=== PATIENT | male | born 1950 | race Caucasian/White ===

== ENCOUNTER 2018-06-04 08:53 | Outpatient (CLI) | payer MEDICARE, BC, SELFPAY | END 2018-06-04 08:54 | PROVIDERS: PCP Family Medicine; Visit Provider Surgery | DX: R10.13 Epigastric pain (principal); I10 Essential (primary) hypertension | CPT/HCPCS: 99213 ==

== ENCOUNTER 2018-08-14 07:35 | Outpatient (CLI) | payer MEDICARE, BC, SELFPAY ==
[2018-08-14 08:02] LABS: Abs Immature Grans 0.02 k/cumm (0.0-0.09); Absolute Basophil Count 0.02 k/cumm (0.0-0.2); Absolute Eosinophil Count 0.11 k/cumm (0.0-0.7); Absolute Lymphocyte Count 2.03 k/cumm (1.2-3.4); Absolute Monocyte Count 0.34 k/cumm (0.11-0.7); Absolute Neutrophil Count 2.65 k/cumm (1.2-6.7); Basophils % 0.4; Eosinophils % 2.1; HCT 42.2 % (40.0-50.0); Immature Grans % 0.4; Lymphocytes % 39.3; Mean Corp. HGB Concentration 33.2 g/dL (32.0-36.0); Mean Corpuscular Volume 96.3 fL (80-95); Mean Platelet Volume 8.9 fL (8.0-11.0); Monocytes % 6.6; Neutrophils % 51.2; Platelet Count 115 x1000/uL (130-400); RBC 4.38 m/cumm (4.50-6.00); RBC Distribution Width 12.7 % (11.8-14.1); White Blood Cell Count 5.17 k/cumm (4.4-10.8)
[2018-08-14 08:14] LABS: ALT 55 U/L (12-78); AST 27 U/L (15-37); Albumin 3.4 g/dL (3.4-5.0); Alkaline Phosphatase 189 U/L (46-116); Anion Gap 6.3 mmol/L (3-11); BUN 36 mg/dL (7-18); Bilirubin, Total 0.5 mg/dL (0.2-1.0); CO2 29.7 mmol/L (21.0-32.0); Calcium 9.1 mg/dL (8.5-10.1); Chloride 104 mmol/L (98-107); Estimated GFR 40.53 (mL/min/1.73m2); Glucose 117 mg/dL (70-100); LDH 71 U/L (85-227); Potassium 4.6 mmol/L (3.5-5.1); Sodium 140 mmol/L (136-145); Total Protein 5.8 g/dL (6.4-8.2)
== END 2018-08-14 07:55 ==
PROVIDERS: PCP Family Medicine; Visit Provider Internal Medicine Hematology & Oncology
DX: C91.90 Lymphoid leukemia, unspecified not having achieved remission (principal); C83.30 Diffuse large B-cell lymphoma, unspecified site
CPT/HCPCS: 36415; 80053; 83615; 85025

== ENCOUNTER 2019-03-26 01:44 | Outpatient (CLI) | payer MEDICARE, BC, SELFPAY ==
[2019-03-26 08:55] LABS: Abs Immature Grans 0.01 k/cumm (0.0-0.09); Absolute Basophil Count 0.03 k/cumm (0.0-0.2); Absolute Eosinophil Count 0.09 k/cumm (0.0-0.7); Absolute Lymphocyte Count 2.21 k/cumm (1.2-3.4); Absolute Monocyte Count 0.36 k/cumm (0.11-0.7); Absolute Neutrophil Count 2.26 k/cumm (1.2-6.7); Basophils % 0.6; Eosinophils % 1.8; HCT 45.7 % (40.0-50.0); HGB 15.5 g/dL (13.5-17.5); Immature Grans % 0.2; Lymphocytes % 44.6; Mean Corp. HGB Concentration 33.9 g/dL (32.0-36.0); Mean Corpuscular Hemoglobin 31.2 pg (27.0-33.0); Mean Platelet Volume 9.9 fL (8.0-11.0); Monocytes % 7.3; Neutrophils % 45.5; Platelet Count 110 x1000/uL (130-400); RBC 4.97 m/cumm (4.50-6.00); RBC Distribution Width 12.4 % (11.8-14.1); White Blood Cell Count 4.96 k/cumm (4.4-10.8)
[2019-03-26 09:16] LABS: ALT 31 U/L (12-78); AST 23 U/L (15-37); Albumin 3.7 g/dL (3.4-5.0); Alkaline Phosphatase 118 U/L (46-116); Anion Gap 7.4 mmol/L (3-11); BUN 32 mg/dL (7-18); Bilirubin, Total 0.6 mg/dL (0.2-1.0); CO2 29.6 mmol/L (21.0-32.0); CREATININE 1.88 mg/dL (0.70-1.30); Calcium 8.7 mg/dL (8.5-10.1); Chloride 103 mmol/L (98-107); Estimated GFR 36.08 (mL/min/1.73m2); Glucose 92 mg/dL (70-100); LDH 92 U/L (85-227); Potassium 4.2 mmol/L (3.5-5.1); Sodium 140 mmol/L (136-145)
== END 2019-03-26 02:04 ==
PROVIDERS: PCP Family Medicine; Visit Provider Internal Medicine Hematology & Oncology
DX: C91.90 Lymphoid leukemia, unspecified not having achieved remission (principal)
CPT/HCPCS: 36415; 80053; 83615; 85025

== ENCOUNTER 2019-07-18 01:21 | Outpatient (CLI) | payer MEDICARE, BC, SELFPAY ==
[2019-07-18 08:57] LABS: Abs Immature Grans 0.02 k/cumm (0.0-0.09); Absolute Basophil Count 0.03 k/cumm (0.0-0.2); Absolute Eosinophil Count 0.11 k/cumm (0.0-0.7); Absolute Lymphocyte Count 2.95 k/cumm (1.2-3.4); Absolute Neutrophil Count 4.99 k/cumm (1.2-6.7); Basophils % 0.3; Eosinophils % 1.3; HCT 47.2 % (40.0-50.0); HGB 16.1 g/dL (13.5-17.5); Immature Grans % 0.2; Lymphocytes % 33.9; Mean Corp. HGB Concentration 34.1 g/dL (32.0-36.0); Mean Corpuscular Hemoglobin 30.8 pg (27.0-33.0); Mean Corpuscular Volume 90.4 fL (80-95); Mean Platelet Volume 9.2 fL (8.0-11.0); Monocytes % 6.9; Neutrophils % 57.4; Platelet Count 127 x1000/uL (130-400); RBC 5.22 m/cumm (4.50-6.00); RBC Distribution Width 12.9 % (11.8-14.1)
[2019-07-18 09:10] LABS: ALT 40 U/L (16-63); AST 34 U/L (15-37); Alkaline Phosphatase 108 U/L (46-116); Anion Gap 8.5 mmol/L (3-11); BUN 38 mg/dL (7-18); Bilirubin, Total 0.9 mg/dL (0.2-1.0); CO2 27.5 mmol/L (21.0-32.0); CREATININE 1.71 mg/dL (0.70-1.30); Chloride 103 mmol/L (98-107); Estimated GFR 40.25 (mL/min/1.73m2); Glucose 92 mg/dL (70-100); LDH 100 U/L (85-227); Potassium 4.3 mmol/L (3.5-5.1); Sodium 139 mmol/L (136-145); Total Protein 6.4 g/dL (6.4-8.2)
== END 2019-07-18 01:41 ==
PROVIDERS: PCP Family Medicine; Visit Provider Internal Medicine Hematology & Oncology
DX: C91.90 Lymphoid leukemia, unspecified not having achieved remission (principal)
CPT/HCPCS: 36415; 80053; 83615; 85025

== ENCOUNTER 2019-12-24 01:45 | Outpatient (CLI) | payer MEDICARE, BC, SELFPAY ==
[2019-12-24 09:28] LABS: Abs Immature Grans 0.02 k/cumm (0.0-0.09); Absolute Basophil Count 0.02 k/cumm (0.0-0.2); Absolute Eosinophil Count 0.06 k/cumm (0.0-0.7); Absolute Lymphocyte Count 2.03 k/cumm (1.2-3.4); Absolute Monocyte Count 0.78 k/cumm (0.11-0.7); Basophils % 0.2; Eosinophils % 0.6; HGB 15.5 g/dL (13.5-17.5); Immature Grans % 0.2 %; Lymphocytes % 21.3; Mean Corp. HGB Concentration 33.7 g/dL (32.0-36.0); Mean Corpuscular Hemoglobin 30.6 pg (27.0-33.0); Mean Corpuscular Volume 90.9 fL (80-95); Mean Platelet Volume 9.5 fL (8.0-11.0); Monocytes % 8.2; Neutrophils % 69.5; Platelet Count 110 x1000/uL (130-400); RBC 5.06 m/cumm (4.50-6.00); RBC Distribution Width 12.8 % (11.8-14.1); White Blood Cell Count 9.51 k/cumm (4.4-10.8)
[2019-12-24 09:47] LABS: ALT 76 U/L (16-63); AST 42 U/L (15-37); Albumin 3.5 g/dL (3.4-5.0); Alkaline Phosphatase 138 U/L (46-116); Anion Gap 6.5 mmol/L (3-11); BUN 28 mg/dL (7-18); Bilirubin, Total 0.7 mg/dL (0.2-1.0); CO2 30.5 mmol/L (21.0-32.0); CREATININE 1.68 mg/dL (0.70-1.30); Calcium 8.9 mg/dL (8.5-10.1); Chloride 102 mmol/L (98-107); Estimated GFR 40.96 (mL/min/1.73m2); Glucose 110 mg/dL (74-106); LDH 106 U/L (85-227); Potassium 4.2 mmol/L (3.5-5.1); Sodium 139 mmol/L (136-145); Total Protein 6.2 g/dL (6.4-8.2)
== END 2019-12-24 02:05 ==
PROVIDERS: PCP Family Medicine; Visit Provider Internal Medicine Hematology & Oncology
DX: C83.30 Diffuse large B-cell lymphoma, unspecified site (principal)
CPT/HCPCS: 36415; 80053; 83615; 85025

== ENCOUNTER 2020-02-25 19:43 | Observation (INO) | payer MEDICARE, BC, SELFPAY ==
--- NOTE | 2020-02-25 19:45 | DI.CT_ITS ---
EXAM: CT HEAD WO CLINICAL HISTORY: AMS TECHNIQUE: COMPARISON: No exams were available for comparison FINDINGS: Noncontrast cranial CT was performed. There is moderate generalized cerebral atrophy and there are p atchy areas of decreased attenuation in periventricular white matter consistent with microvascular is chemic changes. There is no evidence of acute intracranial hemorrhage, mass effect, or midline shift . The orbital and temporal bone structures appear intact. Paranasal sinuses and mastoid air cells appe ar clear as visualized. IMPRESSION: Atrophy and microvascular ischemic changes very prominent for this age group. No acute abnormality s een.
--- NOTE | 2020-02-25 19:45 | DI.RAD_ITS ---
EXAM: XR CHEST 2V PA LATERAL CLINICAL HISTORY: AMS TECHNIQUE: 2D digital imaging was performed. COMPARISON: CR CHEST 2 VIEWS PA,LAT from 07/08/2016 FINDINGS: The heart is not enlarged. The lungs are clear and well expanded. No pleural effusion seen. Mediastin al contours appear intact. IMPRESSION: Normal chest
[2020-02-25 19:49] VITALS: BP 170/106; PULSE 98; RESP 16; TEMP 36.6; O2SAT 97
[2020-02-25 19:52] VITALS: RESP 16
--- NOTE | 2020-02-25 19:57 | ED.GENADUL_ITS ---
Discharge Plan Disposition Patient Disposition: [facility] INPATIENT Condition: Good Discharge Details Chief Complaint: GenMedical Clinical Impression: Amnesia Admit Date/Time: 02/25/20 21:51 Admit Provider: Devin Jeffrey Attending Provider: Chelsea Vega Primary Care Provider: Terence Morton ED Provider: Brian Courtney Hospital Course Hospital Course: Mr Vega is a 69 year old male with PMHx of CLL s/p stem cell transplant, as well as hypertension, CKD III (baseline Cr 1.6-1.8), and underlying mild congnitive impairement who was observed on [facility] hospitalist service from 02/25/2020 - 02/26/2020 after having an episode of confusion/forgetfulness and repetitive speech on top of his baseline word-finding issues, asking the same question over and over. His symptoms had mostly resolved by the time he was examined by the admitting provider. The patient's workup consisted of negative non-contrast CT of the head, showing atrophy and pronounced microvascular changes. 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 He did not have carotid disease on ultrasound or MRA. His echocardiogram result is still pending and should be followed up by PCP. His BP was quite labile today but will need to be followed up in an outpatient setting by PCP prior to initiating any antihypertensives. The patient was evaluated by Dr Dawkins of neurology in consultation, whose impression was that the patient had transient global amnesia. He is being discharged home today at his neurologic baseline with instructions to take asa 81 mg PO daily and to follow up with neurology in 4-6 weeks. Discharge Instructions Instructions: Transient Global Amnesia (GEN) Additional Instructions: Return to the hospital with any fever, bleeding, chest pain, shortness of breath, or return/ new neurological deficits. Follow up with you PCP in 1-2 weeks and with neurology in 4-6 weeks. Forms: Nursing Discharge Form Referrals: Terence Morton MD [Primary Care Provider] - (please call to follow up ) Di Dawkins MD [ [facility] STAFF PHYSICIAN] - (Transient global amnesia - 4-6 weeks) Discharge Data Discharge Date/Time-TO BE ENTERED AT DEPARTURE: 02/25/20 23:15 Medical Decision Making <Daya Piburn, PA - Last Filed: 02/27/20 16:29> Patient is a pleasant 69-year-old male, accompanied by his , with chief complaint of confusion. Patient initially came in by himself and was unclear as to why he was in the department. Subsequently, we had his come in reports that he has been confused for the past hour. She reports mild confusion earlier in the day, estimates this began approximately 6 hours ago but noted an acute decline 1 hour ago. States that typically he might have some mild forgetfulness which one would deem normal. However, had never noticed episode like this historically. Reports that he cannot recall events earlier in the day, was unclear who he had been on the phone with just prior to being asked. Denied any other symptoms throughout the time of symptoms. and patient do report increased stress and anxiety around COVID. No recent life changes otherwise. Patient is not on any medication. Denies any drug or alcohol use. On exam, patient is resting comfortably. He appears to be in no acute distress. He is alert and oriented x3 although he is clearly confused about the events earlier today and seems to be reaching for these memories. His speech is clear and appropriate. I am not finding any neurologic deficit aside from him having difficulty with memory finding from the course of the day. Do not see any evidence of trauma. No nuchal rigidity or evidence of infection. Lungs are clear, normal cardiac exam. Patient is noted to be hypertensive with a blood pressure of 170/106. Pulse rate is 98. EKG was reviewed by Dr. Courtney. Patient is in normal sinus rhythm with a rate of 86. No acute ischemic changes noted. Differential diagnosis includes CVA, TIA, metabolic derangement, seizure, transient global amnesia versus other. Will obtain head CT with and without contrast as well as laboratory evaluation. Discussed this plan with the patient and his . BGL 149 Plan of my shift, care was transitioned to Dr. Courtney with labs and imaging pending. <Brian Courtney DO - Last Filed: 02/25/20 21:56> Case was seen by Daya Rinaldi, and seen in conjunction with myself. Please refer to her HPI, physical exam, assessment and plan. 69-year-old male with a past medical history of CLL, hypertension, presents today for evaluation of memory changes. Starting this morning his noticed that he was having a slightly more challenging time than normal forming sentences and getting his words straight. No slurring of his speech or mispronunciations though. Later in the day they had a few events in particular that one would think would be memorable however later upon quizzing the patient did not recall any of these events. He was notably frustrated later in the day for a lack of recollection for various things he had ordered online, events that occurred during the day, other components. There is been a transient slight improvement upon his arrival here, and he seems to have understanding of what he had forgotten, and is now starting to remember some components. Physical exam is notably benign with no focal neurologic deficits or signs of significant abnormality. Vital signs are stable aside from mild hypertension. Differential is broad, but includes transient global amnesia, less likely atypical seizure, stroke, symptoms are clinically inconsistent with meningitis, trauma, or dysrhythmia. EKG benign. Metabolic abnormality potential but unlikely. Laboratory work-up and imaging will be performed for further evaluation. 9:43 PM Laboratory work-up has returned, no significant abnormalities, BUN and creatinine is slightly elevated, however this is near his baseline. Troponin normal. TSH normal. Ammonia unremarkable. EKG shows sinus rhythm, no other significant abnormalities. Chest x-ray negative for acute process, CT scan of the head negative for acute process except for a small punctate skin and scalp calcification unrelated to trauma. On reassessment the patient is feeling well, memory is returning but he still demonstrating memory deficit which is again notably atypical for the patient. He does not recall all of the conversations that we had earlier in her visit. I do feel that the patient would benefit from admission MRI carotid ultrasound. Differential still is highest for transient global amnesia, TIA/stroke. symptoms inconsistent with meningitis, or metabolic abnormality. Discussed the case with the hospitalist Dr. Hernandez within, he agrees with the assessment and plan. We will give a full dose aspirin here. I have extensively reviewed the treatment plan with the patient. I have addressed all patient concerns at this time. I have also discussed the plan with the admitting physician and they agree with the current assessment and plan and have agreed to assume responsibility for the patient. All parties demonstrate verbal understanding and agreement with our assessment and plan at this time. FINDINGS: Brain: There is mild periventricular hypodensity consistent with chronic microischemic changes of white matter. There is no evidence of acute intracranial hemorrhage or mass effect on the ventricular system. There are no extra-axial fluid collections or midline shift. The posterior fossa appears unremarkable. Ventricles: There is mild ventriculomegaly and prominent sulci. Bones/joints: Unremarkable. No acute fracture. Sinuses: Visualized sinuses are unremarkable. No fluid levels. Mastoid air cells: Visualized mastoid air cells are well aerated. Soft tissues: Multiple punctate skin calcifications are seen in the patient's forehead and scalp.. IMPRESSION: 1. Age-appropriate involutional changes of the brain. 2. Mild cerebral small-vessel disease. 3. No acute intracranial abnormality. 4. Punctate skin and scalp calcifications as may be seen in osteoma cutis or calcified sebaceous cysts. These may sometimes reflect it calcium metabolism abnormality. No one else, Thank you for allowing us to participate in the care of your patient. Dictated and Authenticated by: Mango Quintana MD 02/25/2020 9:28 PM Eastern Time ([place]) FINDINGS: Lungs: There is no consolidation. There is mild pulmonary hyperexpansion, flattening of the hemidiaphragms and increased retrosternal space consistent with COPD. Pleural space: No pleural effusion or pneumothorax. Heart/Mediastinum: Normal in size. Bones/joints: The spine demonstrates mild degenerative changes at multiple levels. IMPRESSION: 1. Findings consistent with COPD. 2. No evidence of pneumonia. Thank you for allowing us to participate in the care of your patient. Dictated and Authenticated by: Mango Quintana MD 02/25/2020 9:31 PM Eastern Time ([place]) HPI <EMMETT Hanna - Last Filed: 02/27/20 16:29> General Mode of arrival: ambulatory . Date/Time Provider Initiated Documentation: 02/25/20 19:43 . Limitations to Documentation: altered mental status . Information obtained by: patient, family () and RN notes reviewed . HPI Narrative: Patient is a pleasant 69-year-old male, brought in by his , with chief concern for altered mental status. Past medical history significant for CLL, depression, hypertension. Patient is currently in remission had stem cell transplant 3 years ago. Last visit at [facility] for evaluation and follow-up a few months ago at which time imaging and laboratory evaluation was normal. reports that the patient became acutely confused approximately 1 hour ago. She reports that looking back throughout the day he was more confused, estimates first noticing this around 1 PM, 7 hours prior to arrival. Patient denies any complaints. has not noted a change in his behavior otherwise. Reports normal appetite. Denies patient endorsing any headache. Denies patient endorsing any pain during this episode. Related Data Home Medications Medication Instructions Recorded Confirmed aspirin 81 mg PO DAILY #30 tab 02/26/20 Previous Rx's Medication Instructions Recorded aspirin 81 mg PO DAILY #30 tab 02/26/20 Allergies Allergy/AdvReac Type Severity Reaction Status Date / Time No Known Allergies Allergy Verified 02/08/19 09:02 General Stated Complaint: GenMedical PERRY: 2 Review of Systems <EMMETT Hanna - Last Filed: 02/27/20 16:29> Constitutional Constitutional: Reports as per HPI, Denies chills, Denies fatigue, Denies fever(s), Denies frequent falls, Denies headache(s), Denies snoring and Denies weakness Eyes Eyes: Reports as per HPI, Denies blurry vision, Denies change in vision and Reports photophobia ENT Ears, Nose, Mouth, and Throat: Denies vertigo, Denies headache(s) and Denies neck pain Cardiovascular Cardiovascular: Reports as per HPI, Denies chest pain, Denies lightheadedness, Denies radiating jaw, neck or arm pain, Denies dyspnea and Denies dyspnea on exertion Respiratory Respiratory: Reports as per HPI, Denies chest congestion, Denies cough, Denies dyspnea, Denies dyspnea on exertion, Denies snoring, Denies stridor and Denies wheezing Gastrointestinal Gastrointestinal: Reports as per HPI, Denies abdominal pain, Denies change in bowel habits, Denies nausea and Denies vomiting Genitourinary Genitourinary: Reports system reviewed and no additional complaints, except as documented (denies change in urinary habits) Musculoskeletal Musculoskeletal: Reports as per HPI, Denies back pain, Denies myalgias, Denies muscle cramps, Denies neck pain and Denies numbness Integumentary/Breasts Skin/Breast: Reports as per HPI and Denies rash Neurologic Neurologic: Reports as per HPI, Denies abnormal movements, Denies abnormal speech, Denies behavioral changes, Reports confusion, Denies vertigo, Denies frequent falls, Denies headache(s), Denies localized weakness, Denies numbness, Denies sensory deficit and Denies weakness Psychiatric Psychiatric: Reports anxiety, Denies behavioral changes and Reports confusion Endocrine Endocrine: Denies fatigue Allergic/Immunologic Allergic/Immunologic: Denies wheezing PFSH <EMMETT Hanna - Last Filed: 02/27/20 16:29> Medical History (Updated 02/26/20 @ 20:39 by Di Dawkins MD) CKD (chronic kidney disease) (Acute) CLL (chronic lymphocytic leukemia) Depressive disorder (Resolved) Essential hypertension Essential hypertension (Resolved 01/09/18) Mild cognitive impairment (Chronic) Non-Hodgkin lymphoma Surgical History (Updated 02/26/20 @ 01:15 by Devin Jeffrey) EGD - MAC (06/05/18) History of stem cell transplant (Acute) Laparotomy After perforation from ERCP Ulnar Nerve Transposition Family History Mother No problems noted. Father , 74 AML (acute myeloblastic leukemia) Sister No problems noted. Brother Hyperlipidemia Maternal Grandfather Stroke Paternal Grandfather , 55 Lymphoma Maternal Grandmother , 90 Essential hypertension Paternal Grandmother , 90 No problems noted. Brother No problems noted. Brother No problems noted. Son No problems noted. Son No problems noted. 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 Pets and animals: Yes Pets and animals: cat(s) Current gender identity: decline to answer What is your relationship status?: How often do you talk on the phone with friends or family?: once per week How often do you get together with friends or relatives?: three or more times per week How often do you attend druze or restorationism services?: 4 or more times per year Do you belong to any clubs or organized social groups?: yes Panel score (0-1 are the most socially isolated patients): 4 What type of physical activity do you participate in: walking and other Duration: 60-90 minutes/day Frequency: 5-6 times per week Erica/Zoroastrian: Congregational Agree to transfusion: No Seatbelt use: always Helmet use: Yes Helmet use: always Drive intox or ride w/intox stacker driver: No Do you feel safe at home: Yes Do you feel safe in your relationship?: Yes Exam <EMMETT Hanna - Last Filed: 02/27/20 16:29> Const General: cooperative, healthy appearing, comfortable, no acute distress, well de veloped and well groomed Nutritional Appearance: average body habitus and well nourished Orientation: alert, awake, oriented x3 and confused (Patient unclear as to why he is here) HENIL Head: normal to inspection, no palpable skull fracture, normocephalic and atraumatic Ears: hearing grossly normal bilaterally, external ears normal and TM's normal bilaterally General nose exam: external nose normal Mouth: oral mucosae normal and moist mucous membranes Throat: posterior oropharynx normal Eyes General: appearance normal, both eyes and all related structures Alignment and Position: alignment normal Periorbital: periorbital findings normal Eyelids: eyelids normal Sclera: sclerae normal Cornea: corneas normal Pupils: PERRL EOM: EOM intact bilaterally Neck Neck: normal visual inspection, full ROM, no lymphadenopathy and no meningeal signs Resp Effort & Inspection: normal respiratory effort, able to speak in complete sentences and no respiratory distress Auscultation: clear to auscultation bilaterally, no rales, no rhonchi and no wheezes Cardio Rate: regular rate Rhythm: regular rhythm Heart Sounds: S1 normal and S2 normal GI Inspection: normal to inspection and non-distended Palpation: soft, no hepatosplenomegaly, not firm, no guarding, not rigid and nontender Percussion: normal to percussion Auscultation: normal bowel sounds Back/Spine/Pelvis Cervical Spine: normal cervical lordosis and cervical ROM normal Skin General skin exam: no rashes or lesions noted Neuro General: patient alert, patient awake and patient oriented x3 Cranial Nerves: CN's II-XI intact bilaterally Cognition: normal cognition Speech: speech normal Gait: normal gait Motor: muscle tone normal throughout, strength 5/5 throughout, no pronator drift, no movement abnormalities noted and no fasciculations Sensory Exam: no sensory deficits noted Coordination: herclo-ro-btxy test normal, wlvt-qm-odga test normal, Romberg test normal, tandem gait normal, Does not sway with eyes open and rapid alternating movement UE normal Extrem General: normal to inspection, capillary refill normal, no pedal edema and no calf tenderness Psych Appearance: grossly normal and well kempt Mental Status: mental status grossly normal Speech and Movement: speech and movement normal Course <EMMETT Hanna - Last Filed: 02/27/20 16:29> Vital Signs Vital signs: Vital Signs Temperature 36.6 C 02/25/20 19:49 Pulse 98 H 02/25/20 19:49 Respiratory Rate 16 02/25/20 19:49 Blood Pressure 170/106 H 02/25/20 19:49 Pulse Oximetry 97 02/25/20 19:49 Temperature 36.6 C 02/25/20 19:49 Temperature Source Skin 02/25/20 19:49 Pulse 98 H 02/25/20 19:49 Respiratory Rate 16 02/25/20 19:52 Respiratory Effort 02/25/20 19:52 Respiratory Depth Normal 02/25/20 19:52 Respiratory Pattern Normal 02/25/20 19:52 Blood Pressure 170/106 H 02/25/20 19:49 Blood Pressure Position Sitting 02/25/20 19:49 Pulse Oximetry 97 02/25/20 19:49 Oxygen Delivery Method Room Air 02/25/20 19:49 Oxygen Flow Rate 0 02/25/20 19:49 Pain Level 0 02/25/20 19:49 Sign Out <EMMETT Hanna - Last Filed: 02/27/20 16:29> Sign Out Data: Sign Out Comment: Labs and imaging pending, care transitioned to Dr. Courtney. Last updated by Daya Sears PA at 02/25/20 20:43
[2020-02-25] MEDS: Normal Saline 1,000 ML 125 ML IV (20:15)
--- NOTE | 2020-02-25 20:17 | NUR.NOTE ---
To room 4, Pt states he does not know why he is in the ED. He has no c/o pain, discomfort. to room, states that pt has had difficulty with his memory today since approx 1300. Pt was unable to recall the activities he did today, had word finding difficulty. later on he was able to recall events and identify objects that he had previously been unable to identify. 5/5 strength in all extremities. speaking in full clear sentences.
[2020-02-25 20:21] LABS: Abs Immature Grans 0.01 k/cumm (0.0-0.09); Absolute Basophil Count 0.03 k/cumm (0.0-0.2); Absolute Eosinophil Count 0.11 k/cumm (0.0-0.7); Absolute Neutrophil Count 4.28 k/cumm (1.2-6.7); Basophils % 0.4; Eosinophils % 1.4; HGB 15.6 g/dL (13.5-17.5); Immature Grans % 0.1 %; Lymphocytes % 36.7; Mean Corp. HGB Concentration 33.9 g/dL (32.0-36.0); Mean Corpuscular Hemoglobin 30.8 pg (27.0-33.0); Mean Corpuscular Volume 90.7 fL (80-95); Mean Platelet Volume 9.7 fL (8.0-11.0); Monocytes % 5.2; Neutrophils % 56.2; Platelet Count 110 x1000/uL (130-400); RBC 5.07 m/cumm (4.50-6.00); RBC Distribution Width 12.8 % (11.8-14.1); White Blood Cell Count 7.63 k/cumm (4.4-10.8)
[2020-02-25 20:34] LABS: Ammonia < 10 umol/L (11-32)
[2020-02-25 20:42] LABS: ALT 49 U/L (16-63); AST 37 U/L (15-37); Albumin 3.9 g/dL (3.4-5.0); Alkaline Phosphatase 91 U/L (46-116); Anion Gap 6.6 mmol/L (3-11); BUN 41 mg/dL (7-18); Bilirubin, Total 0.4 mg/dL (0.2-1.0); CO2 29.4 mmol/L (21.0-32.0); CREATININE 1.88 mg/dL (0.70-1.30); Calcium 8.8 mg/dL (8.5-10.1); Chloride 103 mmol/L (98-107); Estimated GFR 35.97 (mL/min/1.73m2); Glucose 160 mg/dL (74-106); Magnesium 1.8 mg/dL (1.8-2.4); Potassium 3.7 mmol/L (3.5-5.1); Sodium 139 mmol/L (136-145); TSH 1.86 uIU/mL (0.36-3.74); Total Protein 6.4 g/dL (6.4-8.2)
[2020-02-25 20:43] VITALS: RESP 16
[2020-02-25 20:45] LABS: Troponin I < 0.05 ng/Ml (<0.06)
[2020-02-25 20:54] LABS: BE (Venous) 2.6 mmol/L (-3-3); HCO3 (Venous) 27 mmol/L (22-28); O2 Sat (Venous) 81 % (70-80); TCO2 (Venous) 24 mmol/L (22-29); pCO2 (Venous) 43 mm/Hg (34-47); pH (Venous) 7.41 (7.35-7.45); pO2 (Venous) 46 mm/Hg (28-44)
--- NOTE | 2020-02-25 21:28 | DI.VRAD_ITS ---
PROCEDURE INFORMATION: Exam: CT Head Without Contrast Exam date and time: 02/25/2020 7:59 PM Age: 69 years old Clinical indication: Other: AMS TECHNIQUE: Imaging protocol: Computed tomography of the head without contrast. COMPARISON: No relevant prior studies available. FINDINGS: Brain: There is mild periventricular hypodensity consistent with chronic microischemic changes of white matter. There is no evidence of acute intracranial hemorrhage or mass effect on the ventricular system. There are no extra-axial fluid collections or midline shift. The posterior fossa appears unremarkable. Ventricles: There is mild ventriculomegaly and prominent sulci. Bones/joints: Unremarkable. No acute fracture. Sinuses: Visualized sinuses are unremarkable. No fluid levels. Mastoid air cells: Visualized mastoid air cells are well aerated. Soft tissues: Multiple punctate skin calcifications are seen in the patient's forehead and scalp.. IMPRESSION: 1. Age-appropriate involutional changes of the brain. 2. Mild cerebral small-vessel disease. 3. No acute intracranial abnormality. 4. Punctate skin and scalp calcifications as may be seen in osteoma cutis or calcified sebaceous cysts. These may sometimes reflect it calcium metabolism abnormality. Dictated and Authenticated by: Mango Quintana MD. Ordering:BELIA Stapleton MD
--- NOTE | 2020-02-25 21:31 | DI.VRAD_ITS ---
PROCEDURE INFORMATION: Exam: XR Chest, 2 Views Exam date and time: 02/25/2020 9:10 PM Age: 69 years old Clinical indication: Other: AMS TECHNIQUE: Imaging protocol: XR of the chest Views: 2 views. COMPARISON: No relevant prior studies available. FINDINGS: Lungs: There is no consolidation. There is mild pulmonary hyperexpansion, flattening of the hemidiaphragms and increased retrosternal space consistent with COPD. Pleural space: No pleural effusion or pneumothorax. Heart/Mediastinum: Normal in size. Bones/joints: The spine demonstrates mild degenerative changes at multiple levels. IMPRESSION: 1. Findings consistent with COPD. 2. No evidence of pneumonia. Dictated and Authenticated by: Mango Quintana MD. Ordering:BELIA Stapleton MD
[2020-02-25] MEDS: Aspirin 325 MG TAB PO (21:59)
[2020-02-25 22:03] VITALS: BP 159/99; PULSE 76; RESP 20; TEMP 36.8; O2SAT 96
[2020-02-25 23:20] VITALS: BP 159/102; PULSE 74; RESP 18; TEMP 36.3; O2SAT 99
[2020-02-25] MEDS: Normal Saline Flush 10 ML SYR IVP (23:46)
--- NOTE | 2020-02-25 23:59 | W.PM.HP.N ---
Date of service: 02/25/20 Time of Service: 23:59 Assessment and Plan Assessment and plan (1) TIA (transient ischemic attack): Status: Suspected Assessment and plan: No focal motor or sensory deficits reported nor found. No evidence of Babinski reflex. No aphasia. Some reported short term memory deficitis reported at baseline but today's episode sounded more like confusion and lack of recollection of the days events. However, he seems to recall his day, however, I have no external frame of reference to compare with. It will be more helpful in the a.m. to discuss w/ his the exact events that occurred and see if her assessment of his behavior and recollections are now back to his baseline. In the interim we will monitor his heart rhythm for any afib, get MRI/MRA of brain to rule out small strokes and check carotid US and echocardiogram. He will be hydrated overnight w/ repeat labs in the a.m. including BMP and will check glycohemoglobin A1c to assess for occult DM and check his lipid profile. 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 (2) Elevated blood pressure reading: Status: Acute Assessment and plan: As above (3) Acute kidney injury (nontraumatic): Status: Acute Assessment and plan: It appears that he has some component of CKD and superimposes AMRIT. Possibly dehydration. His usual BUN is 25 to 30 but is now 41 and his usual creatinine is 1.5 to 1.7 but is now up to 1.88. I will hydrate him overnight and repeat his BMP in the a.m. Will also check urine microalbumin and urinary protein to creatinine ratio. (4) Elevated glucose: Status: Acute Assessment and plan: monitor glucose ac/hs and check glycohemoglobin A1c in the a.m. to assess shelter control. History of Present Illness History of Present Illness Chief Complaint: Acute confusion and transient memory loss Narrative: 69-year-old male with a past medical history of essential hypertension and CLL status post stem cell transplant few years ago presents emergency department with acute onset of confusion associated with transient memory loss. All information is obtained from my interview with the patient as well as review of the ER chart and my discussion with Dr. Dustin Courtney. Patient is not able to give me an accurate description of what his confusion was. However Dr. Courtney indicated that the patient developed acute confusion that the initially stated about an hour prior to arrival around 7 PM and the patient confirms this. Patient states that he is has been cutting up a [place] earlier in the afternoon and they came and had some dinner and the patient was cleaning up dishes and preparing to have a Zoom/online AA meeting when his noticed that he was not making any sense in what he was saying. However, upon further questioning by the ER staff his recalled that he was having difficulty recalling events earlier in the day and his symptoms may have started 6 or 7 hours prior to his presentation to the ER. Per Dr. Courtney, the patient was having trouble recalling conversations that he had with the patient earlier in his ER visit, although he seemed to be appropriate in his answers and exhibited no dysarthric speech nor any word finding difficulty. The patient himself admits to having some difficulty w/ short term recall for some time now but states that he usually can recall if given enough time. He denies any diplopia, loss of vision, headaches, fever, rigors, palpitations, dyspnea nor any focal weakness nor focal numbness nor any imbalance nor LOC. He feels that he is fine now. Workup in the ER revealed mild hypertension w/ BP 170/106 (now 159/102) , pulse 98, afebrile, no hypoxemia. EKG NSR, w/out ischemia. Labs remarkable for elevated BUN 48, creatinine 1.88 and glucose 160, otherwise normal electrolytes, LFT and troponin and CBC (except platelet 110,000). CT head w/o contrast: no bleed, age related atrophy and small vessel ischemic disease. He was given ASA 324 mg in the ER and is admitted to hospital on observation for neuro checks, iv fluids, repeat labs and further neurologic workup of possible TIA to include MRI brain, MRA brain and cervical vessels, echocardiogram. Review of Systems All systems reviewed & are unremarkable except as noted in HPI and below [facility] Medical History (Updated 02/26/20 @ 01:25 by Devin Jeffrey) CLL (chronic lymphocytic leukemia) Depressive disorder (Resolved) Essential hypertension Essential hypertension (Resolved 01/09/18) Non-Hodgkin lymphoma Surgical History (Updated 02/26/20 @ 01:15 by Devin Jeffrey) EGD - MAC (06/05/18) History of stem cell transplant (Acute) Laparotomy After perforation from ERCP Ulnar Nerve Transposition Family History Mother No problems noted. Father , 74 AML (acute myeloblastic leukemia) Sister No problems noted. Brother Hyperlipidemia Maternal Grandfather Stroke Paternal Grandfather , 55 Lymphoma Maternal Grandmother , 90 Essential hypertension Paternal Grandmother , 90 No problems noted. Brother No problems noted. Brother No problems noted. Son No problems noted. Son No problems noted. Social History Smoking/Tobacco Use Status: Former Tobacco Use Quit Date: 10/16/70 Second Hand Exposure: Yes Alcohol Intake: former Drug use: Never Substance use type: former substance user Caregiver/Support person: No Household members: spouse and other Housing: house Communication Needs: None Do you need help understanding health information?: Rarely Pets and animals: Yes Pets and animals: cat(s) Current gender identity: decline to answer What is your relationship status?: How often do you talk on the phone with friends or family?: once per week How often do you get together with friends or relatives?: three or more times per week How often do you attend zoroastrianism or jain services?: 4 or more times per year Do you belong to any clubs or organized social groups?: yes Panel score (0-1 are the most socially isolated patients): 4 What type of physical activity do you participate in: walking and other Duration: 60-90 minutes/day Frequency: 5-6 times per week Erica/Adventist: Caodaism Agree to transfusion: No Seatbelt use: always Helmet use: Yes Helmet use: always 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 Do you feel safe at home: Yes Do you feel safe in your relationship?: Yes Meds Home Medications and Allergies Home Medications Medication Instructions Recorded Confirmed Type Unknown [No Known Home Meds] 02/08/19 02/08/19 History Allergies Allergy/AdvReac Type Severity Reaction Status Date / Time No Known Allergies Allergy Verified 02/08/19 09:02 Exam Narrative Exam Narrative: Alert and oriented x4 HEENT: Atraumatic normocephalic, pupils equally round reactive to light and accommodation, extraocular motion intact, TMs intact, nares moist and patent without exudate or bleeding, oropharynx noninjected without exudate, teeth in good repair Neck: Supple, nontender, without thyromegaly or lymphadenopathy or JVD. Normal carotid pulses Lungs: Clear to auscultation and percussion Heart: Irregular rate/rhythm w/ frequent ectopy, without murmur rub or gallop. Normal apical impulse Abdomen: Nondistended, normal bowel sounds, nontender to palpation or percussion, no organomegaly, no bruits, no palpable masses, well healed midline scare Genitalia and rectal exam: Deferred Prostate: deferred Testes and penis: deferred Extremities: Normal range of motion with normal strength. No peripheral cyanosis or edema. Normal pulses Neurologic: Cranial nerves II through XII grossly within normal limits. Normal strength and sensation over the face trunk and extremities. DTRs within normal limits. No tremors or asterixis. No dysdiadochokinesia. Results Labs Result diagrams: 02/25/20 20:10 02/25/20 20:10 Labs: Laboratory Results - last 24 hr 02/25/20 02/25/20 02/25/20 20:10 20:10 20:10 WBC 7.63 RBC 5.07 Hgb 15.6 Hct 46.0 MCV 90.7 MCH 30.8 MCHC 33.9 RDW 12.8 Plt Count 110 L MPV 9.7 Immature Gran % 0.1 Neutrophils % 56.2 Lymphocytes % 36.7 Monocytes % 5.2 Eosinophils % 1.4 Basophils % 0.4 Absolute Neutrophils 4.28 Absolute Lymphocytes 2.80 Absolute Monocytes 0.40 Absolute Eosinophils 0.11 Absolute Basophils 0.03 VBG pH VBG pCO2 VBG pO2 VBG HCO3 VBG Total CO2 VBG O2 Saturation VBG Base Excess Sodium 139 Potassium 3.7 Chloride 103 Carbon Dioxide 29.4 Anion Gap 6.6 BUN 41 H Creatinine 1.88 H Estimated GFR/1.73 m2 35.97 Glucose 160 H Calcium 8.8 Magnesium 1.8 Total Bilirubin 0.4 AST 37 ALT 49 Alkaline Phosphatase 91 Ammonia < 10 L Troponin I < 0.05 Total Protein 6.4 Albumin 3.9 TSH 1.86 02/25/20 20:45 WBC RBC Hgb Hct MCV MCH MCHC RDW Plt Count MPV Immature Gran % Neutrophils % Lymphocytes % Monocytes % Eosinophils % Basophils % Absolute Neutrophils Absolute Lymphocytes Absolute Monocytes Absolute Eosinophils Absolute Basophils VBG pH 7.41 VBG pCO2 43 VBG pO2 46 H VBG HCO3 27 VBG Total CO2 24 VBG O2 Saturation 81 H VBG Base Excess 2.6 Sodium Potassium Chloride Carbon Dioxide Anion Gap BUN Creatinine Estimated GFR/1.73 m2 Glucose Calcium Magnesium Total Bilirubin AST ALT Alkaline Phosphatase Ammonia Troponin I Total Protein Albumin TSH Last Vital Signs Temp 36.3 C L 02/25/20 23:20 Pulse 74 02/25/20 23:20 Resp 18 02/25/20 23:20 BP 159/102 H 02/25/20 23:20 Pulse Ox 99 02/25/20 23:20 COVID-19 Screening Traveled to [place] from one of the affected countries or regions?: NO Recent travel in the [place] within the last 14 days?: No Recent out of the country travel within the last 14 days?: No Exposure or possible exposure to illness during travel?: No Had IN PERSON contact w/suspected or confirmed C-19 person: No Have you had the following symptoms in the past few days?: No
[2020-02-26 00:09] LABS: Troponin I < 0.05 ng/Ml (<0.06)
[2020-02-26] MEDS: Atorvastatin 40 MG TAB 80 MG PO (01:05)
[2020-02-26] MEDS: Normal Saline 1,000 ML 125 ML IV (03:15)
[2020-02-26 03:45] VITALS: BP 127/76; PULSE 65; RESP 19; TEMP 36.8; O2SAT 99
[2020-02-26 07:01] LABS: Anion Gap 5.5 mmol/L (3-11); BUN 35 mg/dL (7-18); CO2 28.5 mmol/L (21.0-32.0); CREATININE 1.67 mg/dL (0.70-1.30); Calcium 8.7 mg/dL (8.5-10.1); Chloride 107 mmol/L (98-107); Estimated GFR 41.24 (mL/min/1.73m2); Glucose 98 mg/dL (74-106); Potassium 3.9 mmol/L (3.5-5.1); Sodium 141 mmol/L (136-145)
[2020-02-26 07:10] LABS: Hemoglobin A1C 5.3 % (3.8-5.6)
[2020-02-26 07:23] LABS: Calculated LDL 127 mg/dL (<100); Cholesterol 201 mg/dL (<200); HDL Cholesterol 61 mg/dL (40-60); Triglyceride 65 mg/dL (<150)
[2020-02-26 07:27] LABS: Bilirubin Negative (Negative); Blood Negative (Negative); Clarity Clear (Clear); Glucose Negative (Negative); Ketones Negative (Negative); Leukocyte Esterase Negative (Negative); Nitrite Negative (Negative); Urobilinogen 0.2 EU/dL (Up TO 0.2); pH 5.5 (5-8)
[2020-02-26 07:31] LABS: Creatinine,Urine 43.04 mg/dL; PROTEIN 7.1 mg/dL (0.0-11.9)
[2020-02-26 07:34] LABS: COMMENT (LAB VIEW ONLY) 43.92 mg/dL; Microalb ug/mg Crea 12.3 ug/mg Cr
[2020-02-26] MEDS: Aspirin 81 MG CHEW PO (07:42)
[2020-02-26] MEDS: diazePAM 2 MG TAB PO (07:42)
[2020-02-26] MEDS: Enoxaparin 40 MG/0.4 ML SYR SC (07:42)
[2020-02-26 07:51] VITALS: BP 177/85; PULSE 69; RESP 16; TEMP 36.6; O2SAT 97
--- NOTE | 2020-02-26 08:00 | DI.MRI_ITS ---
EXAM: MR BRAIN WO CLINICAL HISTORY: tia. TECHNIQUE: Multiplanar multisequence MRI was performed. COMPARISON: No exams were available for comparison FINDINGS: MR examination of brain was performed according to the usual protocol. There is moderate generalized cerebral atrophy. There are diffuse white matter signal changes consistent with microvascular ische eder changes, additionally there is abnormal signal in right frontal subcortical white matter which ma y represent an old infarct, diffusion-weighted imaging shows no evidence of acute infarction at this site or elsewhere in the brain. No other significant signal abnormality identified in the brain. Susceptibility weighted imaging shows no evidence intracranial hemorrhage. The orbital and temporal bone structures appear intact. Unremarkable appearance of the pituitary. 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 DATA REPOSITORY:
--- NOTE | 2020-02-26 08:00 | DI.MRI_ITS ---
EXAM: MR ANGIO BRAIN WO CLINICAL HISTORY: TIA. TECHNIQUE: Multiplanar multisequence MRI was performed. COMPARISON: MR MR ANGIO NECK WO from 02/26/2020 MR MR BRAIN WO from 02/26/2020 FINDINGS: MR angiography of the brain was performed according to the usual protocol. There is a right dominant vertebral arterial circulation. No evidence of stenosis, dissection, or aneurysm of the vertebral a rteries or basilar artery. Unremarkable appearance of intracranial internal carotid artery, no aneur ysm, dissection, or stenosis. Anterior, middle, and posterior cerebral arteries appear unremarkable bilaterally as do their major branches. No aneurysm of the region of [id number]. IMPRESSION: Negative MR angiography of the brain. DATA REPOSITORY:
--- NOTE | 2020-02-26 08:00 | DI.US_ITS ---
EXAM: US CAROTID CLINICAL HISTORY: tia TECHNIQUE: Ultrasound performed using standard protocol. COMPARISON: US US ECHOCARDIOGRAM from 02/26/2020 FINDINGS: Duplex evaluation of the carotid circulation was performed. There is minimal visible atheromatous pl aque in the carotid bulbs bilaterally. Flow velocities in the common, internal, and external carotid arteries are within normal limits bilaterally. There is bilateral antegrade vertebral flow. IMPRESSION: No evidence of a hemodynamically significant carotid stenosis. DATA REPOSITORY:
--- NOTE | 2020-02-26 08:00 | DI.MRI_ITS ---
EXAM: MR ANGIO NECK WO CLINICAL HISTORY: tia. TECHNIQUE: Multiplanar multisequence MRI was performed. COMPARISON: MR MR BRAIN WO from 02/26/2020 FINDINGS: MR angiography of the carotid circulation was performed according to the usual protocol. The examina tion is of limited technical quality due to patient motion. There is a right dominant vertebral german rial circulation, left vertebral nonvisualized may be present but nonvisualized due to technical reas ons. No gross common or internal carotid artery stenosis as visualized, however mild degrees of sten osis might not be appreciated for technical reasons. IMPRESSION: Technically limited study, no gross vascular lesion identified. Right dominant vertebral circulation . DATA REPOSITORY:
--- NOTE | 2020-02-26 09:15 | INITIAL_ITS ---
- If Service Date Differs Date of service: 02/26/20 Time of Service: 09:15 Care Management Initial Assess REASON FOR HOSPITALIZATION:: TIA PAST MEDICAL HISTORY/PAST SURGICAL HISTORY:: Medical History (Updated 02/26/20 @ 01:25 by Devin Jeffrey). CLL (chronic lymphocytic leukemia). Depressive disorder (Resolved). Essential hypertension. Essential hypertension (Resolved 01/09/18). Non-Hodgkin lymphoma. Surgical History (Updated 02/26/20 @ 01:15 by Devin Jeffrey). EGD - MAC (06/05/18). History of stem cell transplant (Acute). Laparotomy. After perforation from ERCP. Ulnar Nerve Transposition PREVIOUS FUNCTIONAL STATUS/SOCIAL/FAMILY SUPPORTS:: Win lives in a single family home in [place], [place] with his Naomi. 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 His was a teacher also. Between them, Win and Naomi have 5 children and several grandchildren, most of whom are in the area. Win describes his family as very supportive. He is independent and active at baseline. CURRENT FUNCTIONAL STATUS:: Win was sitting up in a chair when CM met with him. He was pleasant, talkative and engaged readily in conversation. 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 He is hoping to be discharged later today after a neurology consult, as his presenting symptoms have resolved. ADVANCE DIRECTIVES:: None on file Has patient been provided with information about the portal?: Yes Did the patient sign up for the portal?: No CODE STATUS:: Full Code INSURANCE COVERAGE / FINANCIAL ISSUES:: Medicare. BS CURRENT HOME/COMMUNITY SERVICES/EQUIPMENT:: None currently PRIMARY CARE PHYSICIAN:: Terence Morton POTENTIAL DISCHARGE NEEDS:: Follow up with PCP and discharge plan of care PATIENT/FAMILY EDUCATION NEEDS:: Discharge plan, limitations, follow up plan, Ask Me Three TRANSPORTATION:: via private vehicle with PLAN:: Win will likely be discharged home with no new services. He will follow up with his PCP and discharge plan of care and transport via private vehicle with his .. CM will continue to support patient, family and discharge planning needs.
[2020-02-26 12:04] VITALS: BP 155/84; PULSE 70; RESP 14; TEMP 36.3; O2SAT 91
--- NOTE | 2020-02-26 13:26 | DSE_ITS ---
Date of service: 02/26/20 Time of Service: 13:27 DS: Diagnosis Discharge Diagnosis (1) TIA (transient ischemic attack): Status: Suspected (2) Elevated blood pressure reading: Status: Acute (3) Acute kidney injury (nontraumatic): Status: Acute (4) Elevated glucose: Status: Acute Discharge Plan Disposition Patient Disposition: HOME Condition: Good Discharge Details Chief Complaint: GenMedical Clinical Impression: Amnesia Reason For Visit: AMNESIA Admit Date/Time: 02/25/20 21:51 Admit Provider: Devin Jeffrey Attending Provider: Devin Jeffrey Primary Care Provider: Terence Morton ED Provider: Brian Courtney Hospital Course Hospital Course: Mr Vega is a 69 year old male with PMHx of CLL s/p stem cell transplant, as well as hypertension, CKD III (baseline Cr 1.6-1.8), and underlying mild congnitive impairement who was observed on [facility] hospitalist service from 02/25/2020 - 02/26/2020 after having an episode of confusion/forgetfulness and repetitive speech on top of his baseline word-finding issues, asking the same question over and over. His symptoms had mostly resolved by the time he was examined by the admitting provider. The patient's workup consisted of negative non-contrast CT of the head, showing atrophy and pronounced microvascular changes. 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 He did not have carotid disease on ultrasound or MRA. His echocardiogram result is still pending and should be followed up by PCP. His BP was quite labile today but will need to be followed up in an outpatient setting by PCP prior to initiating any antihypertensives. The patient was evaluated by Dr Dawkins of neurology in consultation, whose impression was that the patient had transient global amnesia. He is being discharged home today at his neurologic baseline with instructions to take asa 81 mg PO daily and to follow up with neurology in 4-6 weeks. Home Meds and New Rx's Prescriptions: New aspirin 81 mg Tablet,Chewable 81 mg PO DAILY Qty: 30 RF: 0 Discharge Instructions Instructions: Transient Global Amnesia (GEN) Additional Instructions: Return to the hospital with any fever, bleeding, chest pain, shortness of breath, or return/ new neurological deficits. Follow up with you PCP in 1-2 weeks and with neurology in 4-6 weeks. Stand Alone Forms: Nursing Discharge Form Referrals: Terence Morton MD [Primary Care Provider] - (please call to follow up ) Di Dawkins MD [ [facility] STAFF PHYSICIAN] - (Transient global amnesia - 4-6 weeks) Activity:: Activity as Tolerated Equipment/Supplies:: No Equipment Needed Diet:: As Tolerated Discharge Orders Discharge Orders: Discharge Order (Routine); Ordered 02/26/20 Ordered By: Chelsea Vega Discharge Data Discharge Date/Time-TO BE ENTERED AT DEPARTURE: 02/26/20 18:35 DS: Summary Status at Discharge Functional status at discharge: independent ambulation Overall status at discharge: patient is back to baseline Mental Status: mental status grossly normal Speech and Movement: speech and movement normal Mood: congruent mood Affect: normal affect Exam Const General: cooperative, healthy appearing, comfortable, no acute distress and well developed Nutritional Appearance: average body habitus Orientation: alert, awake and oriented x3 HENSD Head: normal to inspection, normocephalic and atraumatic Mouth: oral mucosae normal Resp Effort & Inspection: normal respiratory effort Auscultation: clear to auscultation bilaterally Cardio Rate: regular rate Rhythm: regular rhythm GI Inspection: normal to inspection Palpation: soft Auscultation: normal bowel sounds Skin General skin exam: no rashes or lesions noted Neuro General: patient alert, patient awake and patient oriented x3 Cranial Nerves: CN's II-XI intact bilaterally Cognition: normal cognition Speech: speech normal Gait: normal gait Motor: muscle tone normal throughout and strength 5/5 throughout Sensory Exam: no sensory deficits noted Extrem General: normal to inspection and full ROM (equal strength bilaterally) Psych Appearance: grossly normal Mental Status: mental status grossly normal Speech and Movement: speech and movement normal Mood: congruent mood Affect: normal affect Attitude: cooperative Thought Process: normal Thought Content: normal Insight: insight good Judgment: judgment good DS: Data Vitals/I&O Vitals and I&O: Vital Signs Temperature 36.6 C 02/26/20 07:51 Temperature Source Tympanic 02/26/20 07:51 Pulse 69 02/26/20 07:51 Pulse Rhythm Regular 02/26/20 03:49 Respiratory Rate 16 02/26/20 07:51 Respiratory Effort Non-Labored 02/26/20 03:49 Respiratory Depth Normal 02/26/20 03:49 Respiratory Pattern Normal 02/26/20 03:49 Blood Pressure 177/85 H 02/26/20 07:51 Blood Pressure Position Sitting 02/25/20 19:49 Pulse Oximetry 97 02/26/20 07:51 Oxygen Delivery Method Room Air 02/26/20 07:51 Oxygen Flow Rate 0 02/26/20 07:51 Pain Level 0 02/26/20 07:51 Intake & Output 02/25/20 02/26/20 02/26/20 23:59 11:59 23:59 Intake Total 875 / 1835 960 / 1835 Balance 875 / 1835 960 / 1835 Weight 79.379 kg 82.9 kg Intake: IV 875 / 875 Oral 960 / 960 Other: Urine Appearance Clear Clear Comment Patient voiding independently in [place]li[place] during day. Data Completed and Pending Labs on day of discharge: Labs from last 24 hours 02/26/20 02/26/20 02/26/20 06:50 06:50 06:50 WBC RBC Hgb Hct MCV MCH MCHC RDW Plt Count MPV Immature Gran % Neutrophils % Lymphocytes % Monocytes % Eosinophils % Basophils % Absolute Neutrophils Absolute Lymphocytes Absolute Monocytes Absolute Eosinophils Absolute Basophils VBG pH VBG pCO2 VBG pO2 VBG HCO3 VBG Total CO2 VBG O2 Saturation VBG Base Excess Sodium Potassium Chloride Carbon Dioxide Anion Gap BUN Creatinine Estimated GFR/1.73 m2 Glucose Hemoglobin A1c Calcium Magnesium Total Bilirubin AST ALT Alkaline Phosphatase Ammonia Troponin I Total Protein Albumin Triglycerides Total Cholesterol LDL Cholesterol, Calc HDL Cholesterol TSH Urine Color Yellow Urine Clarity Clear Urine pH 5.5 Ur Specific Locke 1.020 Urine Protein Negative Urine Ketones Negative Urine Blood Negative Urine Nitrite Negative Urine Bilirubin Negative Urine Urobilinogen 0.2 Ur Leukocyte Esterase Negative Ur Random Creatinine 43.04 U Random Total Protein 7.1 Ur Creatinine mg/dL 43.92 Ur Microalbumin mg/L 5.4 Microalb/Creat Ratio 12.3 Urine Glucose Negative COVID-19 PCR Nasopharyn COVID-19 PCR Ref Test Perform Site 02/26/20 02/26/20 02/26/20 06:38 06:38 06:38 WBC RBC Hgb Hct MCV MCH MCHC RDW Plt Count MPV Immature Gran % Neutrophils % Lymphocytes % Monocytes % Eosinophils % Basophils % Absolute Neutrophils Absolute Lymphocytes Absolute Monocytes Absolute Eosinophils Absolute Basophils VBG pH VBG pCO2 VBG pO2 VBG HCO3 VBG Total CO2 VBG O2 Saturation VBG Base Excess Sodium 141 Potassium 3.9 Chloride 107 Carbon Dioxide 28.5 Anion Gap 5.5 BUN 35 H Creatinine 1.67 H Estimated GFR/1.73 m2 41.24 Glucose 98 D Hemoglobin A1c 5.3 Calcium 8.7 Magnesium Total Bilirubin AST ALT Alkaline Phosphatase Ammonia Troponin I Total Protein Albumin Triglycerides 65 Total Cholesterol 201 H LDL Cholesterol, Calc 127 H HDL Cholesterol 61 TSH Urine Color Urine Clarity Urine pH Ur Specific Locke Urine Protein Urine Ketones Urine Blood Urine Nitrite Urine Bilirubin Urine Urobilinogen Ur Leukocyte Esterase Ur Random Creatinine U Random Total Protein Ur Creatinine mg/dL Ur Microalbumin mg/L Microalb/Creat Ratio Urine Glucose COVID-19 PCR Nasopharyn COVID-19 PCR Ref Test Perform Site 02/25/20 02/25/20 02/25/20 23:40 22:10 22:10 WBC RBC Hgb Hct MCV MCH MCHC RDW Plt Count MPV Immature Gran % Neutrophils % Lymphocytes % Monocytes % Eosinophils % Basophils % Absolute Neutrophils Absolute Lymphocytes Absolute Monocytes Absolute Eosinophils Absolute Basophils VBG pH VBG pCO2 VBG pO2 VBG HCO3 VBG Total CO2 VBG O2 Saturation VBG Base Excess Sodium Potassium Chloride Carbon Dioxide Anion Gap BUN Creatinine Estimated GFR/1.73 m2 Glucose Hemoglobin A1c Calcium Magnesium Total Bilirubin AST ALT Alkaline Phosphatase Ammonia Troponin I < 0.05 Total Protein Albumin Triglycerides Total Cholesterol LDL Cholesterol, Calc HDL Cholesterol TSH Urine Color Cancelled Urine Clarity Cancelled Urine pH Cancelled Ur Specific Locke Cancelled Urine Protein Cancelled Urine Ketones Cancelled Urine Blood Cancelled Urine Nitrite Cancelled Urine Bilirubin Cancelled Urine Urobilinogen Cancelled Ur Leukocyte Esterase Cancelled Ur Random Creatinine U Random Total Protein Ur Creatinine mg/dL Ur Microalbumin mg/L Microalb/Creat Ratio Urine Glucose Cancelled COVID-19 PCR Pending Nasopharyn COVID-19 PCR Pending Ref Test Perform Site Pending 02/25/20 02/25/20 02/25/20 20:45 20:10 20:10 WBC 7.63 RBC 5.07 Hgb 15.6 Hct 46.0 MCV 90.7 MCH 30.8 MCHC 33.9 RDW 12.8 Plt Count 110 L MPV 9.7 Immature Gran % 0.1 Neutrophils % 56.2 Lymphocytes % 36.7 Monocytes % 5.2 Eosinophils % 1.4 Basophils % 0.4 Absolute Neutrophils 4.28 Absolute Lymphocytes 2.80 Absolute Monocytes 0.40 Absolute Eosinophils 0.11 Absolute Basophils 0.03 VBG pH 7.41 VBG pCO2 43 VBG pO2 46 H VBG HCO3 27 VBG Total CO2 24 VBG O2 Saturation 81 H VBG Base Excess 2.6 Sodium Potassium Chloride Carbon Dioxide Anion Gap BUN Creatinine Estimated GFR/1.73 m2 Glucose Hemoglobin A1c Calcium Magnesium Total Bilirubin AST ALT Alkaline Phosphatase Ammonia < 10 L Troponin I Total Protein Albumin Triglycerides Total Cholesterol LDL Cholesterol, Calc HDL Cholesterol TSH Urine Color Urine Clarity Urine pH Ur Specific Locke Urine Protein Urine Ketones Urine Blood Urine Nitrite Urine Bilirubin Urine Urobilinogen Ur Leukocyte Esterase Ur Random Creatinine U Random Total Protein Ur Creatinine mg/dL Ur Microalbumin mg/L Microalb/Creat Ratio Urine Glucose COVID-19 PCR Nasopharyn COVID-19 PCR Ref Test Perform Site 02/25/20 20:10 WBC RBC Hgb Hct MCV MCH MCHC RDW Plt Count MPV Immature Gran % Neutrophils % Lymphocytes % Monocytes % Eosinophils % Basophils % Absolute Neutrophils Absolute Lymphocytes Absolute Monocytes Absolute Eosinophils Absolute Basophils VBG pH VBG pCO2 VBG pO2 VBG HCO3 VBG Total CO2 VBG O2 Saturation VBG Base Excess Sodium 139 Potassium 3.7 Chloride 103 Carbon Dioxide 29.4 Anion Gap 6.6 BUN 41 H Creatinine 1.88 H Estimated GFR/1.73 m2 35.97 Glucose 160 H Hemoglobin A1c Calcium 8.8 Magnesium 1.8 Total Bilirubin 0.4 AST 37 ALT 49 Alkaline Phosphatase 91 Ammonia Troponin I < 0.05 Total Protein 6.4 Albumin 3.9 Triglycerides Total Cholesterol LDL Cholesterol, Calc HDL Cholesterol TSH 1.86 Urine Color Urine Clarity Urine pH Ur Specific Locke Urine Protein Urine Ketones Urine Blood Urine Nitrite Urine Bilirubin Urine Urobilinogen Ur Leukocyte Esterase Ur Random Creatinine U Random Total Protein Ur Creatinine mg/dL Ur Microalbumin mg/L Microalb/Creat Ratio Urine Glucose COVID-19 PCR Nasopharyn COVID-19 PCR Ref Test Perform Site [facility] Medical History (Updated 02/26/20 @ 20:39 by Di Dawkins MD) CKD (chronic kidney disease) (Acute) CLL (chronic lymphocytic leukemia) Depressive disorder (Resolved) Essential hypertension Essential hypertension (Resolved 01/09/18) Mild cognitive impairment (Chronic) Non-Hodgkin lymphoma Surgical History (Updated 02/26/20 @ 01:15 by Devin Jeffrey) EGD - MAC (06/05/18) History of stem cell transplant (Acute) Laparotomy After perforation from ERCP Ulnar Nerve Transposition Family History Mother No problems noted. Father , 74 AML (acute myeloblastic leukemia) Sister No problems noted. Brother Hyperlipidemia Maternal Grandfather Stroke Paternal Grandfather , 55 Lymphoma Maternal Grandmother , 90 Essential hypertension Paternal Grandmother , 90 No problems noted. Brother No problems noted. Brother No problems noted. Son No problems noted. Son No problems noted. 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 Pets and animals: Yes Pets and animals: cat(s) Current gender identity: decline to answer What is your relationship status?: How often do you talk on the phone with friends or family?: once per week How often do you get together with friends or relatives?: three or more times per week How often do you attend rastafarian or baptism services?: 4 or more times per year Do you belong to any clubs or organized social groups?: yes Panel score (0-1 are the most socially isolated patients): 4 What type of physical activity do you participate in: walking and other Duration: 60-90 minutes/day Frequency: 5-6 times per week Erica/Anabaptism: Roman Catholic Agree to transfusion: No Seatbelt use: always Helmet use: Yes Helmet use: always Drive intox or ride w/intox 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
[2020-02-26 15:32] VITALS: BP 144/91; PULSE 60; RESP 17; TEMP 36.6; O2SAT 97
--- NOTE | 2020-02-26 16:18 | CHAPLAIN ---
Win was sitting up in his chair when I visited. He was friendly and easily engaged in a conversation. He said he was waiting to find out what they're going to do with me. He lives in [place] with his . He talked about her not being able to visit but said he believes the precautions in place and altered procedures do to COVID-19 will all sugar off eventually.
--- NOTE | 2020-02-26 17:01 | W.PM.DS.N ---
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 (8) Mild cognitive impairment: Status: Chronic Discharge Plan Disposition Patient Disposition: HOME Condition: Good Discharge Details Chief Complaint: GenMedical Clinical Impression: Amnesia Reason For Visit: AMNESIA Admit Date/Time: 02/25/20 21:51 Admit Provider: Devin Jeffrey Attending Provider: Devin Jeffrey Primary Care Provider: Terence Morton ED Provider: Brian Courtney Hospital Course Hospital Course: Mr Vega is a 69 year old male with PMHx of CLL s/p stem cell transplant, as well as hypertension, CKD III (baseline Cr 1.6-1.8), and underlying mild congnitive impairement who was observed on [facility] hospitalist service from 02/25/2020 - 02/26/2020 after having an episode of confusion/forgetfulness and repetitive speech on top of his baseline word-finding issues, asking the same question over and over. His symptoms had mostly resolved by the time he was examined by the admitting provider. The patient's workup consisted of negative non-contrast CT of the head, showing atrophy and pronounced microvascular changes. 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 He did not have carotid disease on ultrasound or MRA. His echocardiogram result is still pending and should be followed up by PCP. His BP was quite labile today but will need to be followed up in an outpatient setting by PCP prior to initiating any antihypertensives. The patient was evaluated by Dr Dawkins of neurology in consultation, whose impression was that the patient had transient global amnesia. He is being discharged home today at his neurologic baseline with instructions to take asa 81 mg PO daily and to follow up with neurology in 4-6 weeks. Home Meds and New Rx's Prescriptions: New aspirin 81 mg Tablet,Chewable 81 mg PO DAILY Qty: 30 RF: 0 Discharge Instructions Instructions: Transient Global Amnesia (GEN) Additional Instructions: Return to the hospital with any fever, bleeding, chest pain, shortness of breath, or return/ new neurological deficits. Follow up with you PCP in 1-2 weeks and with neurology in 4-6 weeks. Referrals: Terence Morton MD [Primary Care Provider] - Di Dawkins MD [ [facility] STAFF PHYSICIAN] - (Transient global amnesia - 4-6 weeks) Activity:: Activity as Tolerated Equipment/Supplies:: No Equipment Needed Diet:: As Tolerated Discharge Orders Discharge Orders: Discharge Order (Routine); Ordered 02/26/20 Ordered By: Chelsea Vega DS: Data Vitals/I&O Vitals and I&O: Vital Signs Temperature 36.6 C 02/26/20 15:32 Temperature Source Tympanic 02/26/20 15:32 Pulse 60 02/26/20 15:32 Pulse Rhythm Regular 02/26/20 15:41 Respiratory Rate 17 02/26/20 15:32 Respiratory Effort Non-Labored 02/26/20 15:41 Respiratory Depth Normal 02/26/20 15:41 Respiratory Pattern Normal 02/26/20 15:41 Blood Pressure 144/91 H 02/26/20 15:32 Blood Pressure Position Sitting 02/25/20 19:49 Pulse Oximetry 97 02/26/20 15:32 Oxygen Delivery Method Room Air 02/26/20 15:32 Oxygen Flow Rate 0 02/26/20 15:32 Pain Level 0 02/26/20 12:04 Intake & Output 02/25/20 02/26/20 02/26/20 23:59 11:59 23:59 Intake Total 1457.917 / 2417.917 960 / 2417.917 Balance 1457.917 / 2417.917 960 / 2417.917 Weight 79.379 kg 82.9 kg Intake: IV 1457.917 / 1457.917 Oral 960 / 960 Other: Urine Appearance Clear Clear Clear Comment Patient voiding independently in [place] during day. Data Completed and Pending Completed studies during hospitalization [Text1]: Brain MRI: Prominent diffuse cerebral atrophy and white matter signal changes consistent with microvascular ischemic change, probable old right frontal infarction. Brain MRA: Negative MR angiography of the brain. Neck MRA: Technically limited study, no gross vascular lesion identified. Right dominant vertebral circulation. US carotid: No evidence of a hemodynamically significant carotid stenosis. CXR: Normal chest Pending studies at discharge: Echo results Labs on day of discharge: Labs from last 24 hours 02/26/20 02/26/20 02/26/20 06:50 06:50 06:50 WBC RBC Hgb Hct MCV MCH MCHC RDW Plt Count MPV Immature Gran % Neutrophils % Lymphocytes % Monocytes % Eosinophils % Basophils % Absolute Neutrophils Absolute Lymphocytes Absolute Monocytes Absolute Eosinophils Absolute Basophils VBG pH VBG pCO2 VBG pO2 VBG HCO3 VBG Total CO2 VBG O2 Saturation VBG Base Excess Sodium Potassium Chloride Carbon Dioxide Anion Gap BUN Creatinine Estimated GFR/1.73 m2 Glucose Hemoglobin A1c Calcium Magnesium Total Bilirubin AST ALT Alkaline Phosphatase Ammonia Troponin I Total Protein Albumin Triglycerides Total Cholesterol LDL Cholesterol, Calc HDL Cholesterol TSH Urine Color Yellow Urine Clarity Clear Urine pH 5.5 Ur Specific [place] 1.020 Urine Protein Negative Urine Ketones Negative Urine Blood Negative Urine Nitrite Negative Urine Bilirubin Negative Urine Urobilinogen 0.2 Ur Leukocyte Esterase Negative Ur Random Creatinine 43.04 U Random Total Protein 7.1 Ur Creatinine mg/dL 43.92 Ur Microalbumin mg/L 5.4 Microalb/Creat Ratio 12.3 Urine Glucose Negative COVID-19 PCR Nasopharyn COVID-19 PCR Ref Test Perform Site 02/26/20 02/26/20 02/26/20 06:38 06:38 06:38 WBC RBC Hgb Hct MCV MCH MCHC RDW Plt Count MPV Immature Gran % Neutrophils % Lymphocytes % Monocytes % Eosinophils % Basophils % Absolute Neutrophils Absolute Lymphocytes Absolute Monocytes Absolute Eosinophils Absolute Basophils VBG pH VBG pCO2 VBG pO2 VBG HCO3 VBG Total CO2 VBG O2 Saturation VBG Base Excess Sodium 141 Potassium 3.9 Chloride 107 Carbon Dioxide 28.5 Anion Gap 5.5 BUN 35 H Creatinine 1.67 H Estimated GFR/1.73 m2 41.24 Glucose 98 D Hemoglobin A1c 5.3 Calcium 8.7 Magnesium Total Bilirubin AST ALT Alkaline Phosphatase Ammonia Troponin I Total Protein Albumin Triglycerides 65 Total Cholesterol 201 H LDL Cholesterol, Calc 127 H HDL Cholesterol 61 TSH Urine Color Urine Clarity Urine pH Ur Specific [place] Urine Protein Urine Ketones Urine Blood Urine Nitrite Urine Bilirubin Urine Urobilinogen Ur Leukocyte Esterase Ur Random Creatinine U Random Total Protein Ur Creatinine mg/dL Ur Microalbumin mg/L Microalb/Creat Ratio Urine Glucose COVID-19 PCR Nasopharyn COVID-19 PCR Ref Test Perform Site 02/25/20 02/25/20 02/25/20 23:40 22:10 22:10 WBC RBC Hgb Hct MCV MCH MCHC RDW Plt Count MPV Immature Gran % Neutrophils % Lymphocytes % Monocytes % Eosinophils % Basophils % Absolute Neutrophils Absolute Lymphocytes Absolute Monocytes Absolute Eosinophils Absolute Basophils VBG pH VBG pCO2 VBG pO2 VBG HCO3 VBG Total CO2 VBG O2 Saturation VBG Base Excess Sodium Potassium Chloride Carbon Dioxide Anion Gap BUN Creatinine Estimated GFR/1.73 m2 Glucose Hemoglobin A1c Calcium Magnesium Total Bilirubin AST ALT Alkaline Phosphatase Ammonia Troponin I < 0.05 Total Protein Albumin Triglycerides Total Cholesterol LDL Cholesterol, Calc HDL Cholesterol TSH Urine Color Cancelled Urine Clarity Cancelled Urine pH Cancelled Ur Specific [place] Cancelled Urine Protein Cancelled Urine Ketones Cancelled Urine Blood Cancelled Urine Nitrite Cancelled Urine Bilirubin Cancelled Urine Urobilinogen Cancelled Ur Leukocyte Esterase Cancelled Ur Random Creatinine U Random Total Protein Ur Creatinine mg/dL Ur Microalbumin mg/L Microalb/Creat Ratio Urine Glucose Cancelled COVID-19 PCR Pending Nasopharyn COVID-19 PCR Pending Ref Test Perform Site Pending 02/25/20 02/25/20 02/25/20 20:45 20:10 20:10 WBC 7.63 RBC 5.07 Hgb 15.6 Hct 46.0 MCV 90.7 MCH 30.8 MCHC 33.9 RDW 12.8 Plt Count 110 L MPV 9.7 Immature Gran % 0.1 Neutrophils % 56.2 Lymphocytes % 36.7 Monocytes % 5.2 Eosinophils % 1.4 Basophils % 0.4 Absolute Neutrophils 4.28 Absolute Lymphocytes 2.80 Absolute Monocytes 0.40 Absolute Eosinophils 0.11 Absolute Basophils 0.03 VBG pH 7.41 VBG pCO2 43 VBG pO2 46 H VBG HCO3 27 VBG Total CO2 24 VBG O2 Saturation 81 H VBG Base Excess 2.6 Sodium Potassium Chloride Carbon Dioxide Anion Gap BUN Creatinine Estimated GFR/1.73 m2 Glucose Hemoglobin A1c Calcium Magnesium Total Bilirubin AST ALT Alkaline Phosphatase Ammonia < 10 L Troponin I Total Protein Albumin Triglycerides Total Cholesterol LDL Cholesterol, Calc HDL Cholesterol TSH Urine Color Urine Clarity Urine pH Ur Specific [place] Urine Protein Urine Ketones Urine Blood Urine Nitrite Urine Bilirubin Urine Urobilinogen Ur Leukocyte Esterase Ur Random Creatinine U Random Total Protein Ur Creatinine mg/dL Ur Microalbumin mg/L Microalb/Creat Ratio Urine Glucose COVID-19 PCR Nasopharyn COVID-19 PCR Ref Test Perform Site 02/25/20 20:10 WBC RBC Hgb Hct MCV MCH MCHC RDW Plt Count MPV Immature Gran % Neutrophils % Lymphocytes % Monocytes % Eosinophils % Basophils % Absolute Neutrophils Absolute Lymphocytes Absolute Monocytes Absolute Eosinophils Absolute Basophils VBG pH VBG pCO2 VBG pO2 VBG HCO3 VBG Total CO2 VBG O2 Saturation VBG Base Excess Sodium 139 Potassium 3.7 Chloride 103 Carbon Dioxide 29.4 Anion Gap 6.6 BUN 41 H Creatinine 1.88 H Estimated GFR/1.73 m2 35.97 Glucose 160 H Hemoglobin A1c Calcium 8.8 Magnesium 1.8 Total Bilirubin 0.4 AST 37 ALT 49 Alkaline Phosphatase 91 Ammonia Troponin I < 0.05 Total Protein 6.4 Albumin 3.9 Triglycerides Total Cholesterol LDL Cholesterol, Calc HDL Cholesterol TSH 1.86 Urine Color Urine Clarity Urine pH Ur Specific [place] Urine Protein Urine Ketones Urine Blood Urine Nitrite Urine Bilirubin Urine Urobilinogen Ur Leukocyte Esterase Ur Random Creatinine U Random Total Protein Ur Creatinine mg/dL Ur Microalbumin mg/L Microalb/Creat Ratio Urine Glucose COVID-19 PCR Nasopharyn COVID-19 PCR Ref Test Perform Site [facility] Medical History (Updated 02/26/20 @ 17:23 by Chelsea Vega MD) CKD (chronic kidney disease) (Acute) CLL (chronic lymphocytic leukemia) Depressive disorder (Resolved) Essential hypertension Essential hypertension (Resolved 01/09/18) Mild cognitive impairment (Chronic) Non-Hodgkin lymphoma Surgical History (Updated 02/26/20 @ 01:15 by Devin Jeffrey) EGD - MAC (06/05/18) History of stem cell transplant (Acute) Laparotomy After perforation from ERCP Ulnar Nerve Transposition Family History Mother No problems noted. Father , 74 AML (acute myeloblastic leukemia) Sister No problems noted. Brother Hyperlipidemia Maternal Grandfather Stroke Paternal Grandfather , 55 Lymphoma Maternal Grandmother , 90 Essential hypertension Paternal Grandmother , 90 No problems noted. Brother No problems noted. Brother No problems noted. Son No problems noted. Son No problems noted. Social History Smoking/Tobacco Use Status: Former Tobacco Use Quit Date: 10/16/70 Second Hand Exposure: Yes Alcohol Intake: former Drug use: Never Substance use type: former substance user Caregiver/Support person: No Household members: spouse and other Housing: house Communication Needs: None Do you need help understanding health information?: Rarely Pets and animals: Yes Pets and animals: cat(s) Current gender identity: decline to answer What is your relationship status?: How often do you talk on the phone with friends or family?: once per week How often do you get together with friends or relatives?: three or more times per week How often do you attend anabaptist or christian services?: 4 or more times per year Do you belong to any clubs or organized social groups?: yes Panel score (0-1 are the most socially isolated patients): 4 What type of physical activity do you participate in: walking and other Duration: 60-90 minutes/day Frequency: 5-6 times per week Erica/Spiritism: Worship Agree to transfusion: No Seatbelt use: always Helmet use: Yes Helmet use: always Drive intox or ride w/intox lead driver: No Do you feel safe at home: Yes Do you feel safe in your relationship?: Yes
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
[2020-02-26 21:11] LABS: COVID-19 RT-PCR UVMMC Result Negative (Negative)
== END 2020-02-26 18:35 | disposition home or self-care (01) ==
LOC: ER 22:44 → MS 23:18
PROVIDERS: Physician Assistant; Admitting Provider Internal Medicine; Emergency Provider Student in an Organized Health Care Education/Training Program; PCP Family Medicine; Visit Provider Internal Medicine
DX: G45.4 Transient global amnesia (principal); N17.9 Acute kidney failure, unspecified; Z86.73 Personal history of transient ischemic attack (TIA), and cerebral infarction without residual deficits; I12.9 Hypertensive chronic kidney disease with stage 1 through stage 4 chronic kidney disease, or unspecified chronic kidney disease; N18.3 Chronic kidney disease, stage 3 (moderate); E86.0 Dehydration; R73.9 Hyperglycemia, unspecified; C91.11 Chronic lymphocytic leukemia of B-cell type in remission; Z94.84 Stem cells transplant status; G31.84 Mild cognitive impairment of uncertain or unknown etiology
CPT/HCPCS: 36415; 36416; 70544; 70547; 80048; 80053; 80061; 82805; 82962; 93005; 96360; 96361; 99215; 99217; 99220; 99223; 99285; J1650; U0003; 70450; 70551; 71046; 81003; 82043; 82140; 82565; 82570; 83036; 83735; 84156; 84443; 84484; 85025; 93010; 93306; 93880; G0378

== ENCOUNTER → 2020-02-26 10:58 | Outpatient (BNVA) | payer MEDICARE, BC, SELFPAY | PROVIDERS: PCP Family Medicine; Referring Provider Family Medicine; Visit Provider Psychiatry & Neurology Neurology | DX: R69 Illness, unspecified (principal) ==

== ENCOUNTER → 2020-04-08 09:49 | Outpatient (BNVA) | payer MEDICARE, BC, SELFPAY | PROVIDERS: PCP Family Medicine; Referring Provider Family Medicine; Visit Provider Psychiatry & Neurology Neurology | DX: G45.4 Transient global amnesia (principal); G93.49 Other encephalopathy; G31.84 Mild cognitive impairment of uncertain or unknown etiology; I67.9 Cerebrovascular disease, unspecified; I12.9 Hypertensive chronic kidney disease with stage 1 through stage 4 chronic kidney disease, or unspecified chronic kidney disease; N18.9 Chronic kidney disease, unspecified | CPT/HCPCS: 99214 ==

== ENCOUNTER 2020-08-20 01:03 | Outpatient (CLI) | payer MEDICARE, BC, SELFPAY ==
[2020-08-20 10:02] LABS: Abs Immature Grans 0.02 10^3/uL (0.0-0.06); Absolute Basophil Count 0.04 10^3/uL (0.0-0.2); Absolute Eosinophil Count 0.12 10^3/uL (0.0-0.7); Absolute Lymphocyte Count 1.96 10^3/uL (1.2-3.4); Absolute Monocyte Count 0.44 10^3/uL (0.1-0.8); Absolute Neutrophil Count 4.18 10^3/uL (1.2-6.7); Basophils % 0.6; Eosinophils % 1.8; HCT 48.7 % (40.0-50.0); HGB 16.1 g/dL (13.5-17.5); Immature Grans % 0.3; MCH 30.7 pg (27.0-33.0); MCHC 33.1 % (32.0-36.0); MCV 92.8 fL (80-95); MPV 10.1 fL (8.0-11.0); Monocytes % 6.5; Neutrophils % 61.8; Nucleated RBC 0 %; RBC 5.25 10^6/uL (4.36-5.78); RDW-SD 41.1 fL; WBC 6.76 10^3/uL (4.4-10.8)
[2020-08-20 10:08] LABS: ALT 29 U/L (16-63); AST 23 U/L (15-37); Albumin 3.6 g/dL (3.4-5.0); Alkaline Phosphatase 93 U/L (46-116); Anion Gap 6.4 mmol/L (3-11); BUN 35 mg/dL (7-18); Bilirubin, Total 0.5 mg/dL (0.2-1.0); CO2 30.6 mmol/L (21.0-32.0); CREATININE 1.81 mg/dL (0.70-1.30); Calcium 8.8 mg/dL (8.5-10.1); Chloride 104 mmol/L (98-107); Estimated GFR 37.47 (mL/min/1.73m2); Glucose 95 mg/dL (74-106); LDH 102 U/L (85-227); Potassium 4.5 mmol/L (3.5-5.1); Sodium 141 mmol/L (136-145); Total Protein 6.4 g/dL (6.4-8.2)
[2020-08-20 10:15] LABS: Platelet Count 127 10^3/uL (130-400)
== END 2020-08-20 01:23 ==
PROVIDERS: PCP Family Medicine; Visit Provider Internal Medicine Hematology & Oncology
DX: C83.30 Diffuse large B-cell lymphoma, unspecified site (principal)
CPT/HCPCS: 36415; 80053; 83615; 85025

== ENCOUNTER 2020-11-03 12:05 | Outpatient (CLI) | payer MEDICARE, BC, SELFPAY ==
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
--- NOTE | 2020-11-03 08:30 | DI.US_ITS ---
EXAM: US LOWER EXTREMITY VENOUS LT CLINICAL HISTORY: R/O blood clot, left leg swelling, M79.89 TECHNIQUE: Left lower extremity venous ultrasound performed using grayscale, color-flow, and spectra l Doppler analysis. COMPARISON: No exams were available for comparison FINDINGS: The left common femoral vein demonstrate normal compressibility, augmentation, and color Doppler. Th ere is hypoechoic occlusive thrombus in the posterior tibialis veins extending proximally to involve the popliteal and the femoral veins. It measures 53 cm in length. The saphenofemoral junction is un remarkable. There is no evidence of a Marino cyst. The soft tissues are unremarkable. IMPRESSION: Examination is positive for left lower extremity DVT. DATA REPOSITORY:
== END 2020-11-03 12:25 ==
PROVIDERS: PCP Family Medicine; Visit Provider Nurse Practitioner Family
DX: M79.89 Other specified soft tissue disorders (principal); I82.442 Acute embolism and thrombosis of left tibial vein; R93.6 Abnormal findings on diagnostic imaging of limbs
CPT/HCPCS: 73590; 73610; 93971

== ENCOUNTER 2020-11-03 13:04 | Emergency (ER) | payer MEDICARE, BC, SELFPAY ==
[2020-11-03] VITALS (23 sets, daily range): BP systolic 111–174; BP diastolic 79–114; PULSE 57–79; RESP 16; TEMP 36.3–36.5; O2SAT 97–99
--- NOTE | 2020-11-03 13:13 | W.ED.GENAD ---
Discharge Plan Disposition Patient Disposition: [facility] INPATIENT Condition: Stable Discharge Details Clinical Impression: Brain mass, Neoplasm causing mass effect on adjacent structures, Deep vein thrombosis (DVT) of left lower extremity, History of chronic lymphocytic leukemia, History of non-Hodgkin's lymphoma Primary Care Provider: [facility] ED Provider: Nadine Falcon Home Meds and New Rx's Prescriptions: No Action lisinopril 5 mg tablet 5 mg PO DAILY Qty: 90 RF: 3 cephalexin [Keflex] 500 mg capsule 500 mg PO BID Qty: 10 RF: 0 aspirin 81 mg Tablet,Chewable 81 mg PO DAILY Qty: 30 RF: 0 Medical Decision Making 70-year-old male with a history of CLL and stem cell transplant, non-Hodgkin's lymphoma, CVA, CKD, hypertension, and exploratory laparotomy who presents for ER evaluation after noted to have a positive blood clot on outpatient lower extremity ultrasound. Review of records note that patient was seen at the PCP office yesterday for increasing confusion, memory loss and difficulty with coordination that has been ongoing for the past several months, worse over the past few weeks and even worse over the past few days. He was started on antibiotics for possible UTI. He was also referred for an outpatient left lower extremity ultrasound and left ankle and tib-fib x-rays for left leg pain and swelling noted after a fall while skiing last week. Outpatient left lower extremity ultrasound today positive for DVT. His left ankle and tib-fib x-rays also noted a questionable chip fracture left medial malleolus. He has notable left calf swelling but no ankle pain or tenderness and has no pain with weightbearing, so doubt fracture. X-rays reviewed with orthopedics and do not feel this is consistent with a fracture. Discussed at length with patient and in room, that there appears to be more to patient's issues at this time, and we will pursue further work-up. He has an outpatient MRI brain scheduled for , will cancel this and order an MRI/MRA brain for today. We will also check screening labs, urinalysis and give IVF Labs reviewed. Platelet 127, has been well in the past. Troponin negative. Urinalysis negative. Brain MRI with and without recommended per radiology due to bilateral enhancing infiltrative lesion consistent with possibly glioblastoma or lymphoma. There is 5 to 6 mm of shift left to the midline. CT head recommended which was negative for hemorrhage Call placed to [facility] neurosurgery to review images and plan for transfer. Results discussed with patient and in room. Patient is oriented x2 but not time which states has been his baseline for the past month. Case discussed with [facility] neurosurgery who accepts patient for transfer. Accepting physician Dr. Chan. Recommends 1 g of Keppra. Does not recommend steroids at this time. Recommends holding any anticoagulation for his left leg DVT at this time. Results and plan discussed with patient and and they are agreeable with plan. Medical Records Medical records reviewed: Yes I reviewed the patient's medical records. Imaging Data Radiologic Study: Radiologist's impression: MR BRAIN WO/W and CT head without CLINICAL HISTORY: confusion, memory loss, balance problem, r/o cva TECHNIQUE: Multiplanar multisequence MRI of the brain was performed. CONTRAST MATERIAL: IV Contrast: 8 ML of Dotarem contrast administered. COMPARISON: MR MR BRAIN WO from 02/26/2020 FINDINGS: The noncontrast CT scan shows diffuse decreased attenuation involving the white matter of both cerebral hemispheres right greater than left. There is a face mint of the sulci of all lobes of the right cerebral hemisphere and predominantly the left parietal and occipital sulci. There is compression of the right lateral ventricle. There is 5-6 mm leftward shift of the midline. No intracranial hemorrhage is present. The basilar cisterns are patent. The calvarium is intact. The visualized paranasal sinuses and mastoid air cells are clear. On the noncontrast MRI examination, hyperintense signal is seen on the T2 weighted images in the white matter corresponding to the hypodense areas on the CT scan. Similar findings of sulcal effacement and midline shift are noted. There are areas of restricted diffusion noted in the right frontal and parietal lobe, the splenium of the corpus callosum and the left occipital lobe. These areas correspond to subsequent areas of enhancement following gadolinium administration. The visualized paranasal sinuses are clear. There is a normal flow void in the [id number]. The pituitary gland is grossly unremarkable. IMPRESSION: Intracranial enhancing lesions involving the right frontal, right parietal, corpus callosum and left occipital lobe as described above. Extensive white matter edema with mass effect on the adjacent ventricles and sulci and is 6 mm shift of the midline to the left. Diagnostic considerations include CASE SUPERVISOR lymphoma, glial tumor including glioblastoma, infection, metastatic disease or PML. MRI:MR angio brain wo CLINICAL HISTORY: confusion, memory loss, balance problem. TECHNIQUE: Multiplanar multisequence MRA of the brain was performed. COMPARISON: Priors available for comparison. FINDINGS: Carotid Arteries: No aneurysm, occlusion or significant stenosis. Anterior Cerebral Arteries: Right: No aneurysm, occlusion or significant stenosis. Left: No aneurysm, occlusion or significant stenosis. Middle Cerebral Arteries: Right: No aneurysm, occlusion or significant stenosis. Left: No aneurysm, occlusion or significant stenosis. Posterior Cerebral Arteries: Right: No aneurysm, occlusion or significant stenosis. Left: No aneurysm, occlusion or significant stenosis. Vertebral Arteries: Right: No aneurysm, occlusion or significant stenosis. Left: No aneurysm, occlusion or significant stenosis. Basilar Artery: No aneurysm, occlusion or significant stenosis. IMPRESSION: Normal MRA examination of the [place] of [place]. XR CHEST 2V PA LATERAL CLINICAL HISTORY: confusion, fall, r/o acute disease TECHNIQUE: 2D digital imaging was performed. COMPARISON: CR,XR XR CHEST 2V PA LATERAL from 02/25/2020 FINDINGS: MEDIASTINUM: Normal. HEART: Normal. PULMONARY VASCULATURE: Normal. LUNGS: Clear. PLEURAL SPACE: No pleural effusion or pneumothorax. BONE:Within normal limits for the patient's age. OTHER FINDINGS:Normal. IMPRESSION: No acute pulmonary findings. Lab Data Lab results reviewed: Yes I reviewed the patient's lab results. Labs: Laboratory Tests Range/Units 11/03/20 11/03/20 11/03/20 13:30 13:30 13:30 WBC (4.4-10.8) 10^3/uL 6.94 RBC (4.36-5.78) 10^6/uL 5.22 Hgb (13.5-17.5) g/dL 15.7 Hct (40.0-50.0) % 47.5 MCV (80-95) fL 91.0 MCH (27.0-33.0) pg 30.1 MCHC (32.0-36.0) % 33.1 RDW (11.8-14.1) % 11.9 Plt Count (130-400) 10^3/uL 127 L MPV (8.0-11.0) fL 9.4 Immature Gran % 0.3 Neutrophils % 69.8 Lymphocytes % 21.2 Monocytes % 7.3 Eosinophils % 1.0 Basophils % 0.4 Nucleated RBC % % 0 Absolute Neutrophils (1.2-6.7) 10^3/uL 4.84 Absolute Lymphocytes (1.2-3.4) 10^3/uL 1.47 Absolute Monocytes (0.1-0.8) 10^3/uL 0.51 Absolute Eosinophils (0.0-0.7) 10^3/uL 0.07 Absolute Basophils (0.0-0.2) 10^3/uL 0.03 PT (9.3-11.0) sec 10.9 INR (0.9-1.1) 1.1 APTT (21.0-27.5) sec 23.4 Sodium (136-145) mmol/L 138 Potassium (3.5-5.1) mmol/L 3.7 Chloride (98-107) mmol/L 103 Carbon Dioxide (21.0-32.0) mmol/L 28.9 Anion Gap (3-11) mmol/L 6.1 BUN (7-18) mg/dL 27 H Creatinine (0.70-1.30) mg/dL 1.86 H Estimated GFR/1.73 m2 (mL/min/1.73m2) 36.31 Glucose (74-106) mg/dL 93 Calcium (8.5-10.1) mg/dL 9.2 Magnesium (1.8-2.4) mg/dL 1.7 L Total Bilirubin (0.2-1.0) mg/dL 0.7 AST (15-37) U/L 25 ALT (16-63) U/L 32 Alkaline Phosphatase (46-116) U/L 101 Troponin I (<0.06) ng/mL < 0.05 Total Protein (6.4-8.2) g/dL 6.6 Albumin (3.4-5.0) g/dL 3.8 Urine Color (Yellow) Urine Clarity (Clear) Urine pH (5-8) Ur Specific [place] (1.005-1.025) Urine Protein (Negative) mg/dL Urine Ketones (Negative) mg/dL Urine Blood (Negative) Urine Nitrite (Negative) Urine Bilirubin (Negative) Urine Urobilinogen (Up TO 0.2) EU/dL Ur Leukocyte Esterase (Negative) Urine Glucose (Negative) mg/dL Range/Units 11/03/20 15:00 WBC (4.4-10.8) 10^3/uL RBC (4.36-5.78) 10^6/uL Hgb (13.5-17.5) g/dL Hct (40.0-50.0) % MCV (80-95) fL MCH (27.0-33.0) pg MCHC (32.0-36.0) % RDW (11.8-14.1) % Plt Count (130-400) 10^3/uL MPV (8.0-11.0) fL Immature Gran % Neutrophils % Lymphocytes % Monocytes % Eosinophils % Basophils % Nucleated RBC % % Absolute Neutrophils (1.2-6.7) 10^3/uL Absolute Lymphocytes (1.2-3.4) 10^3/uL Absolute Monocytes (0.1-0.8) 10^3/uL Absolute Eosinophils (0.0-0.7) 10^3/uL Absolute Basophils (0.0-0.2) 10^3/uL PT (9.3-11.0) sec INR (0.9-1.1) APTT (21.0-27.5) sec Sodium (136-145) mmol/L Potassium (3.5-5.1) mmol/L Chloride (98-107) mmol/L Carbon Dioxide (21.0-32.0) mmol/L Anion Gap (3-11) mmol/L BUN (7-18) mg/dL Creatinine (0.70-1.30) mg/dL Estimated GFR/1.73 m2 (mL/min/1.73m2) Glucose (74-106) mg/dL Calcium (8.5-10.1) mg/dL Magnesium (1.8-2.4) mg/dL Total Bilirubin (0.2-1.0) mg/dL AST (15-37) U/L ALT (16-63) U/L Alkaline Phosphatase (46-116) U/L Troponin I (<0.06) ng/mL Total Protein (6.4-8.2) g/dL Albumin (3.4-5.0) g/dL Urine Color (Yellow) Yellow Urine Clarity (Clear) Clear Urine pH (5-8) 5.5 Ur Specific [place] (1.005-1.025) 1.010 Urine Protein (Negative) mg/dL Negative Urine Ketones (Negative) mg/dL Negative Urine Blood (Negative) Negative Urine Nitrite (Negative) Negative Urine Bilirubin (Negative) Negative Urine Urobilinogen (Up TO 0.2) EU/dL 0.2 Ur Leukocyte Esterase (Negative) Negative Urine Glucose (Negative) mg/dL Negative ECG Data Attestation: I personally reviewed and interpreted this ECG (s) as follows: Interpretation: Rate of 64, sinus, no acute ST elevation or depression. OK 139. QRS 93. QTc 435. HPI General Mode of arrival: ambulatory. Date/Time Provider Initiated Documentation: 11/03/20 13:05. Limitations to Documentation: no limitations. Information obtained by: patient. HPI Narrative: Patient is a 70-year-old male with a history of CLL, CVA, CKD, non-Hodgkin's lymphoma, stem cell transplant, exploratory laparotomy for small intestine perforation presents from radiology after noted to have a left lower extremity DVT on outpatient ultrasound. Review of records note that patient was seen at the primary care doctor's office yesterday for increasing confusion, difficulty with ambulation and coordination and memory loss over the last few weeks, worse over the past few days and also complained of left leg pain and swelling after a fall while skiing 1 week ago. Patient was referred by the PCP office for outpatient left leg ultrasound, left ankle and tib-fib x-rays which were done today and an MRI brain which is scheduled for . Radiology in the PCP office called to state that a left lower extremity DVT was found on ultrasound today. Review of the ankle and tib-fib x-rays noted that patient also has a questionable medial malleolus chip fracture. Patient states he has been able to ambulate on his leg with mainly pain in his calf but denies any ankle or foot pain. Patient states he was skiing by himself several days ago when he fell. He removed his skis and was able to walk. He states he is unsure if he hit his head but denies any headache, dizziness, nausea, vomiting, neck or back pain, arm pain or injuries, or right leg pain or injury. He also denies any chest pain, shortness of breath, abdominal pain or urinary symptoms. states that patient's confusion and difficulty with coordination has been noted and the fact that patient has been making coffee without putting water in it, or washing his hands and leaving the faucet on. Patient states he does not recall these activities. also states that patient has been having difficulty tying his shoes or buckling his seatbelt. Of note, patient was admitted here in the spring 2019 for confusion and diagnosed with transient global amnesia. She does have an appointment next week with Dr. Dawkins for this ongoing confusion. states that after his transient global amnesia last year he had completely gone back to baseline until the past several weeks. He also denies any fever or chills. states that he has not been eating much for the past several days. Related Data Home Medications Medication Instructions Recorded Confirmed aspirin 81 mg PO DAILY #30 tab 02/26/20 11/03/20 cephalexin 500 mg capsule 500 mg PO BID #10 cap 11/02/20 11/03/20 lisinopril 5 mg tablet 5 mg PO DAILY #90 tab 11/02/20 11/03/20 Previous Rx's Medication Instructions Recorded aspirin 81 mg PO DAILY #30 tab 02/26/20 cephalexin 500 mg capsule 500 mg PO BID #10 cap 11/02/20 lisinopril 5 mg tablet 5 mg PO DAILY #90 tab 11/02/20 Allergies Allergy/AdvReac Type Severity Reaction Status Date / Time No Known Allergies Allergy Verified 11/03/20 13:14 General PERRY: 2 Review of Systems All systems reviewed & are unremarkable except as noted in HPI and below Constitutional Constitutional: Reports as per HPI, Denies chills and Denies fever(s) Eyes Eyes: Denies blurry vision ENT Ears, Nose, Mouth, and Throat: Denies dizziness, Reports disequilibrium, Denies sore throat and Denies throat swelling Cardiovascular Cardiovascular: Denies chest pain and Denies dyspnea Respiratory Respiratory: Denies cough and Denies dyspnea Gastrointestinal Gastrointestinal: Denies abdominal pain, Denies diarrhea and Denies vomiting Genitourinary Genitourinary: Denies hematuria and Denies dysuria Musculoskeletal Musculoskeletal: Reports abnormal gait, Denies back pain and Denies numbness Integumentary/Breasts Skin/Breast: Denies lesions and Denies rash Neurologic Neurologic: Reports abnormal gait, Reports confusion, Denies dizziness, Reports lack of coordination, Denies localized weakness, Reports memory loss, Denies numbness and Reports disequilibrium Psychiatric Psychiatric: Reports confusion and Reports memory loss Allergic/Immunologic Allergic/Immunologic: Denies throat swelling [facility] Medical History (Updated 11/03/20 @ 16:45 by Nadine Falcon DO) Acute kidney injury superimposed on chronic kidney disease CKD (chronic kidney disease) CLL (chronic lymphocytic leukemia) CVA (cerebral vascular accident) Depressive disorder Essential hypertension Essential hypertension (01/09/18) Non-Hodgkin lymphoma Surgical History EGD - MAC (06/05/18) History of stem cell transplant Laparotomy After perforation from ERCP Ulnar Nerve Transposition Family History Mother No problems noted. Father , 74 AML (acute myeloblastic leukemia) Sister No problems noted. Brother Hyperlipidemia Maternal Grandfather Stroke Paternal Grandfather , 55 Lymphoma Maternal Grandmother , 90 Essential hypertension Paternal Grandmother , 90 No problems noted. Brother No problems noted. Brother No problems noted. Son No problems noted. Son No problems noted. 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 Pets and animals: Yes Pets and animals: cat(s) Current gender identity: decline to answer What is your relationship status?: How often do you talk on the phone with friends or family?: once per week How often do you get together with friends or relatives?: three or more times per week How often do you attend anglican or pentecostalism services?: 4 or more times per year Do you belong to any clubs or organized social groups?: yes Panel score (0-1 are the most socially isolated patients): 4 What type of physical activity do you participate in: walking and other Duration: 60-90 minutes/day Frequency: 5-6 times per week Erica/Worship: Muslim Agree to transfusion: No Seatbelt use: always Helmet use: Yes Helmet use: always Drive intox or ride w/intox tanker driver: No Do you feel safe at home: Yes Do you feel safe in your relationship?: Yes Exam Const General: cooperative and no acute distress Orientation: alert and awake [facility] Head: normal to inspection Ears: hearing grossly normal bilaterally and external ears normal General nose exam: external nose normal Face and sinus: normal facial exam Mouth: oral mucosae normal Throat: posterior oropharynx normal Eyes General: appearance normal, both eyes and all related structures Eyelids: eyelids normal Pupils: PERRL EOM: EOM intact bilaterally Neck Neck: normal visual inspection Lymphatic: no lymphadenopathy noted Chest Chest: normal inspection of the chest Resp Effort & Inspection: normal respiratory effort and able to speak in complete sentences Auscultation: clear to auscultation bilaterally Cardio Rate: regular rate Rhythm: regular rhythm GI Inspection: normal to inspection Palpation: soft, not firm, no guarding, no hepatosplenomegaly, no masses and nontender Auscultation: normal bowel sounds Back/Spine/Pelvis Thoracic/Lumbar Spine: thoracic and lumbar spine normal to inspection Skin General skin exam: no rashes or lesions noted Neuro General: patient alert and patient awake Cranial Nerves: CN's II-XI intact bilaterally Cognition: normal cognition Speech: speech normal Motor: muscle tone normal throughout and strength 5/5 throughout Sensory Exam: no sensory deficits noted Other: Nonpitting edema LLE extending into foot. L DP/PT pulses intact. No tenderness to palpation to left medial or lateral malleolus. No pain in left hip, thigh or knee with range of motion. No pain in bilateral upper extremities or right lower extremity with range of motion or palpation. Extrem General: normal to inspection, full ROM and capillary refill normal Psych Appearance: grossly normal Mental Status: mental status grossly normal Speech and Movement: speech and movement normal Affect: normal affect Thought Process: normal Course Vital Signs Vital signs: Respiratory Effort Non-Labored 11/03/20 13:12 Respiratory Depth Normal 11/03/20 13:12 Respiratory Pattern Normal 11/03/20 13:12 Pain Level 0 11/03/20 13:12
--- NOTE | 2020-11-03 13:45 | RT.EKG_ITS ---
APPROVED REPORT Exam: Resting ECG Patient Location: E HR:64 bpm ECG Measurements Heart Rate 64 AXIS PA 139 P 41 QRSd 93 QRS 14 QT 421 T 24 QTc 435 Conclusion Sinus rhythm...normal P axis, V-rate 60- 99 Atrial premature complex...SV complex w/ short R-R interval I have reviewed and interpreted ECG and agree with software generated interpretation.
--- NOTE | 2020-11-03 13:45 | DI.RAD_ITS ---
EXAM: XR CHEST 2V PA LATERAL CLINICAL HISTORY: confusion, fall, r/o acute disease TECHNIQUE: 2D digital imaging was performed. COMPARISON: CR,XR XR CHEST 2V PA LATERAL from 02/25/2020 FINDINGS: MEDIASTINUM: Normal. HEART: Normal. PULMONARY VASCULATURE: Normal. LUNGS: Clear. PLEURAL SPACE: No pleural effusion or pneumothorax. BONE:Within normal limits for the patient's age. OTHER FINDINGS:Normal. IMPRESSION: No acute pulmonary findings. DATA REPOSITORY: RADIATION DOSE DELIVERED:
[2020-11-03 13:56] LABS: Abs Immature Grans 0.02 10^3/uL (0.0-0.06); Absolute Basophil Count 0.03 10^3/uL (0.0-0.2); Absolute Eosinophil Count 0.07 10^3/uL (0.0-0.7); Absolute Lymphocyte Count 1.47 10^3/uL (1.2-3.4); Absolute Monocyte Count 0.51 10^3/uL (0.1-0.8); Absolute Neutrophil Count 4.84 10^3/uL (1.2-6.7); Basophils % 0.4; HCT 47.5 % (40.0-50.0); HGB 15.7 g/dL (13.5-17.5); Immature Grans % 0.3; Lymphocytes % 21.2; MCH 30.1 pg (27.0-33.0); MCHC 33.1 % (32.0-36.0); MPV 9.4 fL (8.0-11.0); Monocytes % 7.3; Neutrophils % 69.8; Nucleated RBC 0 %; Platelet Count 127 10^3/uL (130-400); RBC 5.22 10^6/uL (4.36-5.78); RDW 11.9 % (11.8-14.1); RDW-SD 39.5 fL; WBC 6.94 10^3/uL (4.4-10.8)
[2020-11-03] MEDS: Normal Saline 250 ML 500 ML IV (13:59)
[2020-11-03 14:08] LABS: ALT 32 U/L (16-63); AST 25 U/L (15-37); Albumin 3.8 g/dL (3.4-5.0); Alkaline Phosphatase 101 U/L (46-116); Anion Gap 6.1 mmol/L (3-11); BUN 27 mg/dL (7-18); Bilirubin, Total 0.7 mg/dL (0.2-1.0); CO2 28.9 mmol/L (21.0-32.0); CREATININE 1.86 mg/dL (0.70-1.30); Calcium 9.2 mg/dL (8.5-10.1); Chloride 103 mmol/L (98-107); Estimated GFR 36.31 (mL/min/1.73m2); Glucose 93 mg/dL (74-106); Magnesium 1.7 mg/dL (1.8-2.4); Potassium 3.7 mmol/L (3.5-5.1); Sodium 138 mmol/L (136-145); Total Protein 6.6 g/dL (6.4-8.2)
[2020-11-03 14:09] LABS: Troponin I < 0.05 ng/mL (<0.06)
[2020-11-03 14:10] LABS: INR 1.1 (0.9-1.1); PTT Activated 23.4 sec (21.0-27.5); Prothrombin Time 10.9 sec (9.3-11.0)
--- NOTE | 2020-11-03 14:18 | DI.MRI_ITS ---
CLINICAL HISTORY: confusion, memory loss, balance problem. TECHNIQUE: Multiplanar multisequence MRA of the brain was performed. COMPARISON: Priors available for comparison. FINDINGS: Carotid Arteries: No aneurysm, occlusion or significant stenosis. Anterior Cerebral Arteries: Right: No aneurysm, occlusion or significant stenosis. Left: No aneurysm, occlusion or significant stenosis. Middle Cerebral Arteries: Right: No aneurysm, occlusion or significant stenosis. Left: No aneurysm, occlusion or significant stenosis. Posterior Cerebral Arteries: Right: No aneurysm, occlusion or significant stenosis. Left: No aneurysm, occlusion or significant stenosis. Vertebral Arteries: Right: No aneurysm, occlusion or significant stenosis. Left: No aneurysm, occlusion or significant stenosis. Basilar Artery: No aneurysm, occlusion or significant stenosis. IMPRESSION: Normal MRA examination of the [place] of [place]. DATA REPOSITORY:
[2020-11-03] MEDS: Gadoterate meglumine 20 ML VIAL 8 ML IVP (14:50)
--- NOTE | 2020-11-03 15:00 | DI.MRI_ITS ---
EXAM: MR BRAIN WO/W and CT head without CLINICAL HISTORY: confusion, memory loss, balance problem, r/o cva TECHNIQUE: Multiplanar multisequence MRI of the brain was performed. CONTRAST MATERIAL: IV Contrast: 8 ML of Dotarem contrast administered. COMPARISON: MR MR BRAIN WO from 02/26/2020 FINDINGS: The noncontrast CT scan shows diffuse decreased attenuation involving the white matter of both cerebr al hemispheres right greater than left. There is a face mint of the sulci of all lobes of the right cerebral hemisphere and predominantly the left parietal and occipital sulci. There is compression of the right lateral ventricle. There is 5-6 mm leftward shift of the midline. No intracranial hemorr yudith is present. The basilar cisterns are patent. The calvarium is intact. The visualized paranasa l sinuses and mastoid air cells are clear. On the noncontrast MRI examination, hyperintense signal is seen on the T2 weighted images in the whit e matter corresponding to the hypodense areas on the CT scan. Similar findings of sulcal effacement and midline shift are noted. There are areas of restricted diffusion noted in the right frontal and parietal lobe, the splenium of the corpus callosum and the left occipital lobe. These areas correspo nd to subsequent areas of enhancement following gadolinium administration. The visualized paranasal sinuses are clear. There is a normal flow void in the [id number]. Th e pituitary gland is grossly unremarkable. IMPRESSION: Intracranial enhancing lesions involving the right frontal, right parietal, corpus callosum and left occipital lobe as described above. Extensive white matter edema with mass effect on the adjacent ying tricles and sulci and is 6 mm shift of the midline to the left. Diagnostic considerations include CN S lymphoma, glial tumor including glioblastoma, infection, metastatic disease or PML. DATA REPOSITORY:
[2020-11-03 15:20] LABS: Bilirubin Negative (Negative); Blood Negative (Negative); Clarity Clear (Clear); Glucose Negative (Negative); Ketones Negative (Negative); Leukocyte Esterase Negative (Negative); Nitrite Negative (Negative); Urobilinogen 0.2 EU/dL (Up TO 0.2); pH 5.5 (5-8)
[2020-11-03] MEDS: levETIRAcetam 1,000 MG in Normal Saline 100 ML 400 MG IVPB (16:42)
== END 2020-11-03 18:07 | disposition short-term general hospital (02) ==
PROVIDERS: Emergency Provider Physician Assistant; PCP Family Medicine
DX: I82.402 Acute embolism and thrombosis of unspecified deep veins of left lower extremity (principal); R90.0 Intracranial space-occupying lesion found on diagnostic imaging of central nervous system; S89.82XA Other specified injuries of left lower leg, initial encounter; V00.321A Fall from snow-skis, initial encounter; Y93.24 Activity, cross country skiing; Z85.6 Personal history of leukemia; Z85.72 Personal history of non-Hodgkin lymphomas; I12.9 Hypertensive chronic kidney disease with stage 1 through stage 4 chronic kidney disease, or unspecified chronic kidney disease; N18.9 Chronic kidney disease, unspecified; Z94.84 Stem cells transplant status
CPT/HCPCS: 70544; 70553; 80053; 93005; 96361; 96365; 96366; 99285; 70450; 71046; 73590; 73610; 81003; 83735; 84484; 85025; 85610; 85730; 93010; 93971; J1953

== ENCOUNTER 2020-11-18 08:00 | Outpatient (CLI) | payer MEDICARE, BC, SELFPAY ==
[2020-11-18 14:08] LABS: Abs Immature Grans 0.19 10^3/uL (0.0-0.06); Absolute Basophil Count 0.02 10^3/uL (0.0-0.2); Absolute Eosinophil Count 0.02 10^3/uL (0.0-0.7); Absolute Lymphocyte Count 0.73 10^3/uL (1.2-3.4); Basophils % 0.1; Eosinophils % 0.1; HCT 43.3 % (40.0-50.0); HGB 14.1 g/dL (13.5-17.5); Immature Grans % 1.2; Lymphocytes % 4.6; MCH 30.1 pg (27.0-33.0); MCHC 32.6 % (32.0-36.0); MCV 92.3 fL (80-95); MPV 10.6 fL (8.0-11.0); Monocytes % 1.1; Neutrophils % 92.9; Nucleated RBC 0 %; RBC 4.69 10^6/uL (4.36-5.78); RDW 11.9 % (11.8-14.1); RDW-SD 40.1 fL; WBC 15.79 10^3/uL (4.4-10.8)
[2020-11-18 14:09] LABS: Absolute Monocyte Count 0.17 10^3/uL (0.1-0.8); Absolute Neutrophil Count 14.67 10^3/uL (1.2-6.7)
[2020-11-18 14:22] LABS: Diff Comment PLT Morph Reviewed; Platelet Count 53 10^3/uL (130-400); RBC Morphology Normal
[2020-11-18 15:17] LABS: ALT 496 U/L (16-63); AST 95 U/L (15-37); Albumin 3.6 g/dL (3.4-5.0); Alkaline Phosphatase 176 U/L (46-116); BUN 43 mg/dL (7-18); Bilirubin, Total 0.7 mg/dL (0.2-1.0); CREATININE 1.7 mg/dL (0.70-1.30); Calcium 9.3 mg/dL (8.5-10.1); Chloride 102 mmol/L (98-107); Estimated GFR 40.28 (mL/min/1.73m2); Glucose 120 mg/dL (74-106); LDH 248 U/L (85-227); Potassium 3.7 mmol/L (3.5-5.1); Sodium 141 mmol/L (136-145); Total Protein 6.4 g/dL (6.4-8.2)
== END 2020-11-18 08:01 | disposition home or self-care (01) ==
LOC: LBO 08:02
PROVIDERS: PCP Family Medicine; Visit Provider Internal Medicine Hematology & Oncology
DX: C83.30 Diffuse large B-cell lymphoma, unspecified site (principal); C85.89 Other specified types of non-Hodgkin lymphoma, extranodal and solid organ sites
CPT/HCPCS: 36415; 80053; 83615; 85025

== ENCOUNTER 2020-11-23 03:25 | Outpatient (CLI) | payer MEDICARE, BC, SELFPAY ==
[2020-11-23 08:52] LABS: Abs Immature Grans 0.06 10^3/uL (0.0-0.06); Absolute Basophil Count 0.01 10^3/uL (0.0-0.2); Absolute Lymphocyte Count 0.94 10^3/uL (1.2-3.4); Absolute Monocyte Count 0.26 10^3/uL (0.1-0.8); Absolute Neutrophil Count 5.55 10^3/uL (1.2-6.7); Basophils % 0.1; HCT 42.6 % (40.0-50.0); HGB 13.9 g/dL (13.5-17.5); Immature Grans % 0.9; Lymphocytes % 13.8; MCHC 32.6 % (32.0-36.0); MPV 10.6 fL (8.0-11.0); Monocytes % 3.8; Neutrophils % 81.4; Nucleated RBC 0 %; RBC 4.63 10^6/uL (4.36-5.78); RDW 12.8 % (11.8-14.1); RDW-SD 40.4 fL; WBC 6.82 10^3/uL (4.4-10.8)
[2020-11-23 09:01] LABS: Diff Comment PLT Morph Reviewed; Platelet Count 74 10^3/uL (130-400); RBC Morphology Normal
[2020-11-23 09:06] LABS: ALT 130 U/L (16-63); AST 30 U/L (15-37); Albumin 3.4 g/dL (3.4-5.0); Alkaline Phosphatase 128 U/L (46-116); Anion Gap 11.3 mmol/L (3-11); BUN 38 mg/dL (7-18); Bilirubin, Total 0.6 mg/dL (0.2-1.0); CO2 23.7 mmol/L (21.0-32.0); CREATININE 1.6 mg/dL (0.70-1.30); Calcium 8.4 mg/dL (8.5-10.1); Chloride 104 mmol/L (98-107); Glucose 140 mg/dL (74-106); LDH 169 U/L (85-227); Sodium 139 mmol/L (136-145); Total Protein 6.1 g/dL (6.4-8.2)
== END 2020-11-23 03:26 | disposition home or self-care (01) ==
LOC: LBO 03:25
PROVIDERS: PCP Family Medicine; Visit Provider Internal Medicine Hematology & Oncology
DX: C83.30 Diffuse large B-cell lymphoma, unspecified site (principal); C85.89 Other specified types of non-Hodgkin lymphoma, extranodal and solid organ sites
CPT/HCPCS: 36415; 80053; 83615; 85025

== ENCOUNTER 2020-11-23 08:17 | Outpatient (RCR) | payer MEDICARE, BC, SELFPAY ==
[2020-11-23] MEDS: Heparin 500 UNITS/5 ML SYRINGE (08:33)
[2020-11-23] MEDS: Normal Saline Flush 10 ML SYR IVP (08:39)
== END 2020-12-13 23:59 | disposition home or self-care (01) ==
LOC: INF 08:17
PROVIDERS: PCP Family Medicine; Visit Provider Internal Medicine Hematology & Oncology
DX: Z45.2 Encounter for adjustment and management of vascular access device (principal)

== ENCOUNTER 2021-01-07 10:40 | Outpatient (RCR) | payer MEDICARE, BC, SELFPAY ==
[2020-12-17] MEDS: Normal Saline Flush 10 ML SYR IVP (08:23)
[2020-12-17] MEDS: Heparin 500 UNITS/5 ML SYRINGE IV (08:23)
[2020-12-17 08:33] LABS: Abs Immature Grans 1.59 10^3/uL (0.0-0.06); HGB 11.9 g/dL (13.5-17.5); MCH 31.1 pg (27.0-33.0); MCHC 32.2 % (32.0-36.0); MCV 96.6 fL (80-95); MPV 11.6 fL (8.0-11.0); Nucleated RBC 1 %; RBC 3.83 10^6/uL (4.36-5.78); RDW 16.4 % (11.8-14.1); RDW-SD 56.7 fL; WBC 15.37 10^3/uL (4.4-10.8)
[2020-12-17 08:50] LABS: Platelet Count 52 10^3/uL (130-400)
[2020-12-17 08:51] LABS: Absolute Lymphocyte Count 1.54 10^3/uL (1.2-3.4); Absolute Monocyte Count 0.77 10^3/uL (0.1-0.8); Absolute Neutrophil Count 12.45 10^3/uL (1.2-6.7); Anisocytosis 1+; Atypical Lymphocytes % 3; Bands % 13; Diff Comment Manual Differential; Metamyelocytes % 4; Polychromasia Present
[2020-12-17 08:54] LABS: ALT 234 U/L (16-63); AST 41 U/L (15-37); Albumin 2.9 g/dL (3.4-5.0); Alkaline Phosphatase 128 U/L (46-116); Anion Gap 8.6 mmol/L (3-11); BUN 55 mg/dL (7-18); Bilirubin, Total 0.6 mg/dL (0.2-1.0); CO2 26.4 mmol/L (21.0-32.0); CREATININE 1.9 mg/dL (0.70-1.30); Calcium 8.6 mg/dL (8.5-10.1); Chloride 107 mmol/L (98-107); Estimated GFR 35.43 (mL/min/1.73m2); Glucose 99 mg/dL (74-106); Potassium 4.3 mmol/L (3.5-5.1); Sodium 142 mmol/L (136-145); Total Protein 5.6 g/dL (6.4-8.2)
[2020-12-18 09:32] LABS: IgA 87 mg/dL (85-499); IgG 165 mg/dL (610-1,616); IgM 33 mg/dL (35-242)
[2021-01-01] MEDS: Normal Saline Flush 10 ML SYR IVP (11:50)
[2021-01-01] MEDS: Heparin 500 UNITS/5 ML SYRINGE IV (11:50)
[2021-01-01 12:08] LABS: Abs Immature Grans 0.01 10^3/uL (0.0-0.06); Absolute Basophil Count 0.01 10^3/uL (0.0-0.2); Absolute Eosinophil Count 0.01 10^3/uL (0.0-0.7); Absolute Lymphocyte Count 0.85 10^3/uL (1.2-3.4); Absolute Monocyte Count 0.46 10^3/uL (0.1-0.8); Absolute Neutrophil Count 1.47 10^3/uL (1.2-6.7); Basophils % 0.4; Eosinophils % 0.4; HCT 28.6 % (40.0-50.0); HGB 9.5 g/dL (13.5-17.5); Immature Grans % 0.4; Lymphocytes % 30.2; MCH 31.6 pg (27.0-33.0); MCHC 33.2 % (32.0-36.0); MPV 12.8 fL (8.0-11.0); Monocytes % 16.4; Neutrophils % 52.2; RBC 3.01 10^6/uL (4.36-5.78); RDW 16.4 % (11.8-14.1); RDW-SD 55.8 fL; WBC 2.81 10^3/uL (4.4-10.8)
[2021-01-01 12:23] LABS: ALT 52 U/L (16-63); AST 30 U/L (15-37); Albumin 2.4 g/dL (3.4-5.0); Alkaline Phosphatase 170 U/L (46-116); Anion Gap 9.8 mmol/L (3-11); BUN 30 mg/dL (7-18); Bilirubin, Total 0.8 mg/dL (0.2-1.0); CO2 25.2 mmol/L (21.0-32.0); CREATININE 2.1 mg/dL (0.70-1.30); Chloride 105 mmol/L (98-107); Estimated GFR 31.56 (mL/min/1.73m2); Glucose 110 mg/dL (74-106); Potassium 3.9 mmol/L (3.5-5.1); Sodium 140 mmol/L (136-145); Total Protein 6.7 g/dL (6.4-8.2)
[2021-01-01 12:33] LABS: Diff Comment Diff Reviewed; Platelet Count 56 10^3/uL (130-400)
[2021-01-01 12:35] LABS: Nucleated RBC 0 %; Polychromasia Present
[2021-01-01 12:36] LABS: Poikilocytes 2+
[2021-01-07 11:06] LABS: Abs Immature Grans 0.27 10^3/uL (0.0-0.06); Absolute Basophil Count 0.06 10^3/uL (0.0-0.2); Absolute Eosinophil Count 0.17 10^3/uL (0.0-0.7); Absolute Monocyte Count 1.05 10^3/uL (0.1-0.8); Absolute Neutrophil Count 4.13 10^3/uL (1.2-6.7); Basophils % 0.8; Eosinophils % 2.3; HCT 29.4 % (40.0-50.0); HGB 9.6 g/dL (13.5-17.5); Immature Grans % 3.6; Lymphocytes % 24.1; MCH 30.8 pg (27.0-33.0); MCHC 32.7 % (32.0-36.0); MCV 94.2 fL (80-95); MPV 11.5 fL (8.0-11.0); Neutrophils % 55.2; Nucleated RBC 1 %; RBC 3.12 10^6/uL (4.36-5.78); RDW 17.7 % (11.8-14.1); RDW-SD 58.6 fL; WBC 7.48 10^3/uL (4.4-10.8)
[2021-01-07 11:17] LABS: Platelet Count 235 10^3/uL (130-400)
[2021-01-07 11:18] LABS: ALT 30 U/L (16-63); AST 23 U/L (15-37); Albumin 2.3 g/dL (3.4-5.0); Alkaline Phosphatase 155 U/L (46-116); Anion Gap 10.2 mmol/L (3-11); Anisocytosis 2+; BUN 30 mg/dL (7-18); Bilirubin, Total 0.7 mg/dL (0.2-1.0); CO2 25.8 mmol/L (21.0-32.0); CREATININE 1.9 mg/dL (0.70-1.30); Chloride 107 mmol/L (98-107); Diff Comment Diff Reviewed; Estimated GFR 35.43 (mL/min/1.73m2); Glucose 131 mg/dL (74-106); Poikilocytes 1+; Polychromasia Present; Potassium 3.5 mmol/L (3.5-5.1); Sodium 143 mmol/L (136-145); Total Protein 6.3 g/dL (6.4-8.2)
[2021-01-07] MEDS: Normal Saline Flush 10 ML SYR IVP (12:19)
[2021-01-07] MEDS: Heparin 500 UNITS/5 ML SYRINGE IV (12:19)
== END 2021-01-13 23:59 | disposition home or self-care (01) ==
LOC: INF 10:40
PROVIDERS: Nurse Practitioner Family; PCP Family Medicine; Visit Provider Internal Medicine Hematology & Oncology
DX: C85.89 Other specified types of non-Hodgkin lymphoma, extranodal and solid organ sites (principal); C83.30 Diffuse large B-cell lymphoma, unspecified site; Z45.2 Encounter for adjustment and management of vascular access device
CPT/HCPCS: 36591; 80053; 82784; 85025

== ENCOUNTER 2021-01-28 03:10 | Outpatient (CLI) | payer MEDICARE, BC, SELFPAY ==
[2021-01-28 12:36] LABS: Abs Immature Grans 0.53 10^3/uL (0.0-0.06); HCT 28.7 % (40.0-50.0); HGB 8.9 g/dL (13.5-17.5); MCH 30.9 pg (27.0-33.0); MCV 99.7 fL (80-95); MPV 10.8 fL (8.0-11.0); Nucleated RBC 0 %; Platelet Count 196 10^3/uL (130-400); RBC 2.88 10^6/uL (4.36-5.78); RDW 17.8 % (11.8-14.1); WBC 9.53 10^3/uL (4.4-10.8)
[2021-01-28 12:48] LABS: ALT 19 U/L (16-63); AST 16 U/L (15-37); Albumin 2.3 g/dL (3.4-5.0); Alkaline Phosphatase 115 U/L (46-116); Anion Gap 7.5 mmol/L (3-11); BUN 21 mg/dL (7-18); Bilirubin, Total 0.3 mg/dL (0.2-1.0); CO2 26.5 mmol/L (21.0-32.0); CREATININE 1.5 mg/dL (0.70-1.30); Calcium 8.5 mg/dL (8.5-10.1); Chloride 109 mmol/L (98-107); Estimated GFR 46.54 (mL/min/1.73m2); Glucose 97 mg/dL (74-106); Potassium 4.2 mmol/L (3.5-5.1); Sodium 143 mmol/L (136-145); Total Protein 5.4 g/dL (6.4-8.2)
[2021-01-28 12:52] LABS: Absolute Lymphocyte Count 1.33 10^3/uL (1.2-3.4); Absolute Neutrophil Count 6.58 10^3/uL (1.2-6.7); Bands % 3
[2021-01-28 12:53] LABS: Absolute Monocyte Count 1.05 10^3/uL (0.1-0.8); Anisocytosis 1+; Basophilic Stippling Present; Diff Comment Manual Differential; Metamyelocytes % 3; Myelocytes % 3; Polychromasia Present
== END 2021-01-28 03:11 | disposition home or self-care (01) ==
LOC: LBO 03:10 → LBN 13:24
PROVIDERS: PCP Family Medicine; Visit Provider Internal Medicine Hematology & Oncology
DX: C83.30 Diffuse large B-cell lymphoma, unspecified site (principal); C85.89 Other specified types of non-Hodgkin lymphoma, extranodal and solid organ sites
CPT/HCPCS: 80053; 85025

== ENCOUNTER 2021-02-11 01:48 | Outpatient (RCR) | payer MEDICARE, BC, SELFPAY ==
[2021-02-11] MEDS: Normal Saline Flush 10 ML SYR IVP (07:56)
[2021-02-11] MEDS: Heparin 500 UNITS/5 ML SYRINGE IV (07:57)
[2021-02-11 08:11] LABS: Abs Immature Grans 0.01 10^3/uL (0.0-0.06); Absolute Basophil Count 0.02 10^3/uL (0.0-0.2); Absolute Eosinophil Count 0.06 10^3/uL (0.0-0.7); Absolute Lymphocyte Count 0.74 10^3/uL (1.2-3.4); Absolute Monocyte Count 0.82 10^3/uL (0.1-0.8); Absolute Neutrophil Count 2.98 10^3/uL (1.2-6.7); Basophils % 0.4; Eosinophils % 1.3; HCT 29.6 % (40.0-50.0); HGB 9.1 g/dL (13.5-17.5); Immature Grans % 0.2; MCH 30.5 pg (27.0-33.0); MCHC 30.7 % (32.0-36.0); MCV 99.3 fL (80-95); MPV 11.1 fL (8.0-11.0); Monocytes % 17.7; Neutrophils % 64.4; Nucleated RBC 0 %; Platelet Count 141 10^3/uL (130-400); RBC 2.98 10^6/uL (4.36-5.78); RDW 16.3 % (11.8-14.1); RDW-SD 58.4 fL; WBC 4.63 10^3/uL (4.4-10.8)
[2021-02-11 08:29] LABS: ALT 15 U/L (16-63); AST 22 U/L (15-37); Albumin 2.7 g/dL (3.4-5.0); Alkaline Phosphatase 86 U/L (46-116); BUN 24 mg/dL (7-18); Bilirubin, Total 0.5 mg/dL (0.2-1.0); CREATININE 1.8 mg/dL (0.70-1.30); Calcium 8.1 mg/dL (8.5-10.1); Chloride 105 mmol/L (98-107); Estimated GFR 37.71 (mL/min/1.73m2); Glucose 124 mg/dL (74-106); LDH 144 U/L (85-227); Sodium 144 mmol/L (136-145); Total Protein 5.9 g/dL (6.4-8.2)
== END 2021-02-12 23:59 | disposition home or self-care (01) ==
LOC: INF 01:48
PROVIDERS: PCP Family Medicine; Visit Provider Internal Medicine Hematology & Oncology
DX: C83.30 Diffuse large B-cell lymphoma, unspecified site (principal); C85.89 Other specified types of non-Hodgkin lymphoma, extranodal and solid organ sites; Z45.2 Encounter for adjustment and management of vascular access device
CPT/HCPCS: 36591; 80053; 83615; 85025

== ENCOUNTER 2021-03-10 09:00 | Outpatient (RCR) | payer MEDICARE, BC, SELFPAY ==
[2021-02-17] MEDS: Normal Saline Flush 10 ML SYR IVP (09:19)
[2021-02-17] MEDS: Heparin 500 UNITS/5 ML SYRINGE IV (09:20)
[2021-02-17 09:36] LABS: Abs Immature Grans 0.02 10^3/uL (0.0-0.06); Absolute Basophil Count 0.03 10^3/uL (0.0-0.2); Absolute Eosinophil Count 0.16 10^3/uL (0.0-0.7); Absolute Monocyte Count 0.64 10^3/uL (0.1-0.8); Absolute Neutrophil Count 3.36 10^3/uL (1.2-6.7); Basophils % 0.6; HGB 9.7 g/dL (13.5-17.5); Immature Grans % 0.4; Lymphocytes % 20.7; MCH 29.6 pg (27.0-33.0); MCHC 30.3 % (32.0-36.0); MCV 97.6 fL (80-95); MPV 10.1 fL (8.0-11.0); Monocytes % 12.1; Neutrophils % 63.2; Nucleated RBC 0 %; Platelet Count 211 10^3/uL (130-400); RBC 3.28 10^6/uL (4.36-5.78); RDW 15.1 % (11.8-14.1); RDW-SD 54.4 fL; WBC 5.31 10^3/uL (4.4-10.8)
[2021-02-17 09:41] LABS: ALT 16 U/L (16-63); AST 15 U/L (15-37); Albumin 2.7 g/dL (3.4-5.0); Alkaline Phosphatase 79 U/L (46-116); Anion Gap 9.6 mmol/L (3-11); BUN 21 mg/dL (7-18); Bilirubin, Total 0.4 mg/dL (0.2-1.0); CO2 27.4 mmol/L (21.0-32.0); CREATININE 1.5 mg/dL (0.70-1.30); Calcium 8.7 mg/dL (8.5-10.1); Chloride 105 mmol/L (98-107); Estimated GFR 46.54 (mL/min/1.73m2); Glucose 115 mg/dL (74-106); LDH 111 U/L (85-227); Potassium 4.3 mmol/L (3.5-5.1); Sodium 142 mmol/L (136-145); Total Protein 5.9 g/dL (6.4-8.2)
[2021-03-10] MEDS: Normal Saline Flush 10 ML SYR IVP (09:08)
[2021-03-10] MEDS: Heparin 500 UNITS/5 ML SYRINGE IV (09:08)
[2021-03-10 09:16] LABS: Abs Immature Grans 0.32 10^3/uL (0.0-0.06); Absolute Basophil Count 0.03 10^3/uL (0.0-0.2); Absolute Eosinophil Count 0.11 10^3/uL (0.0-0.7); Absolute Lymphocyte Count 1.36 10^3/uL (1.2-3.4); Absolute Monocyte Count 0.92 10^3/uL (0.1-0.8); Absolute Neutrophil Count 4.74 10^3/uL (1.2-6.7); Basophils % 0.4; Eosinophils % 1.5; HCT 35.9 % (40.0-50.0); HGB 10.8 g/dL (13.5-17.5); Immature Grans % 4.3; Lymphocytes % 18.2; MCH 28.7 pg (27.0-33.0); MCHC 30.1 % (32.0-36.0); MCV 95.5 fL (80-95); MPV 11.3 fL (8.0-11.0); Monocytes % 12.3; Neutrophils % 63.3; Nucleated RBC 0 %; Platelet Count 111 10^3/uL (130-400); RBC 3.76 10^6/uL (4.36-5.78); RDW 15.3 % (11.8-14.1); RDW-SD 53.1 fL; WBC 7.48 10^3/uL (4.4-10.8)
[2021-03-10 09:37] LABS: ALT 17 U/L (16-63); AST 19 U/L (15-37); Albumin 2.9 g/dL (3.4-5.0); Alkaline Phosphatase 117 U/L (46-116); Anion Gap 8.7 mmol/L (3-11); BUN 26 mg/dL (7-18); Bilirubin, Total 0.4 mg/dL (0.2-1.0); CO2 28.3 mmol/L (21.0-32.0); CREATININE 1.7 mg/dL (0.70-1.30); Calcium 8.7 mg/dL (8.5-10.1); Chloride 104 mmol/L (98-107); Estimated GFR 40.28 (mL/min/1.73m2); Glucose 100 mg/dL (74-106); LDH 98 U/L (85-227); Potassium 4.6 mmol/L (3.5-5.1); Sodium 141 mmol/L (136-145); Total Protein 6.2 g/dL (6.4-8.2)
== END 2021-03-15 23:59 | disposition home or self-care (01) ==
LOC: INF 09:00
PROVIDERS: PCP Family Medicine; Visit Provider Internal Medicine Hematology & Oncology
DX: C83.30 Diffuse large B-cell lymphoma, unspecified site (principal); C85.89 Other specified types of non-Hodgkin lymphoma, extranodal and solid organ sites; Z45.2 Encounter for adjustment and management of vascular access device
CPT/HCPCS: 36591; 80053; 83615; 85025

== ENCOUNTER 2021-05-11 03:11 | Outpatient (RCR) | payer MEDICARE, BC, SELFPAY ==
[2021-05-11] MEDS: Normal Saline Flush 10 ML SYR IVP (09:10)
[2021-05-11] MEDS: Heparin 500 UNITS/5 ML SYRINGE IV (09:10)
[2021-05-11 09:16] LABS: Abs Immature Grans 0.05 10^3/uL (0.0-0.06); Absolute Basophil Count 0.04 10^3/uL (0.0-0.2); Absolute Eosinophil Count 0.07 10^3/uL (0.0-0.7); Absolute Lymphocyte Count 1.37 10^3/uL (1.2-3.4); Absolute Monocyte Count 0.56 10^3/uL (0.1-0.8); Absolute Neutrophil Count 4.84 10^3/uL (1.2-6.7); Basophils % 0.6; HCT 39.9 % (40.0-50.0); HGB 12.1 g/dL (13.5-17.5); Immature Grans % 0.7; Lymphocytes % 19.8; MCH 27.3 pg (27.0-33.0); MCHC 30.3 % (32.0-36.0); MCV 90.1 fL (80-95); MPV 11.2 fL (8.0-11.0); Monocytes % 8.1; Neutrophils % 69.8; Nucleated RBC 0 %; Platelet Count 133 10^3/uL (130-400); RBC 4.43 10^6/uL (4.36-5.78); RDW 14.7 % (11.8-14.1); RDW-SD 49.1 fL; WBC 6.93 10^3/uL (4.4-10.8)
[2021-05-11 09:27] LABS: ALT 13 U/L (16-63); AST 11 U/L (15-37); Alkaline Phosphatase 85 U/L (46-116); Anion Gap 7.9 mmol/L (3-11); BUN 24 mg/dL (7-18); Bilirubin, Total 0.4 mg/dL (0.2-1.0); CO2 29.1 mmol/L (21.0-32.0); CREATININE 1.4 mg/dL (0.70-1.30); Calcium 8.7 mg/dL (8.5-10.1); Chloride 107 mmol/L (98-107); Glucose 82 mg/dL (74-106); Potassium 3.9 mmol/L (3.5-5.1); Sodium 144 mmol/L (136-145); Total Protein 5.8 g/dL (6.4-8.2)
== END 2021-05-15 23:59 | disposition home or self-care (01) ==
LOC: INF 03:11
PROVIDERS: PCP Nurse Practitioner Family; Visit Provider Internal Medicine Hematology & Oncology
DX: C83.30 Diffuse large B-cell lymphoma, unspecified site (principal); C85.89 Other specified types of non-Hodgkin lymphoma, extranodal and solid organ sites; Z45.2 Encounter for adjustment and management of vascular access device
CPT/HCPCS: 36591; 80053; 85025

== ENCOUNTER 2021-06-07 01:51 | Outpatient (RCR) | payer MEDICARE, BC, SELFPAY ==
[2021-05-24] MEDS: Normal Saline Flush 10 ML SYR IVP (10:56)
[2021-05-24] MEDS: Heparin 500 UNITS/5 ML SYRINGE IV (10:56)
[2021-05-24 11:20] LABS: Abs Immature Grans 0.06 10^3/uL (0.0-0.06); Absolute Basophil Count 0.05 10^3/uL (0.0-0.2); Absolute Eosinophil Count 0.03 10^3/uL (0.0-0.7); Absolute Lymphocyte Count 1.65 10^3/uL (1.2-3.4); Absolute Monocyte Count 0.75 10^3/uL (0.1-0.8); Absolute Neutrophil Count 5.17 10^3/uL (1.2-6.7); Basophils % 0.6; Eosinophils % 0.4; HCT 39.2 % (40.0-50.0); HGB 12.1 g/dL (13.5-17.5); Immature Grans % 0.8; Lymphocytes % 21.4; MCH 27.9 pg (27.0-33.0); MCHC 30.9 % (32.0-36.0); MCV 90.3 fL (80-95); MPV 11.2 fL (8.0-11.0); Monocytes % 9.7; Neutrophils % 67.1; Nucleated RBC 0 %; Platelet Count 122 10^3/uL (130-400); RBC 4.34 10^6/uL (4.36-5.78); RDW 15.7 % (11.8-14.1); RDW-SD 51.9 fL; WBC 7.71 10^3/uL (4.4-10.8)
[2021-05-24 11:47] LABS: ALT 18 U/L (16-63); AST 16 U/L (15-37); Albumin 3.1 g/dL (3.4-5.0); Alkaline Phosphatase 79 U/L (46-116); Anion Gap 7.8 mmol/L (3-11); BUN 19 mg/dL (7-18); Bilirubin, Total 0.5 mg/dL (0.2-1.0); CO2 28.2 mmol/L (21.0-32.0); CREATININE 1.5 mg/dL (0.70-1.30); Calcium 8.5 mg/dL (8.5-10.1); Chloride 108 mmol/L (98-107); Estimated GFR 46.54 (mL/min/1.73m2); Glucose 85 mg/dL (74-106); Potassium 3.9 mmol/L (3.5-5.1); Sodium 144 mmol/L (136-145); Total Protein 5.7 g/dL (6.4-8.2)
[2021-06-07] MEDS: Heparin 500 UNITS/5 ML SYRINGE IV (09:14)
[2021-06-07] MEDS: Normal Saline Flush 10 ML SYR IVP (09:14)
[2021-06-07 09:34] LABS: Abs Immature Grans 0.05 10^3/uL (0.0-0.06); Absolute Basophil Count 0.04 10^3/uL (0.0-0.2); Absolute Eosinophil Count 0.03 10^3/uL (0.0-0.7); Absolute Lymphocyte Count 1.07 10^3/uL (1.2-3.4); Absolute Monocyte Count 0.61 10^3/uL (0.1-0.8); Absolute Neutrophil Count 4.97 10^3/uL (1.2-6.7); Basophils % 0.6; Eosinophils % 0.4; HCT 42.1 % (40.0-50.0); HGB 12.9 g/dL (13.5-17.5); Immature Grans % 0.7; Lymphocytes % 15.8; MCH 28.4 pg (27.0-33.0); MCHC 30.6 % (32.0-36.0); MCV 92.7 fL (80-95); MPV 11.9 fL (8.0-11.0); Neutrophils % 73.5; Nucleated RBC 0 %; Platelet Count 120 10^3/uL (130-400); RBC 4.54 10^6/uL (4.36-5.78); RDW-SD 54.7 fL; WBC 6.77 10^3/uL (4.4-10.8)
[2021-06-07 09:51] LABS: ALT 19 U/L (16-63); AST 17 U/L (15-37); Albumin 3.2 g/dL (3.4-5.0); Alkaline Phosphatase 93 U/L (46-116); Anion Gap 6.3 mmol/L (3-11); BUN 26 mg/dL (7-18); Bilirubin, Total 0.5 mg/dL (0.2-1.0); CO2 29.7 mmol/L (21.0-32.0); CREATININE 1.7 mg/dL (0.70-1.30); Calcium 8.5 mg/dL (8.5-10.1); Chloride 108 mmol/L (98-107); Estimated GFR 40.28 (mL/min/1.73m2); Glucose 94 mg/dL (74-106); LDH 99 U/L (85-227); Potassium 3.9 mmol/L (3.5-5.1); Sodium 144 mmol/L (136-145); Total Protein 5.7 g/dL (6.4-8.2)
== END 2021-06-15 23:59 | disposition home or self-care (01) ==
LOC: INF 01:51
PROVIDERS: PCP Nurse Practitioner Family; Visit Provider Internal Medicine Hematology & Oncology
DX: C83.30 Diffuse large B-cell lymphoma, unspecified site (principal); C85.89 Other specified types of non-Hodgkin lymphoma, extranodal and solid organ sites; Z45.2 Encounter for adjustment and management of vascular access device
CPT/HCPCS: 36591; 80053; 83615; 85025

== ENCOUNTER 2021-08-18 01:30 | Outpatient (RCR) | payer MEDICARE, BC, SELFPAY ==
[2021-08-18] MEDS: Normal Saline Flush 10 ML SYR IVP (09:35)
[2021-08-18] MEDS: Heparin 500 UNITS/5 ML SYRINGE IV (09:36)
== END 2021-09-14 23:59 | disposition home or self-care (01) ==
LOC: INF 01:30
PROVIDERS: PCP Nurse Practitioner Family; Visit Provider Internal Medicine Hematology & Oncology
DX: Z45.2 Encounter for adjustment and management of vascular access device (principal)
CPT/HCPCS: 96523

== ENCOUNTER 2021-09-29 00:34 | Outpatient (RCR) | payer MEDICARE, BC, SELFPAY ==
[2021-09-29] MEDS: Normal Saline Flush 10 ML SYR IVP (09:00)
[2021-09-29] MEDS: Heparin 500 UNITS/5 ML SYRINGE IV (09:00)
== END 2021-10-15 23:59 | disposition home or self-care (01) ==
LOC: INF 00:34
PROVIDERS: PCP Nurse Practitioner Family; Visit Provider Internal Medicine Hematology & Oncology
DX: Z45.2 Encounter for adjustment and management of vascular access device (principal)

== ENCOUNTER 2021-11-03 10:27 | Outpatient (RCR) | payer MEDICARE, SELFPAY | END 2021-11-15 23:59 | disposition home or self-care (01) | LOC: INF 10:27 | PROVIDERS: PCP Nurse Practitioner Family; Visit Provider Internal Medicine Hematology & Oncology | DX: Z45.2 Encounter for adjustment and management of vascular access device (principal) | CPT/HCPCS: 96523 ==

== ENCOUNTER 2021-11-17 02:57 | Outpatient (RCR) | payer MEDICARE, SELFPAY ==
[2021-11-17] MEDS: Normal Saline Flush 10 ML SYR IVP (10:28)
[2021-11-17] MEDS: Heparin 500 UNITS/5 ML SYRINGE IV (10:28)
== END 2021-12-13 23:59 | disposition home or self-care (01) ==
LOC: INF 02:57
PROVIDERS: PCP Nurse Practitioner Family; Visit Provider Internal Medicine Hematology & Oncology
DX: Z45.2 Encounter for adjustment and management of vascular access device (principal)
CPT/HCPCS: 96523

== ENCOUNTER 2021-12-23 02:05 | Outpatient (RCR) | payer MEDICARE, SELFPAY ==
[2021-12-23] MEDS: Normal Saline Flush 10 ML SYR IVP (09:03)
[2021-12-23] MEDS: Heparin 500 UNITS/5 ML SYRINGE IV (09:03)
== END 2022-01-13 23:59 | disposition home or self-care (01) ==
LOC: INF 02:05
PROVIDERS: PCP Nurse Practitioner Family; Visit Provider Internal Medicine Hematology & Oncology
DX: Z45.2 Encounter for adjustment and management of vascular access device (principal)
CPT/HCPCS: 96523

== ENCOUNTER 2022-01-18 04:12 | Outpatient (CLI) | payer MEDICARE, SELFPAY ==
[2022-01-19 00:23] LABS: COVID-19 RT-PCR UVMMC Result Negative (Negative)
== END 2022-01-18 04:13 | disposition home or self-care (01) ==
LOC: LBO 04:14
PROVIDERS: PCP Nurse Practitioner Family; Visit Provider Internal Medicine Hematology & Oncology
DX: Z20.822 Contact with and (suspected) exposure to COVID-19 (principal); Z94.81 Bone marrow transplant status; C85.89 Other specified types of non-Hodgkin lymphoma, extranodal and solid organ sites; C91.10 Chronic lymphocytic leukemia of B-cell type not having achieved remission
CPT/HCPCS: U0003; U0005

== ENCOUNTER 2022-01-20 01:40 | Outpatient (RCR) | payer MEDICARE, SELFPAY ==
[2022-01-20] MEDS: Heparin 500 UNITS/5 ML SYRINGE IV (11:07)
[2022-01-20] MEDS: Normal Saline Flush 10 ML SYR IVP (11:07)
== END 2022-02-12 23:59 | disposition home or self-care (01) ==
LOC: INF 01:40
PROVIDERS: PCP Nurse Practitioner Family; Visit Provider Internal Medicine Hematology & Oncology
DX: C85.89 Other specified types of non-Hodgkin lymphoma, extranodal and solid organ sites (principal); Z92.25 Personal history of immunosuppression therapy; Z45.2 Encounter for adjustment and management of vascular access device
CPT/HCPCS: 96372; 96523; Q0221

== ENCOUNTER → 2022-05-11 09:03 | Outpatient (CLI) | payer MEDICARE, SELFPAY ==
--- NOTE | 2022-05-11 | DI.US_ITS ---
Exam(s) US EXTREMITY VENOUS BI EXAM: US EXTREMITY VENOUS BI CLINICAL HISTORY: PULMONARY EMBOLISM BILAT LEGS I26.99, ? DVT. TECHNIQUE: Bilateral lower extremity venous ultrasound performed using grayscale, color-flow, and sp ectral Doppler analysis. COMPARISON: No exams were available for comparison FINDINGS: The right common femoral, femoral and popliteal veins demonstrate normal compressibility, augmentatio n, and color Doppler. The right posterior tibial veins are patent. The saphenofemoral junctions are u nremarkable. There is no evidence of a Marino's cyst. The soft tissues are unremarkable. There is no e vidence of a right lower extremity DVT. The left femoral, posterior tibial veins and popliteal veins demonstrate normal compressibility, augm entation, and color Doppler. There is hypoechoic thrombus seen in the common femoral vein extending proximally into the visualized left external iliac vein. IMPRESSION: 1. Right: Negative for DVT 2. Left: Findings of a deep venous thrombus in the visualized distal left iliac vein extending into t he common femoral vein. The visualized portion of the thrombus measures 8 cm in length. DATA REPOSITORY:
== END ==
PROVIDERS: PCP Nurse Practitioner Family; Visit Provider Internal Medicine Hematology & Oncology
DX: I26.99 Other pulmonary embolism without acute cor pulmonale (principal); I82.422 Acute embolism and thrombosis of left iliac vein
CPT/HCPCS: 93970

== ENCOUNTER 2022-05-18 11:55 | Outpatient (CLI) | payer MEDICARE, SELFPAY ==
[2022-05-18 12:15] LABS: Abs Immature Grans 0.04 10^3/uL (0.0-0.06); Absolute Basophil Count 0.08 10^3/uL (0.0-0.2); Absolute Eosinophil Count 0.02 10^3/uL (0.0-0.7); Absolute Monocyte Count 0.74 10^3/uL (0.1-0.8); Absolute Neutrophil Count 3.06 10^3/uL (1.2-6.7); Basophils % 1.4; Eosinophils % 0.3; HCT 51.2 % (40.0-50.0); HGB 16.7 g/dL (13.5-17.5); Immature Grans % 0.7; Lymphocytes % 32.5; MCH 30.1 pg (27.0-33.0); MCHC 32.6 % (32.0-36.0); MCV 92 fL (80-95); MPV 10.1 fL (8.0-11.0); Monocytes % 12.7; Neutrophils % 52.4; Platelet Count 173 10^3/uL (130-400); RBC 5.54 10^6/uL (4.36-5.78); RDW 12.7 % (11.8-14.1); RDW-SD 43.3 fL; WBC 5.84 10^3/uL (4.4-10.8)
[2022-05-18 12:28] LABS: ALT 36 U/L (16-63); AST 17 U/L (15-37); Albumin 3.5 g/dL (3.4-5.0); Alkaline Phosphatase 92 U/L (46-116); BUN 32 mg/dL (7-18); Bilirubin, Total 0.7 mg/dL (0.2-1.0); CREATININE 1.7 mg/dL (0.70-1.30); Chloride 104 mmol/L (98-107); Estimated GFR 40.16 (mL/min/1.73m2); Glucose 95 mg/dL (74-106); Potassium 4.3 mmol/L (3.5-5.1); Sodium 138 mmol/L (136-145); Total Protein 6.1 g/dL (6.4-8.2)
== END 2022-05-18 11:56 | disposition home or self-care (01) ==
LOC: LBO 11:55
PROVIDERS: PCP Nurse Practitioner Family; Visit Provider Internal Medicine Hematology & Oncology
DX: C85.89 Other specified types of non-Hodgkin lymphoma, extranodal and solid organ sites (principal); I26.99 Other pulmonary embolism without acute cor pulmonale; C83.39 Diffuse large B-cell lymphoma, extranodal and solid organ sites
CPT/HCPCS: 36415; 80053; 85025

== ENCOUNTER → 2022-06-23 02:18 | Outpatient (CLI) | payer MEDICARE, SELFPAY ==
--- NOTE | 2022-06-23 | DI.US_ITS ---
Exam(s) US THYROID EXAM: US THYROID CLINICAL HISTORY: THYROID NODULE, E04.1 SEEN ON PET SCAN AT [facility] [place]ED FURTHER CHARACTERIZATIO. TECHNIQUE: Ultrasound thyroid performed using standard protocol. COMPARISON: CT CT NECK SOFT TISSUE W CONTRAST (GENERIC) from 05/10/2022 FINDINGS: ISTHMUS: 4.8 mm RIGHT LOBE: Size: 4.7 x 1.8 x 1.5 cm Echogenicity: Normal. Vascularity: Normal. Nodules: None. LEFT LOBE: Size: 5.5 x 2.4 x 2.1 cm Echogenicity: Normal. Vascularity: Normal. Nodules: There is a 1.7 cc by 1.6 transverse by 1.5 AP mixed cystic and solid nodule which is hypoech oic and does appear to contain a few echogenic foci. It is in the midpole of the left lobe. This is consistent with a TI rads level 4 nodule. Due to its size FNA should be considered. There is also an ill-defined 1.8 x 1.9 x 1.8 cm mixed cystic and solid hypoechoic nodule with punctate echogenic fo ci in the inferior pole. This is consistent with a TIRADS level 5 nodule. Due to its size FNA is re commended. OTHER FINDINGS: None. IMPRESSION: Suspicious nodule seen in the left lobe as described above. DATA REPOSITORY:
== END ==
PROVIDERS: PCP Nurse Practitioner Family; Visit Provider Internal Medicine Hematology & Oncology
DX: E04.1 Nontoxic single thyroid nodule (principal)
CPT/HCPCS: 76536

== ENCOUNTER 2022-06-23 03:16 | Outpatient (CLI) | payer MEDICARE, SELFPAY ==
[2022-06-23 15:31] LABS: Abs Immature Grans 0.04 10^3/uL (0.0-0.06); Absolute Basophil Count 0.07 10^3/uL (0.0-0.2); Absolute Lymphocyte Count 2.58 10^3/uL (1.2-3.4); Absolute Neutrophil Count 6.09 10^3/uL (1.2-6.7); Basophils % 0.7; HCT 48.8 % (40.0-50.0); HGB 15.9 g/dL (13.5-17.5); Immature Grans % 0.4; Lymphocytes % 26.9; MCH 30.3 pg (27.0-33.0); MCHC 32.6 % (32.0-36.0); MCV 93 fL (80-95); MPV 10.4 fL (8.0-11.0); Monocytes % 7.3; Neutrophils % 63.7; Platelet Count 170 10^3/uL (130-400); RBC 5.24 10^6/uL (4.36-5.78); RDW 13.5 % (11.8-14.1); RDW-SD 46.4 fL; WBC 9.58 10^3/uL (4.4-10.8)
[2022-06-23 15:45] LABS: ALT 61 U/L (16-63); AST 28 U/L (15-37); Albumin 3.3 g/dL (3.4-5.0); Alkaline Phosphatase 119 U/L (46-116); Anion Gap 4.5 mmol/L (3-11); BUN 43 mg/dL (7-18); Bilirubin, Total 0.5 mg/dL (0.2-1.0); CO2 31.5 mmol/L (21.0-32.0); Calcium 8.7 mg/dL (8.5-10.1); Chloride 107 mmol/L (98-107); Estimated GFR 35.46 (mL/min/1.73m2); Glucose 107 mg/dL (74-106); INR 1.1 (0.9-1.1); LDH 100 U/L (85-227); PTT Activated 26.6 sec (21.0-27.5); Potassium 4.6 mmol/L (3.5-5.1); Prothrombin Time 10.6 sec (9.3-11.0); Sodium 143 mmol/L (136-145)
== END 2022-06-23 03:17 | disposition home or self-care (01) ==
LOC: LBO 03:17
PROVIDERS: PCP Nurse Practitioner Family; Visit Provider Internal Medicine Hematology & Oncology
DX: C85.89 Other specified types of non-Hodgkin lymphoma, extranodal and solid organ sites (principal); I26.99 Other pulmonary embolism without acute cor pulmonale; C83.30 Diffuse large B-cell lymphoma, unspecified site
CPT/HCPCS: 36415; 80053; 83615; 85025; 85610; 85730

== ENCOUNTER 2022-07-06 11:42 | Inpatient (IN) | payer MEDICARE, SELFPAY ==
[2022-07-06] VITALS (47 sets, daily range): BP systolic 93–144; BP diastolic 44–104; PULSE 59–138; RESP 12–32; TEMP 36.9–37.1; O2SAT 95–99
--- NOTE | 2022-07-06 11:45 | RT.EKG_ITS ---
APPROVED REPORT Exam: Resting ECG Reason for Exam: sob Patient Location: E HR:119 bpm ECG Measurements Heart Rate 119 AXIS AL [id number] P [id number] QRSd 87 QRS -31 QT 319 T 13 QTc 449 Conclusion Atrial fibrillation...V-rate 79-165, irreg A-activity Left axis deviation...QRS axis (-30,-90) Abnormal Electrocardiogram
--- NOTE | 2022-07-06 12:15 | RT.EKG_ITS ---
APPROVED REPORT Exam: Resting ECG Reason for Exam: afib Patient Location: E HR:85 bpm ECG Measurements Heart Rate 85 AXIS AK [id number] P [id number] QRSd 92 QRS -24 QT 360 T -12 QTc 429 Conclusion Atrial fibrillation...V-rate 70- 97, irreg A-activity Low voltage, precordial leads...precordial leads <1.0mV Consider anterior infarct...Q >30mS in V2-V5
--- NOTE | 2022-07-06 12:39 | ED.GENADUL_ITS ---
Discharge Plan Disposition Patient Disposition: [facility] INPATIENT Condition: Serious Discharge Details Chief Complaint: GenMedical Clinical Impression: Atrial fibrillation with rapid ventricular response Primary Care Provider: Geovanni Luna ED Provider: Wilman Hayes Home Meds and New Rx's Prescriptions: No Action loratadine [Allergy Relief (loratadine)] 10 mg tablet 10 mg PO DAILY Qty: 90 3RF Eliquis 5 mg tablet 5 mg PO BID losartan 50 mg tablet 50 mg PO DAILY Qty: 90 0RF amlodipine 10 mg tablet 10 mg PO DAILY Qty: 90 3RF melatonin 3 mg capsule 9 mg PO HS PRN Label Comments: Per [facility] famotidine [Pepcid] 20 mg tablet 20 mg PO DAILY Label Comments: per [facility] divalproex [Depakote] 250 mg tablet,delayed release (DR/EC) 250 mg PO BID Label Comments: per [facility] acyclovir 400 mg tablet 400 mg PO BID Label Comments: per [facility] ondansetron HCl 8 mg tablet 8 mg PO Q8H PRN (Reason: nausea and vomiting) Label Comments: per [facility] sulfacetamide sodium [Bleph-10] 10 % drops 1 drp ophthalmic (eye) Q4H Qty: 15 0RF triamcinolone acetonide 0.1 % ointment See Rx Instructions .ROUTE .COMPLEX PRN Label Comments: APPLY TWICE DAILY TO THE AFFECTED AREAS OF LEGS FOR 14 DAYS, TAKE 1 WEEK OFF AND REPEAT NEEDED Rx Instructions: APPLY TWICE DAILY TO THE AFFECTED AREAS OF LEGS FOR 14 DAYS, TAKE 1 WEEK OFF AND REPEAT NEEDED Medical Decision Making 1245 --71-year-old male with history of chronic kidney disease, CVA, hypertension, CLL, SSAS DEVELOPER lymphoma, DVT/PE, now on Eliquis, here with abnormal heart rhythm noted at outpatient oncology appointment. I reviewed bus monitor in the room and patient is in fact in atrial fibrillation with heart rate ranging from 100-140. EKG was reviewed and interpreted by me: Please see report, atrial fibrillation with RVR 119 bpm. Plan to initiate treatment with diltiazem infusion. Plan for hospitalization. I will check electrolytes and thyroid function. -- Patient was given diltiazem 10 mg IV push followed by diltiazem infusion. Heart rate did improve. He was given oral dose of diltiazem 30 mg and diltiazem infusion was tapered off. Patient maintaining rate control but remains in atrial fibrillation. Plan to admit for further treatment. I spoke with Dr. Najera who evaluated the patient and will admit the patient to the medical surgical floor. Care transitioned at time of admission. Lab Data Lab results reviewed: Yes I reviewed the patient's lab results. Labs: Laboratory Tests Range/Units 07/06/22 07/06/22 07/06/22 12:17 12:17 12:18 WBC (4.4-10.8) 10^3/uL RBC (4.36-5.78) 10^6/uL Hgb (13.5-17.5) g/dL Hct (40.0-50.0) % MCV (80-95) fL MCH (27.0-33.0) pg MCHC (32.0-36.0) % RDW (11.8-14.1) % Plt Count (130-400) 10^3/uL MPV (8.0-11.0) fL Immature Gran % Neutrophils % Lymphocytes % Monocytes % Eosinophils % Basophils % Nucleated RBC % (0.0-0.3) % Absolute Neutrophils (1.2-6.7) 10^3/uL Absolute Lymphocytes (1.2-3.4) 10^3/uL Absolute Monocytes (0.1-0.8) 10^3/uL Absolute Eosinophils (0.0-0.7) 10^3/uL Absolute Basophils (0.0-0.2) 10^3/uL APTT (21.0-27.5) sec 27.2 Sodium (136-145) mmol/L 140 Potassium (3.5-5.1) mmol/L 4.8 Chloride (98-107) mmol/L 104 Carbon Dioxide (21.0-32.0) mmol/L 30.4 Anion Gap (3-11) mmol/L 5.6 BUN (7-18) mg/dL 29 H Creatinine (0.70-1.30) mg/dL 1.7 H Est GFR (CKD-EPI 2020) (mL/min/1.73m2) 43.10 Glucose (74-106) mg/dL 91 Calcium (8.5-10.1) mg/dL 9.1 Magnesium (1.8-2.4) mg/dL 2.0 Total Bilirubin (0.2-1.0) mg/dL 0.9 AST (15-37) U/L 25 ALT (16-63) U/L 52 Alkaline Phosphatase (46-116) U/L 129 H Troponin I (<or=60) ng/L < 50 Total Protein (6.4-8.2) g/dL 6.5 Albumin (3.4-5.0) g/dL 3.7 TSH (0.36-3.74) uIU/mL 1.38 COVID-19 Source Range/Units 07/06/22 07/06/22 12:18 13:20 WBC (4.4-10.8) 10^3/uL 8.31 RBC (4.36-5.78) 10^6/uL 5.57 Hgb (13.5-17.5) g/dL 16.9 Hct (40.0-50.0) % 52.0 H MCV (80-95) fL 93 MCH (27.0-33.0) pg 30.3 MCHC (32.0-36.0) % 32.5 RDW (11.8-14.1) % 14.0 Plt Count (130-400) 10^3/uL 163 MPV (8.0-11.0) fL 10.3 Immature Gran % 0.4 Neutrophils % 64.7 Lymphocytes % 26.5 Monocytes % 7.0 Eosinophils % 0.7 Basophils % 0.7 Nucleated RBC % (0.0-0.3) % 0.0 Absolute Neutrophils (1.2-6.7) 10^3/uL 5.38 Absolute Lymphocytes (1.2-3.4) 10^3/uL 2.20 Absolute Monocytes (0.1-0.8) 10^3/uL 0.58 Absolute Eosinophils (0.0-0.7) 10^3/uL 0.06 Absolute Basophils (0.0-0.2) 10^3/uL 0.06 APTT (21.0-27.5) sec Sodium (136-145) mmol/L Potassium (3.5-5.1) mmol/L Chloride (98-107) mmol/L Carbon Dioxide (21.0-32.0) mmol/L Anion Gap (3-11) mmol/L BUN (7-18) mg/dL Creatinine (0.70-1.30) mg/dL Est GFR (CKD-EPI 2020) (mL/min/1.73m2) Glucose (74-106) mg/dL Calcium (8.5-10.1) mg/dL Magnesium (1.8-2.4) mg/dL Total Bilirubin (0.2-1.0) mg/dL AST (15-37) U/L ALT (16-63) U/L Alkaline Phosphatase (46-116) U/L Troponin I (<or=60) ng/L Total Protein (6.4-8.2) g/dL Albumin (3.4-5.0) g/dL TSH (0.36-3.74) uIU/mL COVID-19 Source Nasal/Nares HPI General Mode of arrival: ambulatory . Date/Time Provider Initiated Documentation: 07/06/22 12:17 . Limitations to Documentation: no limitations . Information obtained by: patient . HPI Narrative: 71-year-old male with multiple medical problems including history of lymphoma, recently treated with Imbruvica, discontinued when he started Eliquis for treatment of DVT and pulmonary embolism approximately 2 months ago, sent from follow-up visit at outpatient cancer center with concern for arrhythmia. Patient denies palpitation. He has no chest pain. He does note intermittent chronic shortness of breath with exertion. No shortness of breath at rest. He has no associated new swelling but does note chronic swelling in his left leg - unchanged. No associated calf pain. Of note, lymphoma is currently in remission. He did have a recent US that revealed lesion in his thyroid. Related Data Home Medications Medication Instructions Recorded Confirmed acyclovir 400 mg tablet 400 mg PO BID 02/17/21 07/06/22 divalproex 250 mg tablet,delayed 250 mg PO BID 02/17/21 07/06/22 release (Depakote) famotidine 20 mg tablet (Pepcid) 20 mg PO DAILY 02/17/21 07/06/22 melatonin 3 mg capsule 9 mg PO HS PRN 02/17/21 07/06/22 ondansetron HCl 8 mg tablet 8 mg PO Q8H PRN nausea and vomiting 02/17/21 07/06/22 loratadine 10 mg tablet (Allergy 10 mg PO DAILY #90 tabs 03/30/22 07/06/22 Relief (loratadine)) sulfacetamide sodium 10 % eye 1 drp ophthalmic (eye) Q4H #15 mL 05/26/22 07/06/22 drops (Bleph-10) amlodipine 10 mg tablet 10 mg PO DAILY #90 tabs 06/01/22 07/06/22 apixaban 5 mg tablet (Eliquis) 5 mg PO BID 07/01/22 07/06/22 losartan 50 mg tablet 50 mg PO DAILY #90 tabs 07/01/22 07/06/22 triamcinolone acetonide 0.1 % See Rx Instructions .Route 07/06/22 07/06/22 topical ointment .COMPLEX PRN Previous Rx's Medication Instructions Recorded loratadine 10 mg tablet (Allergy 10 mg PO DAILY #90 tabs 03/30/22 Relief (loratadine)) sulfacetamide sodium 10 % eye 1 drp ophthalmic (eye) Q4H #15 mL 05/26/22 drops (Bleph-10) amlodipine 10 mg tablet 10 mg PO DAILY #90 tabs 06/01/22 losartan 50 mg tablet 50 mg PO DAILY #90 tabs 07/01/22 Allergies Allergy/AdvReac Type Severity Reaction Status Date / Time No Known Allergies Allergy Verified 07/01/22 09:30 General Stated Complaint: GenMedical PERRY: 3 Review of Systems All systems reviewed & are unremarkable except as noted in HPI and below Constitutional Constitutional: Denies fever(s) Cardiovascular Cardiovascular: Denies chest pain PFSH All Active Problems (Updated 07/06/22 @ 16:17 by Wilman Hayes MD) Atrial fibrillation with rapid ventricular response (Acute) Deep vein thrombosis (DVT) of left lower extremity (Acute) CLL (chronic lymphocytic leukemia) (Acute) Acute kidney injury superimposed on chronic kidney disease (Acute) Primary SSAS DEVELOPER lymphoma (Acute) Dealt with by [facility] Hypertension (Chronic) MCI (mild cognitive impairment) (Acute) Elevated glucose (Acute) Anosmia (Chronic) Since chemotherapy 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) Status post stem cell transplant 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) Medical History (Updated 07/06/22 @ 16:17 by Wilman Hayes MD) Allergic rhinitis (06/02/15) Cerebrovascular disease CKD (chronic kidney disease) CVA (cerebral vascular accident) Depressive disorder Essential hypertension Essential hypertension (01/09/18) Incisional hernia Incisional hernia of anterior abdominal wall without obstruction or gangrene (02/21/17) Leukoencephalopathy Non-Hodgkin lymphoma Sexual function problem Transient global amnesia Varicocele right Surgical History EGD - MAC (06/05/18) History of stem cell transplant Laparotomy After perforation from ERCP S/P autologous bone marrow transplantation Ulnar Nerve Transposition Family History Mother , 93 No problems noted. Father , 74 AML (acute myeloblastic leukemia) Sister No problems noted. Brother Hyperlipidemia Maternal Grandfather Stroke Paternal Grandfather , 55 Lymphoma Maternal Grandmother , 90 Essential hypertension Paternal Grandmother , 90 No problems noted. Brother No problems noted. Brother No problems noted. Son No problems noted. Son No problems noted. 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 Pets and animals: Yes Pets and animals: cat(s) Sexually active: No Do you think of yourself as: straight/heterosexual Current gender identity: male What is your relationship status?: How often do you talk on the phone with friends or family?: three or more times per week How often do you get together with friends or relatives?: once per week Do you belong to any clubs or organized social groups?: yes Panel score (0-1 are the most socially isolated patients): 3 What type of physical activity do you participate in: other Details: PT,Gardening Duration: 30-45 minutes/day Frequency: 3-4 times per week Erica/Restorationist: Tenriism Special erica needs: No Seatbelt use: always Helmet use: Yes Helmet use: always Drive intox or ride w/intox local city driver: No Do you feel safe at home: Yes Do you feel safe in your relationship?: Yes Exam Const General: cooperative and no acute distress HENMT Mouth: moist mucous membranes Eyes Conjunctivae: normal conjunctivae Sclera: normal sclerae Neck Neck: trachea midline Thyroid: thyroid normal Resp Auscultation: clear to auscultation bilaterally, no rales, no rhonchi and no wheezes Cardio Rate: tachycardic Rhythm: abnormal rhythm irregularly irregular GI Palpation: soft, not firm, no guarding, no masses, not rigid and nontender Skin General skin exam: no rashes or lesions noted Neuro General: patient alert, patient awake, patient oriented x3 and tone normal Extrem General: no calf tenderness and edema Laterality: left Psych Appearance: grossly normal Mental Status: mental status grossly normal Speech and Movement: speech and movement normal Course Vital Signs Vital signs: Vital Signs Temperature 37.1 C 07/06/22 11:47 Pulse 138 H 07/06/22 11:47 Respiratory Rate 27 H 07/06/22 11:47 Blood Pressure 116/72 07/06/22 11:47 Pulse Oximetry 99 07/06/22 11:47 Temperature 37.1 C 07/06/22 11:47 Temperature Source Temporal Artery Scan 07/06/22 11:47 Pulse 138 H 07/06/22 11:47 Respiratory Rate 27 H 07/06/22 11:47 Respiratory Effort Non-Labored 07/06/22 12:32 Respiratory Depth Normal 07/06/22 12:32 Respiratory Pattern Normal 07/06/22 12:32 Blood Pressure 116/72 07/06/22 11:47 Blood Pressure Position Supine 07/06/22 11:47 Pulse Oximetry 99 07/06/22 11:47 Oxygen Delivery Method Room Air 07/06/22 11:47 Oxygen Flow Rate 0 07/06/22 11:47 Pain Level 0 07/06/22 11:47 Critical Care Time Critical Care Time Critical Care Time: Yes Total Critical Care Time: 40 Attestation: I spent greater than 40 minutes addressing this patient's immediate life threats. Please see MDM section of note. This time was spent engaged in work directly related to the patient's care, exclusive of separate procedures, and failure to initiate these interventions would have likely resulted in clinically significant or life threatening deterioration in the patient's condition.
[2022-07-06 13:01] LABS: Abs Immature Grans 0.03 10^3/uL (0.0-0.06); Absolute Basophil Count 0.06 10^3/uL (0.0-0.2); Absolute Eosinophil Count 0.06 10^3/uL (0.0-0.7); Absolute Monocyte Count 0.58 10^3/uL (0.1-0.8); Absolute Neutrophil Count 5.38 10^3/uL (1.2-6.7); Basophils % 0.7; Eosinophils % 0.7; HGB 16.9 g/dL (13.5-17.5); Immature Grans % 0.4; Lymphocytes % 26.5; MCH 30.3 pg (27.0-33.0); MCHC 32.5 % (32.0-36.0); MCV 93 fL (80-95); MPV 10.3 fL (8.0-11.0); Neutrophils % 64.7; Platelet Count 163 10^3/uL (130-400); RBC 5.57 10^6/uL (4.36-5.78); RDW-SD 48.7 fL; WBC 8.31 10^3/uL (4.4-10.8)
[2022-07-06] MEDS: dilTIAZem 25 MG/5 ML VIAL 10 MG IVP (13:10)
[2022-07-06] MEDS: dilTIAZem 125 MG in Normal Saline 100 ML IV (13:10)
[2022-07-06 13:24] LABS: Source Nasal/Nares
[2022-07-06 13:25] LABS: PTT Activated 27.2 sec (21.0-27.5)
[2022-07-06 13:38] LABS: ALT 52 U/L (16-63); AST 25 U/L (15-37); Albumin 3.7 g/dL (3.4-5.0); Alkaline Phosphatase 129 U/L (46-116); Anion Gap 5.6 mmol/L (3-11); BUN 29 mg/dL (7-18); Bilirubin, Total 0.9 mg/dL (0.2-1.0); CO2 30.4 mmol/L (21.0-32.0); CREATININE 1.7 mg/dL (0.70-1.30); Calcium 9.1 mg/dL (8.5-10.1); Chloride 104 mmol/L (98-107); Glucose 91 mg/dL (74-106); Potassium 4.8 mmol/L (3.5-5.1); Sodium 140 mmol/L (136-145); Total Protein 6.5 g/dL (6.4-8.2); Troponin I < 50 ng/L (<or=60)
[2022-07-06 14:02] LABS: TSH (W/Ref FT4) 1.38 uIU/mL (0.36-3.74)
[2022-07-06] MEDS: dilTIAZem 30 MG TAB PO ×3 (14:42→22:05)
--- NOTE | 2022-07-06 16:02 | W.PM.HP.N ---
Date of service: 07/06/22 Time of Service: 16:02 Assessment and Plan Assessment and plan (1) Atrial fibrillation with rapid ventricular response: Status: Acute Assessment and plan: New onset atrial fibrillation with rapid ventricular response. He has slowed down nicely with Cardizem IV and now p.o. We will continue to monitor his heart rate on telemetry on [facility]. No signs of congestive heart failure at this time. (2) Deep vein thrombosis (DVT) of left lower extremity: Status: Acute Assessment and plan: Recent DVT in the left leg, April 2022. He has been on Eliquis since that time. He does have residual swelling in that leg. Continue the Eliquis. (3) CLL (chronic lymphocytic leukemia): Status: Acute Assessment and plan: Followed by [facility]. He had been on a kinase inhibitor but that was stopped when he started on the Eliquis. We will continue to hold. (4) Acute kidney injury superimposed on chronic kidney disease: Status: Acute Assessment and plan: Creatinine at 1.7. Lisinopril was recently stopped in favor of losartan. We will continue losartan with parameters. 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 That has been stable. He does have some evidence of cognitive decline. (6) MCI (mild cognitive impairment): Status: Acute Assessment and plan: Mild cognitive impairment perhaps on the basis of the FLIGHT TEST DATA ACQUISITION TECHNICIAN lymphoma. He lives with his who is very supportive. (7) Chronic lymphoid leukemia in remission: Status: Chronic Assessment and plan: CLL is stable. (8) Cardiomyopathy: Status: Acute Assessment and plan: His echocardiogram that was done as part of his work-up for new onset A. fib shows a marked cardiomyopathy with an EF of 13%. His rate was well controlled at the time of the study. Further work-up and trending of his troponins are indicated. History of Present Illness History of Present Illness Chief Complaint: Atrial fibrillation/rapid ventricular response Narrative: This is a 71-year-old man with a history of CLL, FLIGHT TEST DATA ACQUISITION TECHNICIAN lymphoma/non-Hodgkin's lymphoma that was seeing his oncologist today at the [facility]. He was found to have a rapid heart rate that was irregular and was referred to the emergency room. In the emergency room he was found to have atrial fibrillation with a heart rate of 1 20-1 40. He received IV diltiazem and was placed on a diltiazem drip. His heart rate came down into the 98-100 range and he felt fine. He was transitioned to oral diltiazem 30 mg every 6 hours and is transferred to the [facility] floor on telemetry for further monitoring. He is on Eliquis for a recent DVT/PE. He has never had atrial fibrillation in the past. Review of Systems Narrative: Patient was not aware of any palpitations. He thought he may have been feeling a little bit weak. He has no other constitutional symptoms. No upper respiratory symptoms, no chest pain. No cough. No shortness of breath. He does note that since his pulmonary embolism he has to concentrate and take a deep breath occasionally. He has had no abdominal pain or tenderness. He is having normal bowel movements. He has chronic left leg swelling since an accident involving his left lower leg. 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 DATA ACQUISITION TECHNICIAN lymphoma (Acute) Dealt with by [facility] Hypertension (Chronic) MCI (mild cognitive impairment) (Acute) Elevated glucose (Acute) Anosmia (Chronic) Since chemotherapy 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) Status post stem cell transplant 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) Medical History (Updated 07/06/22 @ 16:23 by Benjamin Najera MD) Allergic rhinitis (06/02/15) Cerebrovascular disease CKD (chronic kidney disease) CVA (cerebral vascular accident) Depressive disorder Essential hypertension Essential hypertension (01/09/18) Incisional hernia Incisional hernia of anterior abdominal wall without obstruction or gangrene (02/21/17) Leukoencephalopathy Non-Hodgkin lymphoma Sexual function problem Transient global amnesia Varicocele right Surgical History EGD - MAC (06/05/18) History of stem cell transplant Laparotomy After perforation from ERCP S/P autologous bone marrow transplantation Ulnar Nerve Transposition Family History Mother , 93 No problems noted. Father , 74 AML (acute myeloblastic leukemia) Sister No problems noted. Brother Hyperlipidemia Maternal Grandfather Stroke Paternal Grandfather , 55 Lymphoma Maternal Grandmother , 90 Essential hypertension Paternal Grandmother , 90 No problems noted. Brother No problems noted. Brother No problems noted. Son No problems noted. Son No problems noted. 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 Pets and animals: Yes Pets and animals: cat(s) Sexually active: No Do you think of yourself as: straight/heterosexual Current gender identity: male What is your relationship status?: How often do you talk on the phone with friends or family?: three or more times per week How often do you get together with friends or relatives?: once per week Do you belong to any clubs or organized social groups?: yes Panel score (0-1 are the most socially isolated patients): 3 What type of physical activity do you participate in: other Details: PT,Gardening Duration: 30-45 minutes/day Frequency: 3-4 times per week Erica/Congregational: [employer] Special erica needs: No Seatbelt use: always Helmet use: Yes Helmet use: always Drive intox or ride w/intox special events driver: No Do you feel safe at home: Yes Do you feel safe in your relationship?: Yes Meds Allergies and Home Medications Allergies Allergy/AdvReac Type Severity Reaction Status Date / Time No Known Allergies Allergy Verified 07/01/22 09:30 Home Medications Medication Instructions Recorded Confirmed Type acyclovir 400 mg tablet 400 mg PO BID 02/17/21 07/06/22 History divalproex 250 mg tablet,delayed 250 mg PO BID 02/17/21 07/06/22 History release (Depakote) famotidine 20 mg tablet (Pepcid) 20 mg PO DAILY 02/17/21 07/06/22 History melatonin 3 mg capsule 9 mg PO HS PRN 02/17/21 07/06/22 History ondansetron HCl 8 mg tablet 8 mg PO Q8H PRN nausea and vomiting 02/17/21 07/06/22 History loratadine 10 mg tablet (Allergy 10 mg PO DAILY #90 tabs 03/30/22 07/06/22 Rx Relief (loratadine)) sulfacetamide sodium 10 % eye 1 drp ophthalmic (eye) Q4H #15 mL 05/26/22 07/06/22 Rx drops (Bleph-10) amlodipine 10 mg tablet 10 mg PO DAILY #90 tabs 06/01/22 07/06/22 Rx apixaban 5 mg tablet (Eliquis) 5 mg PO BID 07/01/22 07/06/22 History losartan 50 mg tablet 50 mg PO DAILY #90 tabs 07/01/22 07/06/22 Rx triamcinolone acetonide 0.1 % See Rx Instructions .Route 07/06/22 07/06/22 History topical ointment .COMPLEX PRN Exam Narrative Exam Narrative: He is quite pleasant and in no apparent distress. His mood and affect were perhaps a little more bland than I would expect given the situation. His was present. He was able to give a good history. He did not appear in any respiratory distress. He could breathe normally in the supine position and could pull himself to upright without difficulty. His lung sounds were clear on the right and left. Heart sounds were irregularly irregular. No murmur was appreciated though there was a lot of ambient noise in the ED. His abdominal exam was overall soft and nontender. No HSM was detected. The lower extremity notable for a scar in the left lower lateral ankle region that was well-healed he had 3+ edema on that side but it otherwise appeared to be well perfused. He had 1+ edema on the right ankle. Neurologically he could move all extremities without apparent decrement of function. Results Imaging Additional studies: Echocardiogram preliminary report shows marked decrease in LVEF from prior study. He was 55% now estimated at 13%. The right ventricle appears to be abnormal at the apex. Small pericardial effusion. EKG: report reviewed (Atrial fibrillation rate 72 to 97 with overall low voltage. Q in V2 through V5. Occasional PVC) and image reviewed Labs Result diagrams: 07/06/22 12:18 07/06/22 12:18 Labs: Laboratory Results - last 24 hr 07/06/22 07/06/22 07/06/22 12:17 12:17 12:18 WBC RBC Hgb Hct MCV MCH MCHC RDW Plt Count MPV Immature Gran % Neutrophils % Lymphocytes % Monocytes % Eosinophils % Basophils % Nucleated RBC % Absolute Neutrophils Absolute Lymphocytes Absolute Monocytes Absolute Eosinophils Absolute Basophils APTT 27.2 Sodium 140 Potassium 4.8 Chloride 104 Carbon Dioxide 30.4 Anion Gap 5.6 BUN 29 H Creatinine 1.7 H Est GFR (CKD-EPI 2020) 43.10 Glucose 91 Calcium 9.1 Magnesium 2.0 Total Bilirubin 0.9 AST 25 ALT 52 Alkaline Phosphatase 129 H Troponin I < 50 Total Protein 6.5 Albumin 3.7 TSH 1.38 COVID-19 Source 07/06/22 07/06/22 12:18 13:20 WBC 8.31 RBC 5.57 Hgb 16.9 Hct 52.0 H MCV 93 MCH 30.3 MCHC 32.5 RDW 14.0 Plt Count 163 MPV 10.3 Immature Gran % 0.4 Neutrophils % 64.7 Lymphocytes % 26.5 Monocytes % 7.0 Eosinophils % 0.7 Basophils % 0.7 Nucleated RBC % 0.0 Absolute Neutrophils 5.38 Absolute Lymphocytes 2.20 Absolute Monocytes 0.58 Absolute Eosinophils 0.06 Absolute Basophils 0.06 APTT Sodium Potassium Chloride Carbon Dioxide Anion Gap BUN Creatinine Est GFR (CKD-EPI 2020) Glucose Calcium Magnesium Total Bilirubin AST ALT Alkaline Phosphatase Troponin I Total Protein Albumin TSH COVID-19 Source Nasal/Nares Last Vital Signs Temp 37.1 C 07/06/22 11:47 Pulse 88 07/06/22 14:16 Resp 18 07/06/22 14:20 BP 93/44 L 07/06/22 14:16 Pulse Ox 97 07/06/22 14:20
[2022-07-06 16:51] LABS: COVID-19 PCR Negative (Negative)
--- NOTE | 2022-07-06 17:49 | NUR.NOTE ---
Nursing Note: Naomi, #[phone]
[2022-07-06] MEDS: Apixaban 5 MG TAB PO (20:49)
[2022-07-06] MEDS: Divalproex 250 MG TABEC PO (20:49)
[2022-07-06] MEDS: Acyclovir 400 MG TAB PO (20:49)
[2022-07-06 22:39] LABS: Troponin I < 50 ng/L (<or=60)
[2022-07-07] VITALS (9 sets, daily range): BP systolic 104–126; BP diastolic 54–88; PULSE 66–106; RESP 16–18; TEMP 36.3–36.8; O2SAT 96–98
--- NOTE | 2022-07-07 | DI.RAD_ITS ---
Exam(s) XR PORTABLE CHEST AP EXAM: XR PORTABLE CHEST AP CLINICAL HISTORY: ?CHF TECHNIQUE: 2D digital imaging was performed. COMPARISON: No exams were available for comparison FINDINGS: LUNGS: Clear. No pleural abnormality seen. HEART: Normal. AORTA: Normal. BONES: Unremarkable for age. Soft tissues: Unremarkable. IMPRESSION: No acute findings. DATA REPOSITORY: RADIATION DOSE DELIVERED:
[2022-07-07 06:30] LABS: Abs Immature Grans 0.02 10^3/uL (0.0-0.06); Absolute Basophil Count 0.07 10^3/uL (0.0-0.2); Absolute Eosinophil Count 0.15 10^3/uL (0.0-0.7); Absolute Lymphocyte Count 2.01 10^3/uL (1.2-3.4); Absolute Monocyte Count 0.68 10^3/uL (0.1-0.8); Absolute Neutrophil Count 3.47 10^3/uL (1.2-6.7); Basophils % 1.1; Eosinophils % 2.3; Immature Grans % 0.3; Lymphocytes % 31.4; MCH 30.9 pg (27.0-33.0); MCHC 33.3 % (32.0-36.0); MCV 93 fL (80-95); MPV 10.4 fL (8.0-11.0); Monocytes % 10.6; Neutrophils % 54.3; Platelet Count 148 10^3/uL (130-400); RBC 5.17 10^6/uL (4.36-5.78); RDW 13.9 % (11.8-14.1); RDW-SD 48.1 fL
[2022-07-07 06:38] LABS: Anion Gap 6.9 mmol/L (3-11); BUN 29 mg/dL (7-18); CO2 27.1 mmol/L (21.0-32.0); CREATININE 1.7 mg/dL (0.70-1.30); Calcium 8.8 mg/dL (8.5-10.1); Chloride 105 mmol/L (98-107); Glucose 86 mg/dL (74-106); Potassium 4.7 mmol/L (3.5-5.1); Sodium 139 mmol/L (136-145)
[2022-07-07] MEDS: Acyclovir 400 MG TAB PO ×2 (07:59→20:15)
[2022-07-07] MEDS: dilTIAZem 30 MG TAB PO (08:00)
[2022-07-07] MEDS: Divalproex 250 MG TABEC PO ×2 (08:01→20:15)
[2022-07-07] MEDS: Loratidine 10 MG TAB PO (08:01)
[2022-07-07] MEDS: Famotidine 20 MG TAB PO (08:01)
[2022-07-07] MEDS: Losartan 50 MG TAB PO (08:02)
[2022-07-07] MEDS: Apixaban 5 MG TAB PO ×2 (08:02→20:15)
[2022-07-07] MEDS: Triamcinolone 0.1% CR 15 GM TUBE TP ×2 (08:03→14:20)
[2022-07-07] MEDS: Normal Saline Flush 10 ML SYR IVP (08:05)
[2022-07-07] MEDS: Metoprolol 12.5 MG TAB PO ×3 (08:16→20:15)
--- NOTE | 2022-07-07 08:44 | W.CARDCONSUL ---
Date of service: 07/07/22 Time of Service: 08:44 Assessment and Plan Assessment and plan (1) Cardiomyopathy: Status: Acute Assessment and plan: The patient has a newly discovered cardiomyopathy. It is quite possible that this is on the basis of tachycardia with poorly controlled atrial fibrillation. He should be on guideline directed medical therapy. This would include metoprolol succinate (or bisoprolol or carvedilol) and HUMBERTO inhibitor (or angiotensin receptor cherelle or Entresto, if the latter is affordable), low-dose spironolactone. At present he appears euvolemic and does not seem to require diuresis. I would recommend a chest x-ray for completeness. I see no indication to do an ischemic evaluation at present (2) Atrial fibrillation with rapid ventricular response: Status: Acute Assessment and plan: Heart rate is currently controlled. Patient has no symptoms referable to the dysrhythmia and duration is currently unclear. Uncontrolled rates with atrial fibrillation are known to cause LV dysfunction, see above (3) Hypertension: Status: Chronic Assessment and plan: Adequate blood pressure. He should be on HUMBERTO inhibitor or angiotensin receptor cherelle or Entresto given his LV dysfunction. If necessary amlodipine could be reduced to rule out guideline directed medical therapy He will need cardiology follow-up after discharge from the hospital Qualifiers: Hypertension type: essential hypertension Qualified Code(s): I10 - Essential (primary) hypertension History of Present Illness History of Present Illness Chief Complaint: Irregular heartbeat Narrative: This is a 71-year-old man who has a history of lymphoma for which he is followed by oncology. He went for a routine appointment there and was found to have an irregular heart rate. He was referred to the emergency room where atrial fibrillation with a mildly elevated ventricular response was noted. Heart rates reportedly were 1 20-1 40. He was given intravenous diltiazem and admitted to the hospital. He has already been anticoagulated with Eliquis because of a prior deep venous thrombophlebitis and a pulmonary embolus. He has been transitioned to what appears to be metoprolol tartrate low-dose for heart rate control. An echocardiogram was performed. This disclosed diffuse left ventricular dysfunction with an ejection fraction of approximately 20%. There was also right ventricular dysfunction. Additionally had a small circumferential pericardial effusion. The LV dysfunction was new compared to 2020. EKG shows atrial fibrillation low voltage poor R wave progression no acute changes other than rhythm Patient is a fair historian. He denies any prior cardiac history. He denies being short of breath. No chest x-ray was performed in the emergency room Review of Systems Cardiovascular Comments: Patient denies palpitations chest discomfort or difficulty breathing. He has not been dizzy or lightheaded. 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 lymphoma (Acute) Dealt with by [facility] Hypertension (Chronic) MCI (mild cognitive impairment) (Acute) Elevated glucose (Acute) Anosmia (Chronic) Since chemotherapy 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) Status post stem cell transplant 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) Medical History (Updated 07/06/22 @ 16:23 by Benjamin Najera MD) Allergic rhinitis (06/02/15) Cerebrovascular disease CKD (chronic kidney disease) CVA (cerebral vascular accident) Depressive disorder Essential hypertension Essential hypertension (01/09/18) Incisional hernia Incisional hernia of anterior abdominal wall without obstruction or gangrene (02/21/17) Leukoencephalopathy Non-Hodgkin lymphoma Sexual function problem Transient global amnesia Varicocele right Surgical History EGD - MAC (06/05/18) History of stem cell transplant Laparotomy After perforation from ERCP S/P autologous bone marrow transplantation Ulnar Nerve Transposition Family History Mother , 93 No problems noted. Father , 74 AML (acute myeloblastic leukemia) Sister No problems noted. Brother Hyperlipidemia Maternal Grandfather Stroke Paternal Grandfather , 55 Lymphoma Maternal Grandmother , 90 Essential hypertension Paternal Grandmother , 90 No problems noted. Brother No problems noted. Brother No problems noted. Son No problems noted. Son No problems noted. 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 Pets and animals: Yes Pets and animals: cat(s) Sexually active: No Do you think of yourself as: straight/heterosexual Current gender identity: male What is your relationship status?: How often do you talk on the phone with friends or family?: three or more times per week How often do you get together with friends or relatives?: once per week Do you belong to any clubs or organized social groups?: yes Panel score (0-1 are the most socially isolated patients): 3 What type of physical activity do you participate in: other Details: PT,Gardening Duration: 30-45 minutes/day Frequency: 3-4 times per week Erica/Anglican: Yarsani Special erica needs: No Seatbelt use: always Helmet use: Yes Helmet use: always Drive intox or ride w/intox medical van driver: No Do you feel safe at home: Yes Do you feel safe in your relationship?: Yes Exam Const Other: Well-developed well-nourished no acute distress pleasant and alert Resp Other: Lungs are clear Cardio Other: No neck vein distention normal carotid upstrokes no bruits heart is irregularly irregular distant rate is currently controlled no gallop Extrem Other: 1+ edema Results Last Vital Signs Temp 36.3 C L 07/07/22 07:40 Pulse 88 07/07/22 07:40 Resp 18 07/07/22 07:40 BP 126/79 07/07/22 07:40 Pulse Ox 96 07/07/22 07:40 Labs Result diagrams: 07/07/22 05:50 07/07/22 05:50 Labs: Laboratory Results - last 24 hr 07/06/22 07/06/22 07/06/22 12:17 12:17 12:18 WBC RBC Hgb Hct MCV MCH MCHC RDW Plt Count MPV Immature Gran % Neutrophils % Lymphocytes % Monocytes % Eosinophils % Basophils % Nucleated RBC % Absolute Neutrophils Absolute Lymphocytes Absolute Monocytes Absolute Eosinophils Absolute Basophils APTT 27.2 Sodium 140 Potassium 4.8 Chloride 104 Carbon Dioxide 30.4 Anion Gap 5.6 BUN 29 H Creatinine 1.7 H Est GFR (CKD-EPI 2020) 43.10 Glucose 91 Calcium 9.1 Magnesium 2.0 Total Bilirubin 0.9 AST 25 ALT 52 Alkaline Phosphatase 129 H Troponin I < 50 Total Protein 6.5 Albumin 3.7 TSH 1.38 COVID-19 Source SARS-CoV-2 (PCR) 07/06/22 07/06/22 07/06/22 12:18 13:20 22:10 WBC 8.31 RBC 5.57 Hgb 16.9 Hct 52.0 H MCV 93 MCH 30.3 MCHC 32.5 RDW 14.0 Plt Count 163 MPV 10.3 Immature Gran % 0.4 Neutrophils % 64.7 Lymphocytes % 26.5 Monocytes % 7.0 Eosinophils % 0.7 Basophils % 0.7 Nucleated RBC % 0.0 Absolute Neutrophils 5.38 Absolute Lymphocytes 2.20 Absolute Monocytes 0.58 Absolute Eosinophils 0.06 Absolute Basophils 0.06 APTT Sodium Potassium Chloride Carbon Dioxide Anion Gap BUN Creatinine Est GFR (CKD-EPI 2020) Glucose Calcium Magnesium Total Bilirubin AST ALT Alkaline Phosphatase Troponin I < 50 Total Protein Albumin TSH COVID-19 Source Nasal/Nares SARS-CoV-2 (PCR) Negative 07/07/22 07/07/22 05:50 05:50 WBC 6.40 RBC 5.17 Hgb 16.0 Hct 48.0 MCV 93 MCH 30.9 MCHC 33.3 RDW 13.9 Plt Count 148 MPV 10.4 Immature Gran % 0.3 Neutrophils % 54.3 Lymphocytes % 31.4 Monocytes % 10.6 Eosinophils % 2.3 Basophils % 1.1 Nucleated RBC % 0.0 Absolute Neutrophils 3.47 Absolute Lymphocytes 2.01 Absolute Monocytes 0.68 Absolute Eosinophils 0.15 Absolute Basophils 0.07 APTT Sodium 139 Potassium 4.7 Chloride 105 Carbon Dioxide 27.1 Anion Gap 6.9 BUN 29 H Creatinine 1.7 H Est GFR (CKD-EPI 2020) 43.10 Glucose 86 Calcium 8.8 Magnesium Total Bilirubin AST ALT Alkaline Phosphatase Troponin I Total Protein Albumin TSH COVID-19 Source SARS-CoV-2 (PCR)
--- NOTE | 2022-07-07 13:33 | PDOC.CMIN ---
- If Service Date Differs Date of service: 07/07/22 Time of Service: 13:33 Care Management Initial Assess REASON FOR HOSPITALIZATION:: Atrial fibrillation with RVR PAST MEDICAL HISTORY/PAST SURGICAL HISTORY:: All Active Problems (Updated 07/06/22 @ 16:23 by Benjamin Najera MD). Cardiomyopathy (Acute). Atrial fibrillation with rapid ventricular response (Acute). Deep vein thrombosis (DVT) of left lower extremity (Acute). CLL (chronic lymphocytic leukemia) (Acute). Acute kidney injury superimposed on chronic kidney disease (Acute). 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 Dealt with by [facility]. Hypertension (Chronic). MCI (mild cognitive impairment) (Acute). Elevated glucose (Acute). Anosmia (Chronic). Since chemotherapy. 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). Status post stem cell transplant. 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 Medical History (Updated 07/06/22 @ 16:23 by Benjamin Najera MD). Allergic rhinitis (06/02/15). Cerebrovascular disease. CKD (chronic kidney disease). CVA (cerebral vascular accident). Depressive disorder. Essential hypertension. Essential hypertension (01/09/18). Incisional hernia. Incisional hernia of anterior abdominal wall without obstruction or gangrene (02/21/17). Leukoencephalopathy. Non-Hodgkin lymphoma. Sexual function problem. Transient global amnesia. Varicocele. right. Surgical History . EGD - MAC (06/05/18). History of stem cell transplant. Laparotomy. After perforation from ERCP. S/P autologous bone marrow transplantation. Ulnar Nerve Transposition PREVIOUS FUNCTIONAL STATUS/SOCIAL/FAMILY SUPPORTS:: Win Dejesus) lives in a single family home in [place], [place] with his Naomi. 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 His was a teacher also. Between them, Riley and Naomi have 5 children and several grandchildren, most of whom are in the area. Riley describes his family as very supportive. He is independent and active at baseline. CURRENT FUNCTIONAL STATUS:: Riley was sitting up in a chair visiting with his Naomi when CM met with him. They were both pleasant and engaged easily with CM. Riley indicated that he was hoping that he would be discharged today. He has many questions but had not seen the doctor yet. CM assured him that his provider would be in this afternoon and answer his questions. ADVANCE DIRECTIVES:: On file. [facility] Naomi Mitchell Has patient been provided with info about the portal/API?: Yes Did the patient sign up for the portal?: Yes (previously) CODE STATUS:: Full Code INSURANCE COVERAGE / FINANCIAL ISSUES:: [place] medicare Advantage CURRENT HOME/COMMUNITY SERVICES/EQUIPMENT:: none PRIMARY CARE PHYSICIAN:: Geovanni Luna POTENTIAL DISCHARGE NEEDS:: follow up with PCP, cardiology and plan of care PATIENT/FAMILY EDUCATION NEEDS:: Review of discharge instructions, limitations, follow up plan, activity, Ask Me Three TRANSPORTATION:: via private vehicle with family PLAN:: Riley will likely be discharged home with no new services. He will follow up with his PCP and discharge plan of care and transport via private vehicle with his .. CM will continue to support patient, family and discharge planning needs.
[2022-07-07] MEDS: Levalbuterol HFA 15 GM INH 2 PUFF IH (18:26)
--- NOTE | 2022-07-07 18:50 | PGE_ITS ---
Date of Service Date of service: 07/07/22 Time of Service: 18:50 Assessment and Plan Assessment and plan (1) Atrial fibrillation with rapid ventricular response: Status: Acute Assessment and plan: New onset atrial fibrillation. Rates are better. Transitioned to beta blockers. Will monitor on tele overnight. If Rates controlled, would switch to long acting metoprolol in am. Anticipate discharge home tomorrow with a cardiac event recorder and cardiology follow up. (2) Cardiomyopathy: Status: Acute Assessment and plan: LVEF of 13% on echo, possibly tachycardia-related. Will need cardiology follow up. No immediate need for ischemic workup. (3) Deep vein thrombosis (DVT) of left lower extremity: Status: Acute Assessment and plan: Present on admission and PE. Continue eliquis. (4) CLL (chronic lymphocytic leukemia): Status: Acute Assessment and plan: Follow up as outpatient. (5) Acute kidney injury superimposed on chronic kidney disease: Status: Acute Assessment and plan: Creatinine stable. Continue losartan. (6) Primary RELAY MECHANIC lymphoma: Status: Acute Assessment and plan: On chemotherapy. The patient recognizes a memory deficit. Follow up as outpatient. (7) MCI (mild cognitive impairment): Status: Acute Assessment and plan: May be related to above. Follow up as outpatient. (8) Chronic lymphoid leukemia in remission: Status: Chronic Assessment and plan: CLL is stable. Follow up as outpatient. (9) Discharge planning issues: Status: Acute Assessment and plan: Full code. Anticipate discharge home tomorrow. Subjective Subjective Interval history since last seen: Remains in Afib with HR 77-136, but mostly in the 90s. Evaluated by cardiology. Dr Benítez recommended transitioning the patient to beta blockers from calcium channel blockers, adding randy vs arb vs entresto and spironolactone. The patient reports some shortness of breath. He states this happens to him at home too and he waits and it passes. Denies dizziness, chest pain, nausea. States his left leg has been more swollen than his right for at least two years. He does not remember if he has had a recent doppler of his LEs. It appears that he did in our computer system in 05/06. Exam Narrative Exam Narrative: General: Pleasant male who is A&Ox3, sitting comfortably in a chair, on RA, no dyspnea/tachypnea/cyanosis. HEENT: EOMI, MMM Heart: irregularly irregular rhythm Lungs: CTAB Abdomen: soft, nontender, nondistended Extremities: +1 RLE edema, +2 LLE edema Objective Last Vital Signs Temp 36.3 C L 07/07/22 15:22 Pulse 66 07/07/22 15:22 Resp 16 07/07/22 15:22 BP 122/86 07/07/22 15:22 Pulse Ox 97 07/07/22 15:22 Laboratory Results - last 24 hr 07/06/22 07/07/22 07/07/22 22:10 05:50 05:50 WBC 6.40 RBC 5.17 Hgb 16.0 Hct 48.0 MCV 93 MCH 30.9 MCHC 33.3 RDW 13.9 Plt Count 148 MPV 10.4 Immature Gran % 0.3 Neutrophils % 54.3 Lymphocytes % 31.4 Monocytes % 10.6 Eosinophils % 2.3 Basophils % 1.1 Nucleated RBC % 0.0 Absolute Neutrophils 3.47 Absolute Lymphocytes 2.01 Absolute Monocytes 0.68 Absolute Eosinophils 0.15 Absolute Basophils 0.07 Sodium 139 Potassium 4.7 Chloride 105 Carbon Dioxide 27.1 Anion Gap 6.9 BUN 29 H Creatinine 1.7 H Est GFR (CKD-EPI 2020) 43.10 Glucose 86 Calcium 8.8 Troponin I < 50
[2022-07-08] VITALS (7 sets, daily range): BP systolic 88–128; BP diastolic 70–86; PULSE 58–106; RESP 16; TEMP 36.3–36.6; O2SAT 96–99
[2022-07-08] MEDS: Metoprolol 12.5 MG TAB PO ×2 (03:21→09:28)
[2022-07-08] MEDS: Divalproex 250 MG TABEC PO (08:23)
[2022-07-08] MEDS: Famotidine 20 MG TAB PO (08:23)
[2022-07-08] MEDS: Acyclovir 400 MG TAB PO (08:23)
[2022-07-08] MEDS: Loratidine 10 MG TAB PO (08:23)
[2022-07-08] MEDS: Apixaban 5 MG TAB PO (08:23)
[2022-07-08] MEDS: Normal Saline Flush 10 ML SYR IVP (09:26)
[2022-07-08] MEDS: Triamcinolone 0.1% CR 15 GM TUBE TP (09:26)
[2022-07-08] MEDS: Losartan 50 MG TAB PO (09:28)
[2022-07-08] MEDS: Metoprolol CR 50 MG TABCR PO (12:39)
--- NOTE | 2022-07-08 13:46 | W.PM.DS.N ---
Date of service: 07/08/22 Time of Service: 13:46 DS: Diagnosis Discharge Diagnosis (1) Atrial fibrillation with rapid ventricular response: Status: Acute (2) Cardiomyopathy: Status: Acute (3) Acute systolic CHF (congestive heart failure): Status: Acute Asessment and Plan: LVEF of 20% (4) Bronchospasm: Status: Acute (5) Deep vein thrombosis (DVT) of left lower extremity: Status: Acute (6) CLL (chronic lymphocytic leukemia): Status: Acute (7) Acute kidney injury superimposed on chronic kidney disease: Status: Acute (8) Primary INFECTION PREVENTIONIST lymphoma: Status: Acute (9) MCI (mild cognitive impairment): Status: Acute (10) Chronic lymphoid leukemia in remission: Status: Chronic Discharge Plan Disposition Patient Disposition: HOME Condition: Serious Discharge Details Reason For Visit: AFIB with RVR Admit Date/Time: 07/06/22 13:09 Admit Provider: Benjamin aNjera Attending Provider: Benjamin Najera Primary Care Provider: Geovanni Luna Hospital Course Hospital Course: Mr Vega is a 71 year old male with PMHx of CLL, INFECTION PREVENTIONIST lymphoma/NHL, as well as hypertension and h/o DVT/PE on eliquis, who was a patient on [facility] hospitalist service from 07/06/22 until 07/08/22 having presented to [facility] ED from his oncologist's office with new onset rapid Afib. He was initially treated with cardizem bolus and drip before being converted to oral cardizem. However, when his echocardiogram came back revealing a new diagnosis of cardiomyopathy with LVEF of 20% with severe global hypokinesis. Cardiology was consulted and recommended treatment with guideline directed medical therapy. Etiology for cardiomyopathy was unclear, but was possibly thought to be due to long-standing tachycardia. He was switched from cardizem to metoprolol and is being discharged home on toprol XL 50 mg PO daily. He is already on losartan. His BP would not tolerate addition of aldactone at this time. His HR is controlled on metoprolol XL 50 mg daily - however, the patient is being discharged home with a cardiac event recorder to help monitor his heart rate. The patient will need to follow up with cardiology as outpatient. He is already on eliquis for the h/o DVT/PE. The patient did report a sensation of shortness of breath. He was, however, euvolemic. A trial of levalbuterol relieved his symptoms, and therefore bronchospasm is suspected. He is being discharged home with a prescription for a levalbulterol inhaler. He is medically stable for discharge. Care for patient as well as completion of his discharge summary on day of discharge took 45 minutes. Home Meds and New Rx's Prescriptions: New metoprolol succinate 50 mg Tablet Extended Release 24 Hr 50 mg PO DAILY Qty: 30 0RF levalbuterol tartrate 45 mcg/actuation Hfa Aerosol Inhaler 2 puff inhalation Q6H PRN PRN (Reason: shortness of breath or wheezing) Qty: 15 0RF Continued loratadine [Allergy Relief (loratadine)] 10 mg tablet 10 mg PO DAILY Qty: 90 3RF Eliquis 5 mg tablet 5 mg PO BID losartan 50 mg tablet 50 mg PO DAILY Qty: 90 0RF melatonin 3 mg capsule 9 mg PO HS PRN Label Comments: [place] [facility] [place] famotidine [Pepcid] 20 mg tablet 20 mg PO DAILY Label Comments: per [facility] [place] divalproex [Depakote] 250 mg tablet,delayed release (DR/EC) 250 mg PO BID Label Comments: per [facility] [place] acyclovir 400 mg tablet 400 mg PO BID Label Comments: per [facility] [place] ondansetron HCl 8 mg tablet 8 mg PO Q8H PRN (Reason: nausea and vomiting) Label Comments: per [facility] [place] sulfacetamide sodium [Bleph-10] 10 % drops 1 drp ophthalmic (eye) Q4H Qty: 15 0RF triamcinolone acetonide 0.1 % ointment See Rx Instructions .ROUTE .COMPLEX PRN Label Comments: APPLY TWICE DAILY TO THE AFFECTED AREAS OF LEGS FOR 14 DAYS, TAKE 1 WEEK OFF AND REPEAT NEEDED Rx Instructions: APPLY TWICE DAILY TO THE AFFECTED AREAS OF LEGS FOR 14 DAYS, TAKE 1 WEEK OFF AND REPEAT NEEDED Discontinued amlodipine 10 mg tablet 10 mg PO DAILY Qty: 90 3RF Discharge Instructions Instructions: Metoprolol (By mouth), Heart Failure (DC), A-fib (Atrial Fibrillation) (DC) Additional Instructions: Return to the hospital with any fever, bleeding, chest pain, or shortness of breath. Follow up with your PCP in 1-2 weeks. Follow up with cardiology. Stand Alone Forms: Nursing Discharge Form Referrals: Geovanni Luna NP [Primary Care Provider] - 07/15/22 11:40 am Hannah Benítez MD [ [facility] STAFF PHYSICIAN] - (Office will call you with appointment. ) Activity:: Activity as Tolerated Equipment/Supplies:: cardiac event recorder Diet:: Low Sodium Discharge Orders Discharge Orders: Discharge Order (Routine); Ordered 07/08/22 Ordered By: Chelsea Vega Other Ambulatory Orders: Cardiac Event Recorder (Routine) Timeframe: 1 Day Facility: [facility] - Location: Respiratory Therapy Ordered By: Chelsea Vega Discharge Data Discharge Date/Time-TO BE ENTERED AT DEPARTURE: 07/08/22 14:58 DS: Summary Time Spent with Patient providing and/or coordinating discharge services: Greater than 30 minutes Status at Discharge Functional status at discharge: independent ambulation Overall status at discharge: patient is back to baseline Mental Status: mental status grossly normal Speech and Movement: speech and movement normal Mood: congruent mood Affect: normal affect Exam Narrative Exam Narrative: General: Pleasant male who is A&Ox3, sitting comfortably in a chair, on RA, no dyspnea/tachypnea/cyanosis. HEENT: EOMI, MMM Heart: irregularly irregular rhythm Lungs: CTAB Abdomen: soft, nontender, nondistended Extremities: +1 RLE edema, +2 LLE edema Psych Mental Status: mental status grossly normal Speech and Movement: speech and movement normal Mood: congruent mood Affect: normal affect DS: Data Vitals/I&O Vitals and I&O: Vital Signs Temperature 36.6 C 07/08/22 12:35 Temperature Source Tympanic 07/08/22 12:35 Pulse 58 L 07/08/22 12:35 Pulse Rhythm Irregular 07/08/22 09:10 Pulse 94 H 07/06/22 16:01 Respiratory Rate 16 07/08/22 12:35 Respiratory Effort Non-Labored 07/08/22 09:10 Respiratory Depth Normal 07/08/22 09:10 Respiratory Pattern Normal 07/08/22 09:10 Blood Pressure 114/83 07/08/22 12:35 Blood Pressure Mean 108 07/06/22 16:00 Blood Pressure Position Supine 07/06/22 11:47 Pulse Oximetry 99 07/08/22 12:35 Oxygen Delivery Method Room Air 07/08/22 12:35 Oxygen Flow Rate 0 07/08/22 12:35 Pain Level 0 07/08/22 12:35 Comment 07/06/22 16:38 Intake & Output 07/07/22 07/08/22 07/08/22 23:59 11:59 23:59 Intake Total 200 / 570 210 / 210 Output Total Balance 199 / 569 210 / 210 Weight 87.8 kg Intake: IV Oral 200 / 560 200 / 200 Output: Urine Other: Urine Appearance Clear Clear Urine Odor None Comment per patient he voided in the toilet Voiding Methods Toilet Data Completed and Pending Completed studies during hospitalization [Text1]: CXR; No acute? findings. Echo: LV is normal in size. LVEF 20%, severe global hypokinesis, RV is mildly dilated. RV free wall is hypokinetic. RV apex is akinetic. There is mild biatrial enlargement. There is aortic valve sclerosis without significant stenosis. There is a small circumferential pericardial effusion. Biventricular systolic dysfunction and pericardial effusion are new since 02/26/2020. [facility] All Active Problems (Updated 07/08/22 @ 15:06 by Chelsea Vega MD) Acute systolic CHF (congestive heart failure) (Acute) Bronchospasm (Acute) Discharge planning issues (Acute) Cardiomyopathy (Acute) Atrial fibrillation with rapid ventricular response (Acute) Deep vein thrombosis (DVT) of left lower extremity (Acute) CLL (chronic lymphocytic leukemia) (Acute) Acute kidney injury superimposed on chronic kidney disease (Acute) Primary INFECTION PREVENTIONIST lymphoma (Acute) Dealt with by [facility] Hypertension (Chronic) MCI (mild cognitive impairment) (Acute) Elevated glucose (Acute) Anosmia (Chronic) Since chemotherapy 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) Status post stem cell transplant 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) Medical History (Updated 07/08/22 @ 15:06 by Chelsea Vega MD) Allergic rhinitis (06/02/15) Cerebrovascular disease CKD (chronic kidney disease) CVA (cerebral vascular accident) Depressive disorder Essential hypertension Essential hypertension (01/09/18) Incisional hernia Incisional hernia of anterior abdominal wall without obstruction or gangrene (02/21/17) Leukoencephalopathy Non-Hodgkin lymphoma Sexual function problem Transient global amnesia Varicocele right Surgical History EGD - MAC (06/05/18) History of stem cell transplant Laparotomy After perforation from ERCP S/P autologous bone marrow transplantation Ulnar Nerve Transposition Family History Mother , 93 No problems noted. Father , 74 AML (acute myeloblastic leukemia) Sister No problems noted. Brother Hyperlipidemia Maternal Grandfather Stroke Paternal Grandfather , 55 Lymphoma Maternal Grandmother , 90 Essential hypertension Paternal Grandmother , 90 No problems noted. Brother No problems noted. Brother No problems noted. Son No problems noted. Son No problems noted. 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 Pets and animals: Yes Pets and animals: cat(s) Sexually active: No Do you think of yourself as: straight/heterosexual Current gender identity: male What is your relationship status?: How often do you talk on the phone with friends or family?: three or more times per week How often do you get together with friends or relatives?: once per week Do you belong to any clubs or organized social groups?: yes Panel score (0-1 are the most socially isolated patients): 3 What type of physical activity do you participate in: other Details: PT,Gardening Duration: 30-45 minutes/day Frequency: 3-4 times per week Erica/Worship: Religious Special erica needs: No Seatbelt use: always Helmet use: Yes Helmet use: always Drive intox or ride w/intox rental car ferry driver: No Do you feel safe at home: Yes Do you feel safe in your relationship?: Yes
--- NOTE | 2022-07-08 14:30 | PDOC.CMDIS ---
- If Service Date Differs Date of service: 07/08/22 Time of Service: 14:30 LACE Index Scoring Tool - Questions: Length of Stay (in days): 2 Acuity (Admit via E.D.?): Yes Comorbidities: Cerebrovascular Disease, Any Tumor, Liver or Renal Disease E.D. Visits: 1 - Answers: Total Score: 11 Risk of Readmission: High Risk Care Management Discharge Reason for Hospitalization: Atrial fibrillation with RVR Discharge Plan: Riley will be discharged home with no new services. He will follow up with his PCP and discharge plan of care and transport via private vehicle with his . Patient/Family Education Needs: Review of discharge instructions, limitations, follow up plan, activity, Ask Me Three
== END 2022-07-08 14:58 | disposition home or self-care (01) | DRG 308 ==
LOC: ER 16:17 → MS 16:34
PROVIDERS: Admitting Provider Family Medicine; Emergency Provider Student in an Organized Health Care Education/Training Program; PCP Nurse Practitioner Family; Visit Provider Family Medicine
DX: I48.91 Unspecified atrial fibrillation (principal); I50.21 Acute systolic (congestive) heart failure; I82.402 Acute embolism and thrombosis of unspecified deep veins of left lower extremity; N17.9 Acute kidney failure, unspecified; I13.0 Hypertensive heart and chronic kidney disease with heart failure and stage 1 through stage 4 chronic kidney disease, or unspecified chronic kidney disease; C85.80 Other specified types of non-Hodgkin lymphoma, unspecified site; C91.11 Chronic lymphocytic leukemia of B-cell type in remission; Z94.84 Stem cells transplant status; F32.A Depression, unspecified; N18.9 Chronic kidney disease, unspecified; I42.9 Cardiomyopathy, unspecified; G31.84 Mild cognitive impairment of uncertain or unknown etiology; R43.0 Anosmia; Z86.73 Personal history of transient ischemic attack (TIA), and cerebral infarction without residual deficits
CPT/HCPCS: 36415; 80048; 80053; 87635; 93005; 93270; 96365; 96376; 99223; 99291; 71045; 83735; 84443; 84484; 85025; 85730; 93010; 93306; 99232; 99239; J3490

== ENCOUNTER 2022-07-29 09:48 | Outpatient (CLI) | payer MEDICARE, SELFPAY ==
--- NOTE | 2022-07-29 09:45 | RT.EKG_ITS ---
APPROVED REPORT Exam: Resting ECG Reason for Exam: increased blood pressure and pulse Patient Location: O HR:117 bpm ECG Measurements Heart Rate 117 AXIS HI [id number] P [id number] QRSd 98 QRS -2 QT 319 T -29 QTc 445 Conclusion Atrial fibrillation...V-rate 86-152, irreg A-activity
== END 2022-07-29 09:49 | disposition home or self-care (01) ==
LOC: DI.CM 09:49
PROVIDERS: PCP Nurse Practitioner Family; Visit Provider Nurse Practitioner Family
DX: I50.21 Acute systolic (congestive) heart failure (principal); R94.31 Abnormal electrocardiogram [ECG] [EKG]; I48.91 Unspecified atrial fibrillation
CPT/HCPCS: 93010

== ENCOUNTER 2022-07-29 10:23 | Emergency (ER) | payer MEDICARE, SELFPAY ==
--- NOTE | 2022-07-29 10:15 | RT.EKG_ITS ---
APPROVED REPORT Exam: Resting ECG Reason for Exam: Tachycardia Patient Location: E HR:116 bpm ECG Measurements Heart Rate 116 AXIS AZ [id number] P [id number] QRSd 80 QRS -19 QT 334 T -8 QTc 465 Conclusion Atrial fibrillation...V-rate 78-165, irreg A-activity Borderline T abnormalities, diffuse leads...T flat/neg
[2022-07-29 10:29] VITALS: BP 158/118; PULSE 127; RESP 20; TEMP 36.8; O2SAT 99
--- NOTE | 2022-07-29 10:30 | DI.RAD_ITS ---
Exam(s) XR CHEST 2V PA LATERAL EXAM: XR CHEST 2V PA LATERAL CLINICAL HISTORY: SHORTNESS OF BREATH TECHNIQUE: 2D digital imaging was performed of the chest. Two images were obtained. PA and lateral views were obtained. COMPARISON: CR XR CHEST 2V PA LATERAL from 11/03/2020 CR XR PORTABLE CHEST AP from 07/07/2022 FINDINGS: MEDIASTINUM: Normal. HEART: Mild cardiomegaly. PULMONARY VASCULATURE: Prominence of the pulmonary vasculature and mild interstitial prominence. LUNGS: No focal consolidating infiltrates. Underlying COPD. PLEURAL SPACE: Small bilateral pleural effusions. No pneumothorax. BONE:Within normal limits for the patient's age. OTHER FINDINGS:Normal. IMPRESSION: Findings suggestive of fluid overload/CHF. DATA REPOSITORY: RADIATION DOSE DELIVERED:
--- NOTE | 2022-07-29 11:16 | W.ED.GENAD ---
Discharge Plan Disposition Patient Disposition: HOME Condition: Stable Discharge Details Clinical Impression: Acute exacerbation of congestive heart failure, Elevated LFTs Primary Care Provider: Geovanni Luna ED Provider: Wilman Hayes Home Meds and New Rx's Prescriptions: New metoprolol succinate 100 mg tablet extended release 24 hr 100 mg PO BID Qty: 60 0RF torsemide 20 mg tablet 20 mg PO DAILY Qty: 30 0RF Continued loratadine [Allergy Relief (loratadine)] 10 mg tablet 10 mg PO DAILY Qty: 90 3RF Eliquis 5 mg tablet 5 mg PO BID losartan 50 mg tablet 50 mg PO DAILY Qty: 90 0RF melatonin 3 mg capsule 9 mg PO HS PRN Label Comments: Per [facility] [place] famotidine [Pepcid] 20 mg tablet 20 mg PO DAILY Label Comments: per [facility] [place] divalproex [Depakote] 250 mg tablet,delayed release (DR/EC) 250 mg PO BID Label Comments: per [facility] [place] acyclovir 400 mg tablet 400 mg PO BID Label Comments: per [facility] [place] sulfacetamide sodium [Bleph-10] 10 % drops 1 drp ophthalmic (eye) Q4H Qty: 15 0RF triamcinolone acetonide 0.1 % ointment See Rx Instructions .ROUTE .COMPLEX PRN Label Comments: APPLY TWICE DAILY TO THE AFFECTED AREAS OF LEGS FOR 14 DAYS, TAKE 1 WEEK OFF AND REPEAT NEEDED Rx Instructions: APPLY TWICE DAILY TO THE AFFECTED AREAS OF LEGS FOR 14 DAYS, TAKE 1 WEEK OFF AND REPEAT NEEDED levalbuterol tartrate 45 mcg/actuation Hfa Aerosol Inhaler 2 puff inhalation Q6H PRN PRN (Reason: shortness of breath or wheezing) Qty: 15 0RF Discontinued metoprolol succinate 100 mg tablet extended release 24 hr 100 mg PO DAILY Qty: 90 3RF Discharge Instructions Instructions: Heart Failure (ED) Additional Instructions: Please take metoprolol 100 mg ER twice daily as prescribed. Please start diuretic torsemide -you were given initial dose here in the emerge department. Your next dose should be tomorrow. Please follow-up with cardiology. Call this week to schedule timely follow-up. Please contact your primary care physician to arrange follow-up. Your liver enzymes were elevated today. You should have this rechecked. Be sure to discuss with your primary care physician. A hepatitis panel was sent today and results are not yet available. Be sure to discuss this with your doctor. Please also discuss these findings with your oncologist. Return to the ER immediately for any worsening or new concerning symptoms. Referrals: Geovanni Luna, DATA MODELING ARCHITECT [Primary Care Provider] - Medical Decision Making 71-year-old male with multi medical problem occluding history of CLL, primary MATHEMATICIAN RESEARCH lymphoma, hypertension, cardiomyopathy, CHF, A. fib, DVT now on Eliquis, here with tachycardia, hypertension and shortness of breath with dyspnea on exertion. Patient is tachycardic in the 110s with elevated blood pressure. EKG was reviewed and interpreted by me: Please see report, A. fib with RVR 116 bpm. Will give Lopressor 5 mg IV. Consider acute CHF exacerbation. I will check BNP. Consider acute pulmonary embolism and will check D-dimer. -- Labs reviewed and troponin negative. D-dimer negative. BNP is elevated at 18,000. LFTs elevated - this is new. Will send hepatitis panel. Patient has not taking acetaminophen. cxr reviewed and interpreted by radiology: PULMONARY VASCULATURE: Prominence of the pulmonary vasculature and mild interstitial prominence.? Findings consistent with CHF. Blood pressure and heart rate did improve after Lopressor. I called and consulted Dr. Benítez, on-call gallery or museum attendant, discussed ED presentation and course including current state and diagnostic results. She knows the patient from recent hospitalization. She recommends increasing metoprolol ER to 100 mg twice daily and starting torsemide 20 mg. She feels patient appropriate for discharge with outpatient follow-up. All results were discussed with the patient. I recommended he contact his PCP first thing Monday to arrange timely follow-up. I recommended he follow-up with cardiology. I recommended he be sure to discuss elevated LFTs with his primary care physician as well as his oncologist. Discharge treatment plan discussed with the patient. Disposition decision was made weighing the risks and benefits of hospitalization versus outpatient treatment, the risk for further decompensation, and the patient's wishes. The patient was stable and requested discharge. Prior to discharge, my usual and customary return precautions were reviewed with the patient - this included follow-up instructions and reason to return to the emergency department if condition worsens, does not improve as expected, or other new concerns arise. Lab Data Lab results reviewed: Yes I reviewed the patient's lab results. Labs: Laboratory Tests Range/Units 07/29/22 07/29/2207/29/22 11:08 11:08 11:08 WBC (4.4-10.8) 10^3/uL 7.30 RBC (4.36-5.78) 10^6/uL 5.18 Hgb (13.5-17.5) g/dL 16.0 Hct (40.0-50.0) % 48.3 MCV (80-95) fL 93 MCH (27.0-33.0) pg 30.9 MCHC (32.0-36.0) % 33.1 RDW (11.8-14.1) % 15.4 H Plt Count (130-400) 10^3/uL 150 MPV (8.0-11.0) fL 11.3 H Immature Gran % 0.4 Neutrophils % 66.9 Lymphocytes % 21.1 Monocytes % 10.1 Eosinophils % 0.5 Basophils % 1.0 Nucleated RBC % (0.0-0.3) % 0.0 Absolute Neutrophils (1.2-6.7) 10^3/uL 4.88 Absolute Lymphocytes (1.2-3.4) 10^3/uL 1.54 Absolute Monocytes (0.1-0.8) 10^3/uL 0.74 Absolute Eosinophils (0.0-0.7) 10^3/uL 0.04 Absolute Basophils (0.0-0.2) 10^3/uL 0.07 D-Dimer Cancelled Sodium (136-145) mmol/L 144 Potassium (3.5-5.1) mmol/L 4.5 Chloride (98-107) mmol/L 109 H Carbon Dioxide (21.0-32.0) mmol/L 26.5 Anion Gap (3-11) mmol/L 8.5 BUN (7-18) mg/dL 38 H Creatinine (0.70-1.30) mg/dL 1.7 H Est GFR (CKD-EPI 2020) (mL/min/1.73m2) 43.10 Glucose (74-106) mg/dL 104 Calcium (8.5-10.1) mg/dL 8.8 Magnesium (1.8-2.4) mg/dL 1.8 Total Bilirubin (0.2-1.0) mg/dL 1.1 H AST (15-37) U/L 156 H ALT (16-63) U/L 442 H Alkaline Phosphatase (46-116) U/L 234 H Troponin I (<or=60) ng/L < 50 NT-Pro-B Natriuret Pep (<300) pg/mL 46489 H Total Protein (6.4-8.2) g/dL 5.7 L Albumin (3.4-5.0) g/dL 3.4 Range/Units 07/29/22 11:40 WBC (4.4-10.8) 10^3/uL RBC (4.36-5.78) 10^6/uL Hgb (13.5-17.5) g/dL Hct (40.0-50.0) % MCV (80-95) fL MCH (27.0-33.0) pg MCHC (32.0-36.0) % RDW (11.8-14.1) % Plt Count (130-400) 10^3/uL MPV (8.0-11.0) fL Immature Gran % Neutrophils % Lymphocytes % Monocytes % Eosinophils % Basophils % Nucleated RBC % (0.0-0.3) % Absolute Neutrophils (1.2-6.7) 10^3/uL Absolute Lymphocytes (1.2-3.4) 10^3/uL Absolute Monocytes (0.1-0.8) 10^3/uL Absolute Eosinophils (0.0-0.7) 10^3/uL Absolute Basophils (0.0-0.2) 10^3/uL D-Dimer 459 Sodium (136-145) mmol/L Potassium (3.5-5.1) mmol/L Chloride (98-107) mmol/L Carbon Dioxide (21.0-32.0) mmol/L Anion Gap (3-11) mmol/L BUN (7-18) mg/dL Creatinine (0.70-1.30) mg/dL Est GFR (CKD-EPI 2020) (mL/min/1.73m2) Glucose (74-106) mg/dL Calcium (8.5-10.1) mg/dL Magnesium (1.8-2.4) mg/dL Total Bilirubin (0.2-1.0) mg/dL AST (15-37) U/L ALT (16-63) U/L Alkaline Phosphatase (46-116) U/L Troponin I (<or=60) ng/L NT-Pro-B Natriuret Pep (<300) pg/mL Total Protein (6.4-8.2) g/dL Albumin (3.4-5.0) g/dL HPI General Mode of arrival: ambulatory. Date/Time Provider Initiated Documentation: 07/29/22 10:30. Limitations to Documentation: no limitations. Information obtained by: patient. HPI Narrative: 71-year-old male with history of A. fib and multiple other medical problems, here with shortness of breath. Patient has had intermittent shortness of breath over the past couple weeks. Symptoms worse since last night. Worse with exertion. Patient was seen by PCP today who was concerned with elevated heart rate in the 120s and elevated blood pressure. Patient has been following with PCP and recently had metoprolol increased to 100 mg daily earlier this week. Initially this seemed to help with symptoms and now symptoms worsening. He has been taking as prescribed over the past week. He has no associated chest pain. Chronic leg swelling left greater than right with no calf pain. He is on Eliquis. Related Data Home Medications Medication Instructions Recorded Confirmed acyclovir 400 mg tablet 400 mg PO BID 02/17/21 07/29/22 divalproex 250 mg tablet,delayed 250 mg PO BID 02/17/21 07/29/22 release (Depakote) famotidine 20 mg tablet (Pepcid) 20 mg PO DAILY 02/17/21 07/29/22 melatonin 3 mg capsule 9 mg PO HS PRN 02/17/21 07/29/22 loratadine 10 mg tablet (Allergy 10 mg PO DAILY #90 tabs 03/30/22 07/29/22 Relief (loratadine)) sulfacetamide sodium 10 % eye 1 drp ophthalmic (eye) Q4H #15 mL 05/26/22 07/29/22 drops (Bleph-10) apixaban 5 mg tablet (Eliquis) 5 mg PO BID 07/01/22 07/29/22 losartan 50 mg tablet 50 mg PO DAILY #90 tabs 07/01/22 07/29/22 triamcinolone acetonide 0.1 % See Rx Instructions .Route 07/06/22 07/29/22 topical ointment .COMPLEX PRN levalbuterol tartrate 45 2 puff inhalation Q6H PRN PRN 07/08/22 07/29/22 mcg/actuation aerosol inhaler shortness of breath or wheezing #15 grams metoprolol succinate 100 mg 100 mg PO BID #60 tabs 07/29/22 tablet,extended release 24 hr torsemide 20 mg tablet 20 mg PO DAILY #30 tabs 07/29/22 Previous Rx's Medication Instructions Recorded loratadine 10 mg tablet (Allergy 10 mg PO DAILY #90 tabs 03/30/22 Relief (loratadine)) sulfacetamide sodium 10 % eye 1 drp ophthalmic (eye) Q4H #15 mL 05/26/22 drops (Bleph-10) losartan 50 mg tablet 50 mg PO DAILY #90 tabs 07/01/22 levalbuterol tartrate 45 2 puff inhalation Q6H PRN PRN 07/08/22 mcg/actuation aerosol inhaler shortness of breath or wheezing #15 grams metoprolol succinate 100 mg 100 mg PO BID #60 tabs 07/29/22 tablet,extended release 24 hr torsemide 20 mg tablet 20 mg PO DAILY #30 tabs 07/29/22 Allergies Allergy/AdvReac Type Severity Reaction Status Date / Time No Known Allergies Allergy Verified 07/29/22 09:33 General Stated Complaint: Palpitatns PERRY: 2 Review of Systems All systems reviewed & are unremarkable except as noted in HPI and below Constitutional Constitutional: Denies fever(s) Cardiovascular Cardiovascular: Denies chest pain and Reports dyspnea Respiratory Respiratory: Reports dyspnea PFSH All Active Problems (Updated 07/29/22 @ 13:34 by Wilman Hayes MD) Acute exacerbation of congestive heart failure (Acute) Elevated LFTs (Acute) Acute systolic CHF (congestive heart failure) (Acute) Bronchospasm (Acute) Cardiomyopathy (Acute) Atrial fibrillation with rapid ventricular response (Acute) Deep vein thrombosis (DVT) of left lower extremity (Acute) CLL (chronic lymphocytic leukemia) (Acute) Acute kidney injury superimposed on chronic kidney disease (Acute) Primary MATHEMATICIAN RESEARCH lymphoma (Acute) Dealt with by [facility] Hypertension (Chronic) MCI (mild cognitive impairment) (Acute) Elevated glucose (Acute) Anosmia (Chronic) Since chemotherapy 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) Status post stem cell transplant 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) Medical History Allergic rhinitis (06/02/15) Cerebrovascular disease CKD (chronic kidney disease) CVA (cerebral vascular accident) Depressive disorder Essential hypertension Essential hypertension (01/09/18) Incisional hernia Incisional hernia of anterior abdominal wall without obstruction or gangrene (02/21/17) Leukoencephalopathy Non-Hodgkin lymphoma Sexual function problem Transient global amnesia Varicocele right Surgical History EGD - MAC (06/05/18) History of stem cell transplant Laparotomy After perforation from ERCP S/P autologous bone marrow transplantation Ulnar Nerve Transposition Family History Mother , 93 No problems noted. Father , 74 AML (acute myeloblastic leukemia) Sister No problems noted. Brother Hyperlipidemia Maternal Grandfather Stroke Paternal Grandfather , 55 Lymphoma Maternal Grandmother , 90 Essential hypertension Paternal Grandmother , 90 No problems noted. Brother No problems noted. Brother No problems noted. Son No problems noted. Son No problems noted. 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 Pets and animals: Yes Pets and animals: cat(s) Sexually active: No Do you think of yourself as: straight/heterosexual Current gender identity: male What is your relationship status?: How often do you talk on the phone with friends or family?: three or more times per week How often do you get together with friends or relatives?: once per week Do you belong to any clubs or organized social groups?: yes Panel score (0-1 are the most socially isolated patients): 3 What type of physical activity do you participate in: other Details: PT,Gardening Duration: 30-45 minutes/day Frequency: 3-4 times per week Erica/Catholic: Scientology Special erica needs: No Seatbelt use: always Helmet use: Yes Helmet use: always Drive intox or ride w/intox utility worker driver: No Do you feel safe at home: Yes Do you feel safe in your relationship?: Yes Exam Const General: cooperative, comfortable and no acute distress Orientation: alert and awake HENMT Mouth: moist mucous membranes Eyes Conjunctivae: normal conjunctivae Sclera: normal sclerae EOM: EOM intact bilaterally Neck Neck: trachea midline and supple Resp Auscultation: clear to auscultation bilaterally, no rales, no rhonchi and no wheezes Cardio Rate: tachycardic Rhythm: abnormal rhythm irregularly irregular GI Palpation: soft, not firm, no guarding, no masses, not rigid and nontender Skin General skin exam: no rashes or lesions noted Neuro General: patient alert, patient awake and patient oriented x3 Extrem General: no calf tenderness and edema Laterality: bilateral (LEFT > RIGHT) Psych Appearance: grossly normal Mental Status: mental status grossly normal Course Vital Signs Vital signs: Vital Signs Temperature 36.8 C 07/29/22 10:29 Pulse 127 H 07/29/22 10:29 Respiratory Rate 20 07/29/22 10:29 Blood Pressure 158/118 H 07/29/22 10:29 Pulse Oximetry 99 07/29/22 10:29 Temperature 36.8 C 07/29/22 10:29 Temperature Source Temporal Artery Scan 07/29/22 10:29 Pulse 127 H 07/29/22 10:29 Respiratory Rate 20 07/29/22 10:29 Respiratory Effort Non-Labored 07/29/22 10:33 Blood Pressure 158/118 H 07/29/22 10:29 Blood Pressure Position Sitting 07/29/22 10:29 Pulse Oximetry 99 07/29/22 10:29 Oxygen Delivery Method Room Air 07/29/22 10:29 Oxygen Flow Rate 0 07/29/22 10:29 Pain Level 0 07/29/22 10:29
[2022-07-29 11:32] LABS: Abs Immature Grans 0.03 10^3/uL (0.0-0.06); Absolute Basophil Count 0.07 10^3/uL (0.0-0.2); Absolute Eosinophil Count 0.04 10^3/uL (0.0-0.7); Absolute Lymphocyte Count 1.54 10^3/uL (1.2-3.4); Absolute Monocyte Count 0.74 10^3/uL (0.1-0.8); Absolute Neutrophil Count 4.88 10^3/uL (1.2-6.7); Eosinophils % 0.5; HCT 48.3 % (40.0-50.0); Immature Grans % 0.4; Lymphocytes % 21.1; MCH 30.9 pg (27.0-33.0); MCHC 33.1 % (32.0-36.0); MCV 93 fL (80-95); MPV 11.3 fL (8.0-11.0); Monocytes % 10.1; Neutrophils % 66.9; Platelet Count 150 10^3/uL (130-400); RBC 5.18 10^6/uL (4.36-5.78); RDW 15.4 % (11.8-14.1); RDW-SD 52.8 fL
[2022-07-29 11:38] VITALS: BP 141/116; PULSE 111
[2022-07-29] MEDS: Metoprolol 5 MG/5 ML VIAL IVP (11:38)
[2022-07-29 11:55] LABS: ALT 442 U/L (16-63); AST 156 U/L (15-37); Albumin 3.4 g/dL (3.4-5.0); Alkaline Phosphatase 234 U/L (46-116); Anion Gap 8.5 mmol/L (3-11); BUN 38 mg/dL (7-18); Bilirubin, Total 1.1 mg/dL (0.2-1.0); CO2 26.5 mmol/L (21.0-32.0); CREATININE 1.7 mg/dL (0.70-1.30); Calcium 8.8 mg/dL (8.5-10.1); Chloride 109 mmol/L (98-107); Glucose 104 mg/dL (74-106); Magnesium 1.8 mg/dL (1.8-2.4); NT-proBNP 17969 pg/mL (<300); Potassium 4.5 mmol/L (3.5-5.1); Sodium 144 mmol/L (136-145); Total Protein 5.7 g/dL (6.4-8.2); Troponin I < 50 ng/L (<or=60)
[2022-07-29 12:25] LABS: D-Dimer 459 ng/mlFEU (<500)
[2022-07-29 13:24] LABS: ALT 450 U/L (16-63); AST 159 U/L (15-37); Albumin 3.4 g/dL (3.4-5.0); Alkaline Phosphatase 236 U/L (46-116); Bilirubin, Direct 0.4 mg/dL (0.0-0.2); Bilirubin, Total 1.1 mg/dL (0.2-1.0); Total Protein 5.7 g/dL (6.4-8.2)
[2022-07-29] MEDS: Metoprolol CR 50 MG TABCR 100 MG PO (13:31)
[2022-07-29] MEDS: Torsemide 20 MG TAB PO (13:31)
[2022-07-29 13:45] VITALS: BP 151/110; PULSE 108; RESP 24
== END 2022-07-29 13:39 | disposition home or self-care (01) ==
PROVIDERS: Emergency Provider Student in an Organized Health Care Education/Training Program; PCP Nurse Practitioner Family
DX: I13.0 Hypertensive heart and chronic kidney disease with heart failure and stage 1 through stage 4 chronic kidney disease, or unspecified chronic kidney disease (principal); I50.9 Heart failure, unspecified; R79.89 Other specified abnormal findings of blood chemistry; I48.91 Unspecified atrial fibrillation; N18.9 Chronic kidney disease, unspecified
CPT/HCPCS: 36415; 80053; 80076; 93005; 96374; 96375; 99284; 71046; 83735; 83880; 84484; 85025; 85379; 93010; 99285

== ENCOUNTER 2022-08-04 04:02 | Outpatient (CLI) | payer MEDICARE, SELFPAY ==
[2022-08-04 12:51] LABS: ALT 123 U/L (16-63); AST 34 U/L (15-37); Albumin 3.6 g/dL (3.4-5.0); Alkaline Phosphatase 157 U/L (46-116); Bilirubin, Direct 0.2 mg/dL (0.0-0.2); Bilirubin, Total 0.7 mg/dL (0.2-1.0); NT-proBNP 4008 pg/mL (<300); Total Protein 6.3 g/dL (6.4-8.2)
== END 2022-08-04 04:03 | disposition home or self-care (01) ==
LOC: LOS 04:02
PROVIDERS: PCP Nurse Practitioner Family; Visit Provider Nurse Practitioner Family
DX: J98.01 Acute bronchospasm (principal); R79.89 Other specified abnormal findings of blood chemistry
CPT/HCPCS: 36415; 80076; 83880

== ENCOUNTER 2022-08-10 13:08 | Outpatient (CLI) | payer MEDICARE, SELFPAY ==
[2022-08-10 13:09] LABS: Abs Immature Grans 0.04 10^3/uL (0.0-0.06); Absolute Basophil Count 0.06 10^3/uL (0.0-0.2); Absolute Eosinophil Count 0.11 10^3/uL (0.0-0.7); Absolute Lymphocyte Count 2.35 10^3/uL (1.2-3.4); Absolute Monocyte Count 0.71 10^3/uL (0.1-0.8); Absolute Neutrophil Count 6.56 10^3/uL (1.2-6.7); Basophils % 0.6; Eosinophils % 1.1; HGB 18.1 g/dL (13.5-17.5); Immature Grans % 0.4; Lymphocytes % 23.9; MCH 30.5 pg (27.0-33.0); MCHC 32.3 % (32.0-36.0); MCV 94 fL (80-95); MPV 10.3 fL (8.0-11.0); Monocytes % 7.2; Neutrophils % 66.8; Platelet Count 165 10^3/uL (130-400); RBC 5.93 10^6/uL (4.36-5.78); RDW 14.7 % (11.8-14.1); WBC 9.83 10^3/uL (4.4-10.8)
[2022-08-10 13:47] LABS: ALT 71 U/L (16-63); AST 32 U/L (15-37); Albumin 3.6 g/dL (3.4-5.0); Alkaline Phosphatase 135 U/L (46-116); Anion Gap 7.4 mmol/L (3-11); BUN 62 mg/dL (7-18); Bilirubin, Total 0.9 mg/dL (0.2-1.0); CO2 31.6 mmol/L (21.0-32.0); CREATININE 2.4 mg/dL (0.70-1.30); Calcium 8.9 mg/dL (8.5-10.1); Chloride 102 mmol/L (98-107); Estimated GFR 28.32 (mL/min/1.73m2); Glucose 112 mg/dL (74-106); LDH 129 U/L (85-227); Potassium 3.8 mmol/L (3.5-5.1); Sodium 141 mmol/L (136-145); Total Protein 6.3 g/dL (6.4-8.2)
[2022-08-10 14:27] LABS: ALT 75 U/L (16-63); AST 30 U/L (15-37); Albumin 3.6 g/dL (3.4-5.0); Alkaline Phosphatase 138 U/L (46-116); Bilirubin, Direct 0.2 mg/dL (0.0-0.2); Bilirubin, Total 0.9 mg/dL (0.2-1.0); NT-proBNP 3594 pg/mL (<300); Total Protein 6.4 g/dL (6.4-8.2)
== END 2022-08-10 13:09 | disposition home or self-care (01) ==
LOC: LBO 13:16
PROVIDERS: PCP Nurse Practitioner Family; Visit Provider Internal Medicine Hematology & Oncology
DX: I50.9 Heart failure, unspecified (principal); R79.89 Other specified abnormal findings of blood chemistry
CPT/HCPCS: 36415; 80053; 80076; 83615; 83880; 85025

== ENCOUNTER 2022-08-12 10:20 | Outpatient (CLI) | payer MEDICARE, SELFPAY ==
--- NOTE | 2022-08-12 13:18 | W.CARDEVENT ---
Date of service: 08/12/22 Time of Service: 13:18 Cardiac Event Recorder Referring Provider:: Geovanni Luna Indications:: Atrial flutter Cardiac Event Note: This is a 30-day event monitor ordered for atrial flutter Atrial flutter was present throughout the recording. Average heart rate was 97 There was no ventricular tachycardia. Episodes labeled ventricular tachycardia or atrial flutter with aberrant conduction There were no pauses greater than 3 seconds minimum heart rate was 71
== END 2022-08-12 10:21 | disposition home or self-care (01) ==
LOC: CARDOPNVT 10:20
PROVIDERS: PCP Nurse Practitioner Family; Visit Provider Internal Medicine Cardiovascular Disease
DX: I48.92 Unspecified atrial flutter (principal)
CPT/HCPCS: 93272

== ENCOUNTER → 2022-08-18 10:46 | Outpatient (BNVA) | payer MEDICARE, SELFPAY | PROVIDERS: PCP Nurse Practitioner Family; Referring Provider Nurse Practitioner Family; Visit Provider Internal Medicine Cardiovascular Disease | DX: I48.91 Unspecified atrial fibrillation (principal); I50.21 Acute systolic (congestive) heart failure; I42.9 Cardiomyopathy, unspecified; R79.89 Other specified abnormal findings of blood chemistry; I10 Essential (primary) hypertension | CPT/HCPCS: 93005; 99203; 99214 ==

== ENCOUNTER 2022-08-18 10:57 | Outpatient (CLI) | payer MEDICARE, SELFPAY ==
--- NOTE | 2022-08-18 10:45 | RT.EKG_ITS ---
APPROVED REPORT Exam: Resting ECG Reason for Exam: AFIB Patient Location: O HR:90 bpm ECG Measurements Heart Rate 90 AXIS [place] [id number] P [id number] QRSd 106 QRS -16 QT 369 T -15 QTc 452 Conclusion Atrial fibrillation...V-rate 74- 82, irreg A-activity Borderline left axis deviation...QRS axis (-15,-29) Low voltage, extremity and precordial leads...extremity<0.5mV, precordial<1.0mV Abnormal R-wave progression, late transition...QRS area<0 in V5/V6
== END 2022-08-18 10:58 | disposition home or self-care (01) ==
LOC: DI.CARD 10:57
PROVIDERS: PCP Nurse Practitioner Family; Visit Provider Internal Medicine Cardiovascular Disease
DX: I42.9 Cardiomyopathy, unspecified (principal); I48.91 Unspecified atrial fibrillation; I50.21 Acute systolic (congestive) heart failure
CPT/HCPCS: 93010

== ENCOUNTER 2022-08-22 02:37 | Outpatient (CLI) | payer MEDICARE, SELFPAY ==
[2022-08-22 10:43] LABS: Abs Immature Grans 0.04 10^3/uL (0.0-0.06); Absolute Basophil Count 0.05 10^3/uL (0.0-0.2); Absolute Eosinophil Count 0.15 10^3/uL (0.0-0.7); Absolute Lymphocyte Count 2.39 10^3/uL (1.2-3.4); Absolute Monocyte Count 0.68 10^3/uL (0.1-0.8); Absolute Neutrophil Count 4.91 10^3/uL (1.2-6.7); Basophils % 0.6; Eosinophils % 1.8; HCT 51.2 % (40.0-50.0); HGB 16.8 g/dL (13.5-17.5); Immature Grans % 0.5; Lymphocytes % 29.1; MCH 30.7 pg (27.0-33.0); MCHC 32.8 % (32.0-36.0); MCV 94 fL (80-95); MPV 10.7 fL (8.0-11.0); Monocytes % 8.3; Neutrophils % 59.7; Platelet Count 144 10^3/uL (130-400); RBC 5.47 10^6/uL (4.36-5.78); RDW 14.6 % (11.8-14.1); WBC 8.22 10^3/uL (4.4-10.8)
[2022-08-22 10:51] LABS: ALT 44 U/L (16-63); AST 30 U/L (15-37); Albumin 3.4 g/dL (3.4-5.0); Alkaline Phosphatase 108 U/L (46-116); Anion Gap 9.1 mmol/L (3-11); BUN 39 mg/dL (7-18); Bilirubin, Total 0.6 mg/dL (0.2-1.0); CO2 26.9 mmol/L (21.0-32.0); CREATININE 1.9 mg/dL (0.70-1.30); Calcium 8.6 mg/dL (8.5-10.1); Chloride 106 mmol/L (98-107); Estimated GFR 37.48 (mL/min/1.73m2); Glucose 98 mg/dL (74-106); Potassium 3.8 mmol/L (3.5-5.1); Sodium 142 mmol/L (136-145); Total Protein 5.9 g/dL (6.4-8.2)
== END 2022-08-22 02:38 | disposition home or self-care (01) ==
LOC: LOS 02:37
PROVIDERS: Internal Medicine Cardiovascular Disease; PCP Nurse Practitioner Family; Visit Provider Nurse Practitioner Family
DX: C91.91 Lymphoid leukemia, unspecified, in remission (principal); I50.9 Heart failure, unspecified; R79.89 Other specified abnormal findings of blood chemistry
CPT/HCPCS: 36415; 80053; 85025

== ENCOUNTER 2022-11-08 02:22 | Outpatient (CLI) | payer MEDICARE, SELFPAY ==
--- NOTE | 2022-11-08 10:13 | DI.US_ITS ---
APPROVED REPORT EXAM: Comprehensive 2D, Doppler, and color-flow Echocardiogram Patient Location: Out-Patient Emergency Dept Tech: Theresa Leach RDCS (AE) Indications: RE check LV function, HTN, Cardiomyopathy. A Fib Other Information Study Quality: Fair. Technically limited study due to body habitus. Conclusion Normal left ventricular wall thickness and chamber size. Estimated ejection fraction is 30%. There is global hypokinesis The right ventricle is moderately dilated and mildly hypocontractile Right atrium is moderately dilated. The left atrium is mildly dilated Aortic valve is sclerotic and trileaflet with trace regurgitation Mildly thickened mitral leaflets, mild mitral regurgitation Normal tricuspid valve with mild regurgitation. Estimated right ventricular systolic pressure is 20 mmHg Small circumferential pericardial effusion Patient was in atrial flutter throughout, rate controlled Wall motion Left Ventricle The left ventricle is normal size. Left ventricular systolic function is decreased. There is normal l eft ventricular wall thickness. There is global hypokinesis of the left ventricle. There is no ventri cular septal defect visualized. LVEF is 30%. Right Ventricle Right ventricle is moderately dilated. Right ventricle is mildly hypokinetic. Atria Left atrium is mildly dilated. Right atrium is moderately dilated. The interatrial septum is intact w ith no evidence for an atrial septal defect. Aortic Valve The Aortic valve is sclerotic. There is no aortic valvular stenosis. Trace aortic regurgitation. Mitral Valve Mitral valve leaflets are mildly thickened. No evidence of mitral valve stenosis. Mild mitral regurgi tation. Tricuspid Valve The tricuspid valve is normal in structure. There is no tricuspid valve stenosis. Mild tricuspid regu rgitation. Pulmonic Valve The pulmonary valve is normal in structure. There is no pulmonic valvular stenosis. Trace pulmonic re gurgitation. Great Vessels The aortic root is normal in size. The ascending aorta is normal in size. Aortic arch is normal in ca liber. The IVC was not well visualized. Pericardium Mild circumferential pericardial effusion. 2D Dimensions IVSD d PLAX 0.92 cm M: 0.6-1.2 LV Vol A2C d MOD 60.6 mL LVPW d PLAX 0.95 cm M: 0.6 - 1.2 LV Vol A4C d MOD 71.2 mL LVID d PLAX 4.76 cm M: 4.2 - 5.8 LA vol/ BSA A2C s A-L 31.0 mL/m2 LVDs 4.35 cm M: 2.5 - 4.0 LA vol/ BSA A4C s A-L 27.7 mL/m2 Ao Root d 3.41 cm M: 3.1 - 3.7 LA Vol/ BSA Biplane s A-L 30.9 mL/m2 RA Area A4C 20.05 cm2 LA Area A4C s MOD 18.92 cm2 RA Vol/ BSA A4C s A-L 30.3 mL/m2 LA Area A2C s MOD 21.11 cm2 Ao Asc Diam d 3.32 cm M: 2.6 - 3.4 LV EF A4C MOD 20.5 % LV EF Teichholz 17.3 % LV EF A2C MOD 21.6 % LVEF (Rondon's) 21.96 % M: 52 - 72 LV EF Biplane MOD 22.0 % LV Volume 50.84 mL M: 62 - 150 SV 14.99 mL LV Volume Index 24.92 mL/m2 M: 34 - 74 SV Index 7.34 mL/m2 LV Vol Biplane MOD 68.3 mL FS 7.80 % M-Mode TAPSE 1.03 cm (M/F) >1.7 LV Diastology MV E' medial 0.048 (>0.07 m/s) MV E Vmax 0.71 (0.4-1.3 m/s) LV E/e MED 14.85 (<14) MV E' lateral 0.049 (>0.1 m/s) LV E/e LAT 14.50 (<14) MV E/E' medial 14.87 MV E/E' lateral 14.50 Aortic Valve LVOT Area 3.67 cm2 AoV Area Vmax 2.44 cm2 LVOT Vmax 0.54 m/s AoV Area/ BSA (Vmax) 1.20 cm2/m2 LVOT Mean Brad. 0.38 m/s KIP Mean Brad. 2.21 cm2 LVOT Peak Grad 1.2 mmHg KIP Mean Brad. Index 1.08 cm2/m2 LVOT Mean Grad 0.6 mmHg LVOT VTI 0.090 m LVOT Diam s 2.15 cm AoV Vmax 0.81 m/s Velocity Ratio 0.67 AoV Mean Brad. 0.63 m/s AoV Peak Grad 2.6 mmHg LVOT SV 32.97 mL AoV Mean Grad 1.7 mmHg AoV VTI 0.131 m AoV Area VTI 2.51 cm2 AoV Area/ BSA (VTI) 1.23 cm/m2 Mitral Valve MV DT 165 (160-240 msec) MV PHT 48 msec MV Area PHT 4.61 cm2 MV VTI 0.160 m MV Area VTI 2.06 (4.0-6.0 cm2) Pulmonary Valve PV Vmax 0.77 (0.5-1.5 m/s) RVOT Peak Gr. 0.82 mmHg PV Peak Grad 2.4 mmHg RVOT Mean Gr. 0.40 mmHg PV Mean Grad 1.2 mmHg RVOT VTI 0.071 m PV VTI 0.107 m RVOT Vmax 0.45 m/s Tricuspid Valve TR Peak Grad 15.7 mmHg TR Vmax 1.98 m/s
== END 2022-11-08 02:42 ==
LOC: DI 02:22
PROVIDERS: PCP Nurse Practitioner Family; Visit Provider Internal Medicine Cardiovascular Disease
DX: I10 Essential (primary) hypertension (principal); I42.9 Cardiomyopathy, unspecified; I48.91 Unspecified atrial fibrillation; I82.402 Acute embolism and thrombosis of unspecified deep veins of left lower extremity
CPT/HCPCS: 93306

== ENCOUNTER → 2022-11-18 12:43 | Outpatient (BNVA) | payer MEDICARE, SELFPAY | PROVIDERS: PCP Nurse Practitioner Family; Referring Provider Nurse Practitioner Family; Visit Provider Internal Medicine Cardiovascular Disease | DX: I48.91 Unspecified atrial fibrillation (principal); I42.9 Cardiomyopathy, unspecified; I50.21 Acute systolic (congestive) heart failure; Z79.01 Long term (current) use of anticoagulants; I10 Essential (primary) hypertension | CPT/HCPCS: 99214; 99213 ==

== ENCOUNTER 2023-03-16 12:54 | Outpatient (CLI) | payer MEDICARE, SELFPAY ==
--- NOTE | 2023-03-16 12:45 | RT.EKG_ITS ---
APPROVED REPORT Exam: Resting ECG Reason for Exam: afib Patient Location: O HR:91 bpm ECG Measurements Heart Rate 91 [place] W[place] [id number] P [id number] QRSd 89 QRS -10 QT 365 T -28 QTc 450 Conclusion Atrial fibrillation...V-rate 65-122, irreg A-activity Low voltage, precordial leads...precordial leads <1.0mV Nonspecific T abnormalities, anterior leads...T <-0.10mV, V2-V4
== END 2023-03-16 12:55 | disposition home or self-care (01) ==
LOC: DI.CARD 12:54
PROVIDERS: PCP Nurse Practitioner Family; Visit Provider Internal Medicine Cardiovascular Disease
DX: I48.91 Unspecified atrial fibrillation (principal)
CPT/HCPCS: 93010

== ENCOUNTER → 2023-03-16 14:09 | Outpatient (BNVA) | payer MEDICARE, SELFPAY | PROVIDERS: PCP Nurse Practitioner Family; Referring Provider Nurse Practitioner Family; Visit Provider Internal Medicine Cardiovascular Disease | DX: I11.0 Hypertensive heart disease with heart failure (principal); Z79.01 Long term (current) use of anticoagulants; I50.9 Heart failure, unspecified; I42.9 Cardiomyopathy, unspecified; I48.91 Unspecified atrial fibrillation | CPT/HCPCS: 93005; 99214 ==

== ENCOUNTER → 2023-07-05 02:37 | Outpatient (CLI) | payer MEDICARE, SELFPAY ==
--- NOTE | 2023-07-05 10:30 | DI.US_ITS ---
APPROVED REPORT EXAM: Comprehensive 2D, Doppler, and color-flow Echocardiogram Patient Location: Out-Patient Lecturer In Computer Science: Theresa Leach RDCS (AE) Indications: RE check LV function, Cardiomyopathy, Atrial Fibrillation, HTN Other Information Study Quality: Fair. Technically limited study due to body habitus. Conclusion Left ventricular wall thickness and chamber size. Ejection fraction by biplane is 30%. Visually it appears closer to 40% as the patient is in atrial fibrillation with [id number] variation and the en docardium was not outlined accurately Mildly dilated right ventricle, right ventricular hypokinesis Both atria are moderately enlarged Aortic valve is mildly sclerotic and trileaflet without stenosis or regurgitation Normal mitral valve with moderate regurgitation Small circumferential pericardial effusion Wall motion Left Ventricle The left ventricle is normal size. Left ventricular systolic function is moderate to severely decreas ed. There is normal left ventricular wall thickness. There is global hypokinesis of the left ventricl e. There is no ventricular septal defect visualized. LVEF is 30%. Right Ventricle Right ventricle is mildly dilated. Right ventricle is moderately hypokinetic. Atria Left atrium is moderately dilated. Right atrium is moderately dilated. The interatrial septum is inta ct with no evidence for an atrial septal defect. Aortic Valve The Aortic valve is mildly sclerotic. There is no aortic valvular stenosis. No aortic regurgitation i s present. Mitral Valve The mitral valve is normal in structure. No evidence of mitral valve stenosis. Moderate mitral regurg itation. Tricuspid Valve The tricuspid valve is normal in structure. There is no tricuspid valve stenosis. Trace to mild tric uspid regurgitation. Pulmonic Valve The pulmonary valve is normal in structure. There is no pulmonic valvular stenosis. Trace pulmonic re gurgitation. Great Vessels The aortic root is normal in size. The ascending aorta is normal in size. Aortic arch is normal in ca liber. IVC is normal in size and collapses >50% with inspiration. Pericardium Mild circumferential pericardial effusion. 2D Dimensions IVSD d PLAX 0.87 cm M: 0.6-1.2 Ao Root d 3.35 cm M: 3.1 - 3.7 LVPW d PLAX 0.92 cm M: 0.6 - 1.2 Ao Asc Diam d 3.19 cm M: 2.6 - 3.4 LVID d PLAX 4.31 cm M: 4.2 - 5.8 LVDs 3.69 cm M: 2.5 - 4.0 LV EF Teichholz 30.8 % FS 14.36 % LV EDV (Teich) 83.6 mL LV ESV (Teich) 57.9 mL M-Mode TAPSE 1.86 cm (M/F) >1.7 Auto EF LV EDV A4C 64.1 mL LV EDV A2C 64.2 mL LV EDV BP 63.8 mL LV ESV A4C 45.3 mL LV ESV A2C 45.2 mL LV ESV BP 44.9 mL LVEF(%) A4C 29.4 % LVEF(%) A2C 29.5 % LVEF(%) BP 29.5 % LV SV A4C 18.8 ml LV SV A2C 18.9 ml LV SV BP 18.8 ml LV CO A4C 1.8 L/min LV CO A2C 1.6 L/min LV CO BP 1.7 L/min HR A4C 97.56 BPM HR A2C 83.92 BPM LV EDV Index (BP) RV Strain Global Peak Long. Strain A4C 9.45 Global Peak Long. Strain A4C FW 12.14 LA Volume LA Length A4C 6.7 cm LA Length A2C 5.5 cm LA Area A4C s 23.53 cm2 LA Area A2C s 18.45 cm2 LA Vol A4C A-L 69.83 mL LA Vol A2C A-L 52.71 mL LA Vol Biplane A-L 67.2 mL LA Vol/BSA A4C A-L LA Vol/BSA A2C A-L LA Vol/BSA BP A-L 32.2 mL/m2 LA Vol A4C MOD 65.5 mL LA Vol A2C MOD 49.8 mL LA Vol BP MOD 63.2 mL RA Volume RA Area A4C 23.0 cm2 RA ESV A4C (A-L) 71.7mL RA Vol/BSA A4C A-L RA Length A4C 6.2 cm RA ESV A4C (MOD) 68.0mL LV Diastology MV E Vmax 0.58 (0.4-1.3 m/s) Aortic Valve AoV Vmax 0.70 m/s LVOT Vmax 0.50 m/s AoV Peak Grad 1.9 mmHg LVOT Peak Grad 1.0 mmHg AoV Area (Vmax) 2.31 cm2 LVOT VTI 0.082 m AoV VTI 0.115 m LVOT Mean Grad 0.6 mmHg AoV Mean Brad. 0.52 m/s LVOT SV 26.32 mL AoV Mean Grad 1.2 mmHg LVOT Diam s 2.00 cm AoV Area (VTI) 2.29 cm2 Velocity Ratio 0.71 Mitral Valve MV DT 141 (160-240 msec) Pulmonary Valve PV Vmax 0.75 (0.5-1.5 m/s) RVOT Vmax 0.33 m/s PV Peak Grad 2.3 mmHg RVOT Peak Gr. 0.4 mmHg PV Mean Brad 0.43 m/s RVOT VTI 0.047 m PV Mean Grad 0.9 mmHg RVOT Mean Gr. 0.3 mmHg Tricuspid Valve RA Pressure 3.00 mmHg TR Vmax 1.96 m/s TV S' 0.17 m/s TR Peak Grad 15.3 mmHg RVSP (TR) 18.4 mmHg
== END ==
PROVIDERS: PCP Nurse Practitioner Family; Visit Provider Internal Medicine Cardiovascular Disease
DX: I10 Essential (primary) hypertension (principal); I42.9 Cardiomyopathy, unspecified; I48.91 Unspecified atrial fibrillation
CPT/HCPCS: 93306

== ENCOUNTER → 2023-07-20 12:58 | Outpatient (BNVA) | payer MEDICARE, SELFPAY | PROVIDERS: PCP Nurse Practitioner Family; Referring Provider Nurse Practitioner Family; Visit Provider Internal Medicine Cardiovascular Disease | DX: Z79.01 Long term (current) use of anticoagulants (principal); Z86.718 Personal history of other venous thrombosis and embolism; I48.91 Unspecified atrial fibrillation; I42.9 Cardiomyopathy, unspecified; C91.91 Lymphoid leukemia, unspecified, in remission; I50.21 Acute systolic (congestive) heart failure | CPT/HCPCS: 99214 ==

== ENCOUNTER → 2023-11-23 12:30 | Outpatient (BNVA) | payer MEDICARE, SELFPAY | PROVIDERS: PCP Nurse Practitioner Family; Visit Provider Internal Medicine Interventional Cardiology | DX: I48.91 Unspecified atrial fibrillation (principal); I50.21 Acute systolic (congestive) heart failure; I42.9 Cardiomyopathy, unspecified; I50.9 Heart failure, unspecified | CPT/HCPCS: 99213 ==

== ENCOUNTER → 2024-02-22 12:44 | Outpatient (BNVA) | payer MEDICARE, SELFPAY | PROVIDERS: PCP Nurse Practitioner Family; Referring Provider Nurse Practitioner Family; Visit Provider Internal Medicine Cardiovascular Disease | DX: I48.20 Chronic atrial fibrillation, unspecified (principal); I42.8 Other cardiomyopathies; I50.21 Acute systolic (congestive) heart failure; I42.9 Cardiomyopathy, unspecified; C91.91 Lymphoid leukemia, unspecified, in remission | CPT/HCPCS: 99213 ==

== ENCOUNTER → 2024-06-27 12:28 | Outpatient (BNVA) | payer MEDICARE, SELFPAY | PROVIDERS: PCP Nurse Practitioner Family; Visit Provider Internal Medicine Cardiovascular Disease | DX: I48.20 Chronic atrial fibrillation, unspecified (principal); I42.8 Other cardiomyopathies; I50.21 Acute systolic (congestive) heart failure | CPT/HCPCS: 99213 ==

== ENCOUNTER 2024-09-06 02:34 | Outpatient (CLI) | payer MEDICARE, SELFPAY ==
[2024-09-06 08:52] LABS: Anion Gap 7.4 mmol/L (3-11); BUN 46 mg/dL (7-18); CO2 30.6 mmol/L (21.0-32.0); CREATININE 2.2 mg/dL (0.70-1.30); Calcium 9.7 mg/dL (8.5-10.1); Calculated LDL 170 mg/dL (<100); Chloride 106 mmol/L (98-107); Cholesterol 254 mg/dL (<200); Estimated GFR 31.05 (mL/min/1.73m2); Glucose 100 mg/dL (74-106); HDL Cholesterol 55 mg/dL (40-60); Potassium 4.1 mmol/L (3.5-5.1); Sodium 144 mmol/L (136-145); Triglyceride 145 mg/dL (<150)
[2024-09-06 18:08] LABS: PSA, Screening 0.4 ng/mL (<=6.5)
== END 2024-09-06 02:35 | disposition home or self-care (01) ==
PROVIDERS: PCP Nurse Practitioner Family; Visit Provider Nurse Practitioner Family
DX: Z13.1 Encounter for screening for diabetes mellitus (principal); Z13.6 Encounter for screening for cardiovascular disorders; Z12.5 Encounter for screening for malignant neoplasm of prostate
CPT/HCPCS: 36415; 80048; 80061; 84153

== ENCOUNTER 2024-09-08 11:18 | Emergency (ER) | payer MEDICARE, SELFPAY ==
[2024-09-08 11:25] VITALS: BP 137/85; PULSE 90; RESP 20; O2SAT 91
--- NOTE | 2024-09-08 11:30 | DI.RAD_ITS ---
Exam(s) XR ANKLE LT COMPLETE EXAM: XR ANKLE LT COMPLETE CLINICAL HISTORY: pain s/p fall. TECHNIQUE: 2D digital imaging was performed. COMPARISON: CR XR ANKLE LT COMPLETE from 11/03/2020 FINDINGS: 3 views There is soft tissue swelling and there is a minimally displaced oblique fracture in the distal fibul a. There is also linear lucency at the tip of the medial malleolus which implies fracture at this le marta. Posterior malleolus unremarkable. Talar dome is intact and there is no widening of the ankle m ortise. Moderate size inferior calcaneal spur is noted as is a prominent enthesophyte on the posteri or calcaneus Achilles insertion site. IMPRESSION: Oblique mildly displaced fracture distal fibula Also appears to be a avulsion fracture tip of the medial malleolus. DATA REPOSITORY: RADIATION DOSE DELIVERED:
--- NOTE | 2024-09-08 11:38 | ED.GENADUL_ITS ---
Discharge Plan Disposition Patient Disposition: Home Condition: Stable Discharge Details Clinical Impression: Fracture of left ankle Primary Care Provider: Geovanni Luna ED Provider: Benjamin Dinh Home Meds and New Rx's Prescriptions: Continued melatonin 5 mg capsule 5 mg PO HS lorazepam 0.5 mg tablet 0.5 mg PO ONCE PRN Patient Comments: RX'd by [facility]. -hb famotidine [Pepcid] 20 mg tablet 20 mg PO DAILY Patient Comments: per [facility] acyclovir 400 mg tablet 400 mg PO BID Patient Comments: per [facility] losartan 50 mg tablet 50 mg PO DAILY Qty: 90 3RF metoprolol tartrate 100 mg tablet 50 mg PO BID Qty: 180 3RF torsemide 10 mg tablet 10 mg PO DAILY Qty: 60 3RF Eliquis 5 mg tablet 5 mg PO BID Qty: 180 3RF albuterol sulfate 90 mcg/actuation HFA aerosol inhaler 2 puff inhalation Q6H PRN (Reason: shortness of breath or wheezing) Qty: 8.5 1RF Discharge Instructions Additional Instructions: Your x-ray showed you have a fracture in your ankle, specifically the fibula Call orthopedics on Monday to arrange for a follow-up appointment If you feel more ill or have severe worsening pain return to the emergency department for Referrals: Venkatesh Bansal MD [ [facility] STAFF PHYSICIAN] - [facility] General Mode of arrival: ambulatory . Date/Time Provider Initiated Documentation: 09/08/24 11:21 . Limitations to Documentation: no limitations . Information obtained by: patient . History of Present Illness 74 year old M presents to the emergency department with the chief complaint of left ankle pain, described as moderate, Quality is described as aching, and is localized to the left and lower extremity. Patient reports no radiation. Patient started experiencing this day(s) (1) and it has been constant. Rest improves symptom(s), Movement worsens symptoms . Patient notes no other symptoms.; denies fever/chills, nausea/vomiting and shortness of breath. Patient did receive the following treatments prior to arrival, none Related Data Home Medications ?Medication ?Instructions ?Recorded ?Confirmed acyclovir 400 mg tablet 400 mg PO BID 02/17/21 09/08/24 famotidine 20 mg tablet (Pepcid) 20 mg PO DAILY 02/17/21 09/08/24 losartan 50 mg tablet 50 mg PO DAILY #90 tabs 09/11/23 09/08/24 metoprolol tartrate 100 mg tablet 50 mg (1/2 x 100 mg) PO BID #180 11/28/23 09/08/24 tabs torsemide 10 mg tablet 10 mg PO DAILY #60 tabs 01/29/24 09/08/24 Eliquis 5 mg tablet (apixaban) 5 mg PO BID #180 tabs 05/10/24 09/08/24 lorazepam 0.5 mg tablet 0.5 mg PO ONCE PRN 06/21/24 09/08/24 melatonin 5 mg capsule 5 mg PO HS 06/27/24 09/08/24 albuterol sulfate 90 mcg/actuation 2 puff inhalation Q6H PRN 07/29/24 09/08/24 aerosol inhaler shortness of breath or wheezing #8.5 grams Previous Rx's ?Medication ?Instructions ?Recorded losartan 50 mg tablet 50 mg PO DAILY #90 tabs 09/11/23 metoprolol tartrate 100 mg tablet 50 mg (1/2 x 100 mg) PO BID #180 11/28/23 tabs torsemide 10 mg tablet 10 mg PO DAILY #60 tabs 01/29/24 Eliquis 5 mg tablet (apixaban) 5 mg PO BID #180 tabs 05/10/24 albuterol sulfate 90 mcg/actuation 2 puff inhalation Q6H PRN 07/29/24 aerosol inhaler shortness of breath or wheezing #8.5 grams Allergies Allergy/AdvReac Type Severity Reaction Status Date / Time No Known Allergies Allergy Verified 09/08/24 11:27 General Stated Complaint: Orthopedic PERRY: 4 Review of Systems All systems reviewed & are unremarkable except as noted in HPI and below Constitutional Constitutional: Denies chills, Denies fever(s) and Denies weakness Cardiovascular Cardiovascular: Denies chest pain and Denies dyspnea Respiratory Respiratory: Denies cough and Denies dyspnea Gastrointestinal Gastrointestinal: Denies abdominal pain, Denies nausea and Denies vomiting Neurologic Neurologic: Denies weakness Exam Const General: no acute distress Orientation: alert [facility] Head: normal to inspection Ears: external ears normal General nose exam: external nose normal Mouth: moist mucous membranes Eyes General: appearance normal, both eyes and all related structures Neck Neck: normal visual inspection Resp Effort & Inspection: normal respiratory effort and able to speak in complete sentences Cardio Rate: regular rate Skin General skin exam: no rashes or lesions noted Neuro General: patient alert and patient oriented x3 Extrem General: full ROM and capillary refill normal Psych Mental Status: mental status grossly normal Course Vital Signs Vital signs: Vital Signs Pulse 90 09/08/24 11:25 Respiratory Rate 20 09/08/24 11:25 Blood Pressure 137/85 09/08/24 11:25 Pulse Oximetry 91 L 09/08/24 11:25 Pulse 90 09/08/24 11:25 Respiratory Rate 20 09/08/24 11:25 Respiratory Effort Normal, Non-Labored 09/08/24 11:29 Blood Pressure 137/85 09/08/24 11:25 Blood Pressure Position Sitting 09/08/24 11:25 Pulse Oximetry 91 L 09/08/24 11:25 Oxygen Delivery Method Room Air 09/08/24 11:25 Oxygen Flow Rate 0 09/08/24 11:25 Medical Decision Making 74-year-old male with a history of A-fib on [facility], who comes in with left ankle pain. He says he was walking in a field at his house yesterday and slipped on some snow, fell backwards and twisted his left ankle. He did not hit his head or have loss of consciousness. He has anterior left ankle pain since obtaining for evaluation. He is able to bear weight though with pain. He has no headaches, no neck or back pain no chest or abdominal pain. He localizes the pain to the anterior left ankle there is no visible or palpable deformity. He has no tenderness on the lateral, medial, posterior ankle. He has no pain in the or tenderness in the foot. He does have full range of motion of his ankle though does have pain when he extends his ankle. No tenderness in the near proximal or mid tib-fib. Suspect sprain will obtain x-rays to evaluate for possible fracture X-ray shows distal fibular fracture and question of an avulsion fracture of the medial malleolus, he is stable on has no tenderness in the medial malleolus with doubt this is an acute fracture. I did place him in a short posterior leg splint, he was given crutches and will follow-up with orthopedics, return precautions IMPRESSION: 1. Acute mildly displaced distal fibular fracture. 2. Avulsion fracture of the medial malleolus which could be chronic or acute on chronic Differential Diagnosis Differential Diagnosis: Fracture, sprain, contusion Quality:SDOH Health Related Social Needs: No Data to Display PFSH All Active Problems (Updated 09/08/24 @ 12:49 by Benjamin Dinh MD) Fracture of left ankle (Acute) Chronic kidney disease, stage 3 (Acute) Fatigue (Acute) Atrial fibrillation (Chronic) Acute systolic CHF (congestive heart failure) (Acute) Bronchospasm (Acute) Cardiomyopathy (Acute) Atrial fibrillation with rapid ventricular response (Acute) Deep vein thrombosis (DVT) of left lower extremity (Acute) CLL (chronic lymphocytic leukemia) (Acute) Acute kidney injury superimposed on chronic kidney disease (Acute) 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 (Acute) Dealt with by [facility] Hypertension (Chronic) MCI (mild cognitive impairment) (Acute) Elevated glucose (Acute) Anosmia (Chronic) Since chemotherapy 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) Status post stem cell transplant 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) Medical History Incisional hernia Cerebrovascular disease Leukoencephalopathy CKD (chronic kidney disease) CVA (cerebral vascular accident) Transient global amnesia Varicocele right Sexual function problem Incisional hernia of anterior abdominal wall without obstruction or gangrene (02/21/17) Essential hypertension (01/09/18) Depressive disorder Allergic rhinitis (06/02/15) Non-Hodgkin lymphoma Essential hypertension Surgical History S/P autologous bone marrow transplantation History of stem cell transplant Ulnar Nerve Transposition Laparotomy After perforation from ERCP EGD - MAC (06/05/18) Family History Mother , 93 No problems noted. Father , 74 AML (acute myeloblastic leukemia) Sister No problems noted. Brother Hyperlipidemia Maternal Grandfather Stroke Paternal Grandfather , 55 Lymphoma Maternal Grandmother , 90 Essential hypertension Paternal Grandmother , 90 No problems noted. Brother No problems noted. Brother No problems noted. Son No problems noted. Son No problems noted. 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 Pets and animals: Yes Pets and animals: cat(s) Sexually active: No Do you think of yourself as: straight/heterosexual Current gender identity: male What is your relationship status?: How often do you talk on the phone with friends or family?: three or more times per week How often do you get together with friends or relatives?: once per week Do you belong to any clubs or organized social groups?: yes Panel score (0-1 are the most socially isolated patients): 3 What type of physical activity do you participate in: other Details: PT,Gardening Duration: 30-45 minutes/day Frequency: 3-4 times per week Erica/Evangelical: Denominational Special erica needs: No Seatbelt use: always Helmet use: Yes Helmet use: always Drive intox or ride w/intox tanker truck driver: No Do you feel safe at home: Yes Do you feel safe in your relationship?: Yes
[2024-09-08 11:51] VITALS: BP 99/62; PULSE 107; RESP 16; TEMP 36.3; O2SAT 93
[2024-09-08] MEDS: Acetaminophen 500 MG TAB 1000 MG PO (11:53)
--- NOTE | 2024-09-08 12:32 | DI.VRAD_ITS ---
PROCEDURE INFORMATION: Exam: XR Left Ankle Exam date and time: 09/08/2024 12:06 PM Age: 74 years old Clinical indication: Other: Pain S/P fall TECHNIQUE: Imaging protocol: Radiologic exam of the left ankle. Views: 3 or more views. COMPARISON: CR XR ANKLE LT COMPLETE 11/03/2020 12:32 PM FINDINGS: Bones/joints: Displaced oblique fracture of the distal fibula. Cortical irregularity and lucency through the medial malleolus. Ankle mortise is congruent. No dislocation. Plantar calcaneal and achilles enthesopathy. Soft tissues: Ankle swelling. IMPRESSION: 1. Acute mildly displaced distal fibular fracture. 2. Avulsion fracture of the medial malleolus which could be chronic or acute on chronic. Dictated and Authenticated by: Hermes Martinez MD. Ordering:OMAR Alexander MD
[2024-09-08 12:47] VITALS: BP 83/60; PULSE 88; RESP 16; O2SAT 93
== END 2024-09-08 13:31 | disposition home or self-care (01) ==
PROVIDERS: Emergency Provider Emergency Medicine; PCP Nurse Practitioner Family
DX: S82.432A Displaced oblique fracture of shaft of left fibula, initial encounter for closed fracture (principal); M77.32 Calcaneal spur, left foot; I13.0 Hypertensive heart and chronic kidney disease with heart failure and stage 1 through stage 4 chronic kidney disease, or unspecified chronic kidney disease; N18.9 Chronic kidney disease, unspecified; I50.23 Acute on chronic systolic (congestive) heart failure; I48.91 Unspecified atrial fibrillation; C91.10 Chronic lymphocytic leukemia of B-cell type not having achieved remission; Z79.01 Long term (current) use of anticoagulants; Z87.891 Personal history of nicotine dependence; Z86.73 Personal history of transient ischemic attack (TIA), and cerebral infarction without residual deficits; W00.0XXA Fall on same level due to ice and snow, initial encounter; Y93.01 Activity, walking, marching and hiking; Y92.89 Other specified places as the place of occurrence of the external cause
CPT/HCPCS: 29515; 99283; 73610

== ENCOUNTER 2024-09-16 15:59 | Outpatient (CLI) | payer MEDICARE, SELFPAY ==
--- NOTE | 2024-09-16 09:57 | DI.RAD_ITS ---
Exam(s) XR ANKLE LT COMPLETE EXAM: XR ANKLE LT COMPLETE CLINICAL HISTORY: eval L ankle frx TECHNIQUE: 2D digital imaging was performed. Five views. Additional gravity stress views. COMPARISON: CR,XR XR ANKLE LT COMPLETE from 09/08/2024 FINDINGS: BONES: Mildly displaced distal fibular fracture again noted. Fracture of the tip of the medial malle olus is unchanged. No bony destructive lesion is seen. JOINTS:There is widening of the medial ankle mortise, increasing with gravity stress. SOFT TISSUE: Normal. IMPRESSION: Fractures of the lateral malleolus and tip of medial malleolus with widening of the medial ankle mort ise. DATA REPOSITORY: RADIATION DOSE DELIVERED:
== END 2024-09-16 16:00 | disposition home or self-care (01) ==
LOC: DIORS 15:59
PROVIDERS: PCP Nurse Practitioner Family; Referring Provider Nurse Practitioner Family; Visit Provider Student in an Organized Health Care Education/Training Program
DX: S82.892A Other fracture of left lower leg, initial encounter for closed fracture (principal); W01.0XXA Fall on same level from slipping, tripping and stumbling without subsequent striking against object, initial encounter; I48.91 Unspecified atrial fibrillation; Z79.01 Long term (current) use of anticoagulants; Z85.6 Personal history of leukemia
CPT/HCPCS: 99214; 73610

== ENCOUNTER 2024-09-17 01:17 | Outpatient (CLI) | payer MEDICARE, SELFPAY ==
--- NOTE | 2024-09-17 07:00 | DI.US_ITS ---
APPROVED REPORT EXAM: Comprehensive 2D, Doppler, and color-flow Echocardiogram Patient Location: Out-Patient Inspecting And Testing Lead Hand: Theresa Leach RDCS ([facility]) Indications: Check LV function, Cardiomyopathy Other Information Study Quality: Fair. Technically limited study due to body habitus. Conclusion Normal left ventricular wall thickness and chamber size. Ejection fraction is 40 to 45%. There is g lobal hypokinesis. Patient is in atrial fibrillation with [id number] variation which confounds ass essment Mildly enlarged right ventricle Both atria are moderately dilated Aortic valve is sclerotic and trileaflet with trace regurgitation Mild to moderate mitral regurgitation There is a small pericardial effusion Wall motion Left Ventricle The left ventricle is normal size. Left ventricular systolic function is decreased. There is normal l eft ventricular wall thickness. There is global hypokinesis of the left ventricle. There is no ventri cular septal defect visualized. LVEF is 40 to 45% Right Ventricle Right ventricle is mildly dilated. Right ventricle is mildly hypokinetic. Atria The left atrium size is moderately dilated Right atrium is moderately dilated. The interatrial septum is intact with no evidence for an atrial septal defect. Aortic Valve The Aortic valve is sclerotic. Aortic valve is trileaflet. There is no aortic valvular stenosis. Trac e aortic regurgitation. Mitral Valve The mitral valve is normal in structure. No evidence of mitral valve stenosis. Mild to moderate mitr al regurgitation. Tricuspid Valve The tricuspid valve is normal in structure. There is no tricuspid valve stenosis. Mild tricuspid reg urgitation. The RVSP is 32.6 mmHg. Pulmonic Valve The pulmonary valve is normal in structure. There is no pulmonic valvular stenosis. Trace pulmonic re gurgitation. Great Vessels The aortic root is normal in size. The ascending aorta is normal in size. Aortic arch is normal in ca liber. IVC is normal in size and collapses >50% with inspiration. Pericardium Small circumferential pericardial effusion. 2D Dimensions IVSD d PLAX 0.91 cm M: 0.6-1.2 Ao Root d 3.78 cm M: 3.1 - 3.7 LVPW d PLAX 0.90 cm M: 0.6 - 1.2 Ao Asc Diam d 3.28 cm M: 2.6 - 3.4 LVID d PLAX 4.10 cm M: 4.2 - 5.8 LVDs 3.43 cm M: 2.5 - 4.0 LV EF Teichholz 34.6 % FS 16.27 % LV EDV (Teich) 74.1 mL LV ESV (Teich) 48.5 mL M-Mode TAPSE 1.30 cm (M/F) >1.7 Auto EF LV EDV A4C 67.1 mL LV EDV A2C 67.7 mL LV EDV BP 68.4 mL LV ESV A4C 41.7 mL LV ESV A2C 44.0 mL LV ESV BP 42.3 mL LVEF(%) A4C 37.8 % LVEF(%) A2C 35.0 % LVEF(%) BP 38.2 % LV SV A4C 25.3 ml LV SV A2C 23.7 ml LV SV BP 26.1 ml LV CO A4C 2.1 L/min LV CO A2C 2.5 L/min LV CO BP 2.3 L/min HR A4C 82.35 BPM HR A2C 104.35 BPM LV EDV Index (BP) LA Volume LA Length A4C 5.5 cm LA Length A2C 5.9 cm LA Area A4C s 19.53 cm2 LA Area A2C s 22.67 cm2 LA Vol A4C A-L 59.37 mL LA Vol A2C A-L 74.37 mL LA Vol Biplane A-L 68.9 mL LA Vol/BSA A4C A-L LA Vol/BSA A2C A-L LA Vol/BSA BP A-L 31.8 mL/m2 LA Vol A4C MOD 53.4 mL LA Vol A2C MOD 71.9 mL LA Vol BP MOD 64.1 mL RA Volume RA Area A4C 24.0 cm2 RA ESV A4C (A-L) 76.0mL RA Vol/BSA A4C A-L RA Length A4C 6.4 cm RA ESV A4C (MOD) 73.3mL LV Diastology MV E' medial 0.097 (>0.07 m/s) MV E Vmax 0.98 (0.4-1.3 m/s) MV E/E' MED 10.12 (<14) MV E' lateral 0.108 (>0.1 m/s) MV E/E' LAT 9.12 (<14) MV E' Average 0.103 m/s MV E/E'(average) 9.59 Aortic Valve AoV Vmax 0.90 m/s LVOT Vmax 0.50 m/s AoV Peak Grad 3.3 mmHg LVOT Peak Grad 1.0 mmHg AoV Area (Vmax) 1.78 cm2 LVOT VTI 0.079 m AoV VTI 0.162 m LVOT Mean Grad 0.7 mmHg AoV Mean Brad. 0.67 m/s LVOT SV 25.44 mL AoV Mean Grad 2.0 mmHg LVOT Diam s 2.00 cm AoV Area (VTI) 1.57 cm2 AV Regurg Peak Gr. 3.25 mmHg Velocity Ratio 0.56 Mitral Valve MV DT 141 (160-240 msec) MR Vmax 0.81 m/s MR VTI 0.136 m MR Peak Grad 2.7 mmHg MR Mean Grad 1.2 mmHg Pulmonary Valve PV Vmax 0.87 (0.5-1.5 m/s) RVOT Vmax 0.36 m/s PV Peak Grad 3.1 mmHg RVOT Peak Gr. 0.5 mmHg PV Mean Brad 0.54 m/s RVOT VTI 0.058 m PV Mean Grad 1.3 mmHg RVOT Mean Gr. 0.3 mmHg Tricuspid Valve RA Pressure 3.00 mmHg TR Vmax 2.72 m/s TV S' 0.08 m/s TR Peak Grad 29.6 mmHg RVSP (TR) 32.6 mmHg
== END 2024-09-17 01:37 ==
LOC: DI 01:17
PROVIDERS: PCP Nurse Practitioner Family; Visit Provider Internal Medicine Cardiovascular Disease
DX: I42.9 Cardiomyopathy, unspecified (principal); I35.1 Nonrheumatic aortic (valve) insufficiency
CPT/HCPCS: 93306

== ENCOUNTER 2024-09-18 11:10 | Day surgery (SDC) | payer MEDICARE, SELFPAY ==
[2024-09-18] VITALS (17 sets, daily range): BP systolic 80–149; BP diastolic 38–129; PULSE 73–146; RESP 14–25; TEMP 35.7–36.4; O2SAT 92–99; BMI 30.8
[2024-09-18] MEDS: Celecoxib 200 MG CAP 400 MG PO (12:02)
[2024-09-18] MEDS: Normal Saline 1,000 ML 80 ML IV (12:06)
--- NOTE | 2024-09-18 12:30 | W.ANESPRE ---
General Info Date of Service Date Performed: 09/18/24 Height: 5 ft 11 in Weight: 100.3 kg Body Mass Index (BMI): 30.8 Surgical Procedure: Operation Date: 09/18/24 15:40 Proposed Procedure Side Surgeon p Ankle ORIF Left Venkatesh Bansal MD Meds Allergies and Home Medications Allergies Allergy/AdvReac Type Severity Reaction Status Date / Time No Known Allergies Allergy Verified 09/18/24 11:44 Home Medication ?Medication ?Instructions ?Recorded acyclovir 400 mg tablet 400 mg PO BID 02/17/21 famotidine 20 mg tablet (Pepcid) 20 mg PO DAILY 02/17/21 losartan 50 mg tablet 50 mg PO DAILY #90 tabs 09/11/23 metoprolol tartrate 100 mg tablet 50 mg (1/2 x 100 mg) PO BID #180 11/28/23 tabs torsemide 10 mg tablet 10 mg PO DAILY #60 tabs 01/29/24 Eliquis 5 mg tablet (apixaban) 5 mg PO BID #180 tabs 05/10/24 lorazepam 0.5 mg tablet 0.5 mg PO ONCE PRN 06/21/24 melatonin 5 mg capsule 5 mg PO HS 06/27/24 albuterol sulfate 90 mcg/actuation 2 puff inhalation Q6H PRN 07/29/24 aerosol inhaler shortness of breath or wheezing #8.5 grams acetaminophen 500 mg tablet 1,000 mg (2 x 500 mg) PO TID #90 09/18/24 tabs ibuprofen 600 mg tablet 600 mg PO TID PRN #90 tabs 09/18/24 tramadol 50 mg tablet 50 mg PO Q4H PRN #20 tabs 09/18/24 Current Visit Medications: Current Medications Generic Name Dose Route Start Last Admin Trade Name Freq PRN Reason Stop Dose Admin Acetaminophen 1,000 mg 09/18/24 06:00 Acetaminophen 500 Mg Tab PO 09/18/24 23:59 PREOP ARANZA Celecoxib 400 mg 09/18/24 06:00 09/18/24 12:02 Celecoxib 200 Mg Cap PO 09/18/24 23:59 400 mg PREOP ARANZA Administration Cefazolin Sodium/Dextrose 2 gm in 50 mls @ 100 mls/hr 09/18/24 06:00 Ancef Duplex IVPB 09/18/24 23:59 PREOP ARANZA Sodium Chloride 1,000 mls @ 80 mls/hr 09/18/24 07:15 09/18/24 12:06 Saline 1000ml Bag IV 10/18/24 07:14 80 mls/hr INFUSION ARANZA Administration IV Miscellaneous Supplies 1 each 09/18/24 06:00 Iv Access IV 09/18/24 23:59 DIRECTED ARANZA Sodium Chloride 0 ml 09/18/24 06:00 Normal Saline Flush 10 Ml Syr IV 09/18/24 23:59 PRN PRN Sodium Chloride 0 ml 09/18/24 06:00 Normal Saline 10 Ml Vial IJ 09/18/24 23:59 DIRECTED PRN Sterile Water 0 ml 09/18/24 06:00 Water,Injection,Sterile 10 Ml Vial IJ 09/18/24 23:59 DIRECTED PRN PFSH Active Problems Active Problems: Problem Status Onset Code Fracture of left ankle Acute 09/08/24 S82.892A Chronic kidney disease, stage 3 Acute N18.30 Fatigue Acute R53.83 Atrial fibrillation Chronic I48.91 Acute systolic CHF (congestive heart failure) Acute I50.21 Bronchospasm Acute J98.01 Cardiomyopathy Acute I42.9 Atrial fibrillation with rapid ventricular response Acute I48.91 Deep vein thrombosis (DVT) of left lower extremity Acute I82.402 CLL (chronic lymphocytic leukemia) Acute Acute kidney injury superimposed on chronic kidney disease Acute N17.9, N18.9 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 Acute C85.89 Hypertension Chronic I10 MCI (mild cognitive impairment) Acute G31.84 Elevated glucose Acute R73.09 Anosmia Chronic R43.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 Medical History Medical History Incisional hernia Cerebrovascular disease Leukoencephalopathy CKD (chronic kidney disease) CVA (cerebral vascular accident) Transient global amnesia Varicocele right Sexual function problem Incisional hernia of anterior abdominal wall without obstruction or gangrene (02/21/17) Essential hypertension (01/09/18) Depressive disorder Allergic rhinitis (06/02/15) Non-Hodgkin lymphoma Essential hypertension Surgical History Surgical History S/P autologous bone marrow transplantation History of stem cell transplant Ulnar Nerve Transposition Laparotomy After perforation from ERCP EGD - MAC (06/05/18) Tobacco Smoking/Tobacco Use Status: Former Tobacco Use Passive smoking exposure: No Second hand exposure: Yes Alcohol Alcohol Intake: former Substance Use Substance use: Never Substance use type: does not use Vital Signs and Lab Results Vital Signs Most Recent Vital Signs in EMR: Most Recent Vital Signs Temp Pulse Resp BP Pulse Ox 35.7 C L 103 H 20 120/93 H 99 09/18/24 11:29 09/18/24 11:29 09/18/24 11:29 09/18/24 11:29 09/18/24 11:29 Lab Results Blood Type / Crossmatch: No Data to Display Complete Blood Count: No Data to Display Complete Metabolic Panel: Sodium 144 mmol/L (136-145) 09/06/24 08:12 Potassium 4.1 mmol/L (3.5-5.1) 09/06/24 08:12 Chloride 106 mmol/L (98-107) 09/06/24 08:12 Carbon Dioxide 30.6 mmol/L (21.0-32.0) 09/06/24 08:12 BUN 46 mg/dL (7-18) H 09/06/24 08:12 Creatinine 2.2 mg/dL (0.70-1.30) H 09/06/24 08:12 Est GFR (CKD-EPI 2020) 31.05 (mL/min/1.73m2) 09/06/24 08:12 Calcium 9.7 mg/dL (8.5-10.1) 09/06/24 08:12 Glucose 100 mg/dL (74-106) 09/06/24 08:12 Liver Function Panel: No Data to Display Coagulation Panel: No Data to Display Cardiac Panel: No Data to Display Arterial Blood Gas: No Data to Display Venous Blood Gas: No Data to Display Pancreas Panel: No Data to Display Thyroid Panel: No Data to Display Infectious Disease: No Data to Display Blood Cultures: No Data to Display Toxicology Panel: No Data to Display Imaging and Studies Imaging and Studies Study information below may be from another EMR and interpreted by another provider. Please see original notes in EMR for more complete details. EKG Summary: 03/16/23: Exam: Resting ECG Reason for Exam: afib Patient Location: O HR:91 bpm ECG Measurements Heart Rate 91 AXIS DE [id number] P [id number] QRSd 89 QRS -10 QT 365 T-28 QTc 450 Conclusion Atrial fibrillation...V-rate 65-122, irreg A-activity Low voltage, precordial leads...precordial leads <1.0mV Nonspecific T abnormalities, anterior leads...T <-0.10mV, V2-V4 Echocardiogram Summary: 09/17/24: Conclusion Normal left ventricular wall thickness and chamber size. Ejection fraction is 40 to 45%. There is global hypokinesis. Patient is in atrial fibrillation with [id number] variation which confounds assessment Mildly enlarged right ventricle Both atria are moderately dilated Aortic valve is sclerotic and trileaflet with trace regurgitation Mild to moderate mitral regurgitation There is a small pericardial effusion Carotid Artery Summary:: 02/26/20: Exam(s) a US:US carotid EXAM: US CAROTID CLINICAL HISTORY: tia TECHNIQUE: Ultrasound performed using standard protocol. COMPARISON: US US ECHOCARDIOGRAM from 02/26/2020 FINDINGS: Duplex evaluation of the carotid circulation was performed. There is minimal visible atheromatous plaque in the carotid bulbs bilaterally. Flow velocities in the common, internal, and external carotid arteries are within normal limits bilaterally. There is bilateral antegrade vertebral flow. IMPRESSION: No evidence of a hemodynamically significant carotid stenosis. Anesthesia Assessment and Plan Anesthesia History Personal History: No History of Anesthesia Complications Family History: No Family History of Anesthesia Complications Exercise Tolerance Exercise Tolerance: Metabolic Equivalents>4 Pertinent Negatives Pertinent Negatives: No Symptoms of GERD, No Major Cardiovascular Symptoms or Complaints and No Major Pulmonary Symptoms or Complaints Cardiac & Pulmonary Exam Cardiac Exam: Normal S1/S2 Heart Sounds (Irregular) Pulmonary Exam: Clear Bilateral Breath Sounds Implantable Cardiac Device Does patient have a Pacemaker or an ICD?: No Airway Exam Known Difficult Airway: No Mallampati Class: 1 Mouth Opening: Normal (> 3cm) Thyromental Distance: Greater than 3 cm Neck Range of Motion: Full ROM Neck Circumference: Normal Teeth Condition: Normal Dentition ASA Classification ASA Score: ASA 3 Emergency Case?: No NPO Status NPO Status: NPO Clears >2 hours, Solids >8 hours Anesthesia Plan Resuscitation Status: Full Code Anesthesia Technique: General Anesthesia Airway Planned: Endotracheal Tube Monitors Used: Standard Monitors and SedLine
--- NOTE | 2024-09-18 12:41 | PDOC.DSDIS_ITS ---
Date of service: 09/18/24 Discharge Plan Disposition Patient Disposition: Home Condition: Good Discharge Details Reason For Visit: ORIF L ankle Attending Provider: Venkatesh Bansal Primary Care Provider: Geovanni Luna Home Meds and New Rx's Prescriptions: New acetaminophen 500 mg tablet 1,000 mg PO TID Qty: 90 3RF tramadol 50 mg tablet 50 mg PO Q4H PRNQty: 20 0RF ibuprofen 600 mg tablet 600 mg PO TID PRNQty: 90 3RF Continued melatonin 5 mg capsule 5 mg PO HS lorazepam 0.5 mg tablet 0.5 mg PO ONCE PRN Patient Comments: RX'd by [facility]. -hb famotidine [Pepcid] 20 mg tablet 20 mg PO DAILY Patient Comments: per [facility] acyclovir 400 mg tablet 400 mg PO BID Patient Comments: per [facility] losartan 50 mg tablet 50 mg PO DAILY Qty: 90 3RF metoprolol tartrate 100 mg tablet 50 mg PO BID Qty: 180 3RF torsemide 10 mg tablet 10 mg PO DAILY Qty: 60 3RF Eliquis 5 mg tablet 5 mg PO BID Qty: 180 3RF albuterol sulfate 90 mcg/actuation HFA aerosol inhaler 2 puff inhalation Q6H PRN (Reason: shortness of breath or wheezing) Qty: 8.5 1RF Discontinued acetaminophen 500 mg capsule 500 mg PO Q6H PRN Discharge Instructions Additional Instructions: Ankle ORIF Discharge Instructions Activity: You are NON WEIGHT BEARING. You should keep the leg elevated as much as possible. You may wiggle your toes and move your hip and knee. Dressings: You should keep your splint clean and dry. Do NOT get wet or dirty. If you have issues with your splint, please call the office at [phone] or the hospital after hours. Medications: - You should take Tylenol and Ibuprofen around the clock for baseline pain. - You have been prescribed a stronger medication tramadol for breakthrough pain. Follow-up: 2 weeks Referrals: Venkatesh Bansal MD [ [facility] STAFF PHYSICIAN] - Equipment/Supplies: Partial Weight Bearing Crutches Activity:: Elevate Remove Dressings/Wound Care:: Do Not Remove Diet:: As Tolerated Discharge Orders Discharge Orders: Discharge Order (Routine); Ordered 09/18/24 Ordered By: Jaya Andrade DS: Diagnosis Discharge Diagnosis (1) Fracture of left ankle: Status: Acute
[2024-09-18] MEDS: ceFAZolin 2 GM/50 ML BAG IVPB (13:40)
[2024-09-18] MEDS: Bupivacaine 0.5% Pres-Free W/EPI 30 ML VIAL (14:32)
--- NOTE | 2024-09-18 15:03 | DI.RAD_ITS ---
Exam(s) XR ANKLE LT 2V EXAM: XR ANKLE LT 2V CLINICAL HISTORY: Fracture of left ankle. TECHNIQUE: 2D and realtime digital imaging was performed. COMPARISON: CR XR ANKLE LT COMPLETE from 09/16/2024 FINDINGS: Hard copy images show placement of a fixation plate along the lateral aspect of the distal fibula fo r fracture fixation. The alignment appears satisfactory. Please see procedure note for details. Fluoro time: 24.6seconds RADIATION DOSE DELIVERED: logan Eng=0.58 mGy
--- NOTE | 2024-09-18 15:44 | W.PM.OP ---
Operative Note Operative Note PRE-OP DIAGNOSIS: Left Ankle Fracture - Lateral Malleolus POST-OP DIAGNOSIS: same PROCEDURE: Open Reduction and Internal Fixation of LEFT Ankle - Lateral Malleolus SURGEON: Venkatesh Bansal SOFTWARE SECURITY CONSULTANT: Jaya Andrade ANESTHESIA TYPE: General LMA/ETT Refer to Anesthesia Record ESTIMATED BLOOD LOSS: 50 PATHOLOGY: none sent TOURNIQUET TIME: 0 COMPLICATIONS: None Patient was transported to: PACU Patient's condition: stable Indications: Riley is a 74-year-old male who presented to the Emergency Department after a fall. X-rays confirmed the diagnosis of a lateral malleolus ankle fracture, left ankle. He was seen in follow-up in the office for a stress view was obtained and showed notable widening of the medial clear space with lateral translation of the talus making this an unstable fracture. I reviewed the possible treatment options and given the fracture, but given the findings on the stress view, I recommended operative fixation. I discussed the technical details of the surgery. I reviewed the risks such as bleeding, infection, pain, stiffness, malunion, nonunion, hardware prominence, hardware faiilure, malrotation, damage to nerves and vessels, blood clot. Despite these risks, he agreed to proceed. Findings: There was a comminuted fracture of the fibula. Given the orientation of the fracture this was unable to be lag together and therefore this was reduced, held reduced, and then secured with a lateral fibular plate. Procedure Description: Riley was greeted in the preoperative area. Consent was reviewed and signed. Once in the operating room, general anesthesia was administered. He was positioned in the supine position with the operative side placed onto a bone foam ramp. All bony prominences were well padded. Arms were placed out to the side, padded, and secured. Prophylactic antibiotics, Cefazolin 2 grams, was given for prophylactic antibiotics. A timeout was performed for safe surgery. The left leg was prepped with Chloraprep. The leg was draped with a stockinette and extremity drape. A timeout was performed for safe surgery. A longitudinal incision was then made along the lateral border of the left ankle overlying the fibula. There was notable ecchymosis and engorgement of the soft tissues from bleeding and swelling although much better than in the office 2 days prior with notable wrinkling of the skin. This incision was taken to the skin only. Deep tissues were dissected with Metzenbaum scissors. The lateral fibula was identified and the soft tissues overlying the fibula were then dissected and elevated with use of Ashby elevator and electrocautery. There is no passing nervous structures identified. The fracture was identified and showed more comminution than appreciated. There is a posterior fracture fragment which is quite thin. There is a short oblique fracture line proximal to the tibiotalar joint. The fracture was opened up and fibrous tissue was debrided from the fracture ends. Soft tissue was removed from the ends of the fracture for better visualization. Utilizing lobster-claw clamp I then performed reduction by applying traction to the distal fragment and manipulating the fragment out of external rotation and shortening. This was able to be held with a clamp. I then attempted to place a lag screw across these 2 fragments. However, given the position of the fracture orientation and the comminution of the bone in this area, I was unable to secure with a single screw without fracturing the bone some more. I then selected a distal fibula plate from the [employer] very wrangle system. This was sized appropriately placed onto the lateral side of the fibula. With the plate in position I then reduced the fracture fragments incorporating the plate. A single nonlocking screw was placed distal the fracture fragment and then a second nonlocking screw was placed proximal. Clamps were removed and x-ray showed appropriate positioning of the fracture fragment. There may be some very slight lateral translation and shortening of about 1 mm but this was kept in place. Plate also had a slightly anterior position although is still contacting bone and so was also left in place. For 2.7 mm locking screws were placed distally to the plate. An additional 3 nonlocking screws were placed proximal to the fracture fragment, each with excellent fixation. Final x-rays were then obtained. Stress view was also obtained which showed no widening of the medial clear space or the tibial?fibula overlap. The wound was then thoroughly irrigated. The fascia and deep tissue overlying the distal aspect the plate was closed with 0 Vicryl. The deep subcutaneous tissues were closed with 2-0 Vicryl. However, this tissue was quite poor and engorged with blood and very woody. However, it was able to be closed so there is no tension on the skin. The skin was closed with a running simple?horizontal mattress suture with 3-0 nylon. There was no significant bleeding. No tourniquet was used. The wound was dressed with Xeroform, Mepilex dressing. An Surendra wrap was applied. He was then placed in a fracture walker boot. At the end of the case, all counts were correct. Riley tolerated the procedure well without known complication and was taken to the PACU for recovery. Physical therapy will start post-operatively, partial weightbearing with the fracture walker boot. Anticoagulation will start tonight. Date of Procedure: 09/18/24
--- NOTE | 2024-09-18 16:31 | W.ANESPOSTOP ---
Postoperative Evaluation Date, Time and Location Date Performed: 09/18/24 Time Performed: 16:22 Patient Location: Day Surgery Unit Vital Signs Most Recent Imported Vital Signs: Most Recent Vital Signs Temp Pulse Resp BP Pulse Ox 36.4 C L 146 H 15 103/63 98 09/18/24 15:58 09/18/24 15:57 09/18/24 16:00 09/18/24 15:57 09/18/24 16:00 Pain Score Most Recent Pain Score: Most Recent Pain Score Pain Level 0 09/18/24 15:58 Assessment Mental Status: Awake (Alert & Oriented to Patient Baseline) Airway and Respiratory Function: Patent airway with normal (patient baseline) respiratory exam Cardiovascular Function: Hemodynamically Stable Hydration Status: Adequately Hydrated Nausea & Vomiting: No Nausea or Vomiting Pain: Pt. Denies Any Pain Peripheral Nerve Block: Patient did not receive a nerve block
[2024-09-18] MEDS: Acetaminophen 325 MG TAB 650 MG PO (16:46)
--- NOTE | 2024-09-18 16:49 | PT.INIE ---
PT Notes Visit Reasons: ORIF L ankle Physical Therapy Day Surgery Initial Evaluation Date: 09/18/2024 Referring Doctor: Venkatesh Bansal MD PT Orders: PT CONSULT: S/P ortho Surgery. S/P ankle fracture fixation. PWB with walker boot and walker Precautions: PWB through the L LE with fracture boot and FWW. Patient Profile/Admitting Diagnosis: Win is a 74-year-old male who sustained a fracture of the lateral malleolus at the tip of the medial malleolus on the left side from a twist injury a week ago. He is status post ORIF on postoperative day 0. PMHX: All Active Problems (Updated 09/16/24 @ 10:11 by EMMETT Bahena) Fracture of left ankle (Acute 09/08/24) Roberts C distal fibula fractureChronic kidney disease, stage 3 (Acute) Fatigue (Acute) Atrial fibrillation (Chronic) Acute systolic CHF (congestive heart failure) (Acute) Bronchospasm (Acute) Cardiomyopathy (Acute) Atrial fibrillation with rapid ventricular response (Acute) Deep vein thrombosis (DVT) of left lower extremity (Acute) CLL (chronic lymphocytic leukemia) (Acute) Acute kidney injury superimposed on chronic kidney disease (Acute) Primary HOME HELP AIDE lymphoma (Acute) Dealt with by [facility] (Chronic) MCI (mild cognitive impairment) (Acute) Elevated glucose (Acute) Anosmia (Chronic) Since chemotherapy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) Status post stem cell transplant 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) Medical History Incisional hernia Cerebrovascular disease Leukoencephalopathy CKD (chronic kidney disease) CVA (cerebral vascular accident) Transient global amnesia Varicocele right Sexual function problem Incisional hernia of anterior abdominal wall without obstruction or gangrene (02/21/17) Essential hypertension (01/09/18) Depressive disorder Allergic rhinitis (06/02/15) Non-Hodgkin lymphoma Essential hypertension Surgical History S/P autologous bone marrow transplantation History of stem cell transplant Ulnar Nerve Transposition Laparotomy After perforation from ERCPEGD - MAC (06/05/18) Social History/Home Situation: Lives with who had been able to leave while she did grocery shopping. Equipment Owned/DME: None Subjective: Pleasant and cooperative. Objective: General Observation: HUMBERTO wrap to L ankle and leg. junaid and Nurse Miladis present in room during the first part of evaluation Mental Status: A and O as to person. Needed moderate to maximal verbal cueing with movement sequence and WB recommendation Pain: NOne reported ROM: Right Lower Extremity: Hip flexion WFL. Hip abduction WFL. Knee flexion WFL. Ankle dorsiflexion WFL. Ankle plantarflexion WFL. Left Lower Extremity: Hip flexion WFL. Hip abduction WFL. Knee flexion WFL. Ankle dorsiflexion NT. Ankle plantarflexion NT. Strength: Right Lower Extremity: Hip flexors 5/5. Hip abductors 5/5. Knee flexors 5/5. Knee extensors 5/5. Ankle dorsiflexors 5/5. Ankle plantarflexors 5/5. Left Lower Extremity:Hip flexors 5/5. Hip abductors 5/5. Knee flexors 5/5. Knee extensors 4-/5. Ankle dorsiflexors NT. Ankle plantarflexors NT. Sensation: Intact as to pain and light pressure in bilateral lower extremiies Bed Mobility/Transfers: Moderate cueing provided for use of B hands as needed for support, movement sequence, AD management, and posture to reduce fall risk and minimize pain report Supine to sit minimal assist Sit to stand contact guard assist with FWW Stand to sit standby assist with FWW Bed to chair contact-guard assist with FWW Gait: Facilitated safe and correct performance of partial weight bearing through left lower extremity using front wheel walker covering a distance of 30 feet +30 feet requiring contact-guard assist and maximal verbal cueing for correct gait sequence, appropriate weight bearing precaution on the left, directional changes, weight distribution, and posture to reduce fall risk. Stairs: Guided patient with safe and correct negotiation of 2 x 6 inch steps and 3 x 4 inch steps while holding on to a rail and using a crutch on the other side with maximal verbal cueing provided for correct movement sequence, appropriate weight bearing precaution, and as well as AD management and hand placement to reduce fall risk. Balance: Static Sitting: Normal Dynamic Sitting: Good Static Standing: Fair Dynamic Standing: Poor due to WB precaution Special Tests: Mobility Limitations Standardized Measure [facility] 6 clicks Basic Mobility Inpatient Short Form: Raw Score: 21 CMS Score: 29% deficit Informed Consent/Education: Patient instructed in purpose of PT consult. understands importance of 100% compliance with WB precaution during mobility performance using FWW. Demonstrated fair ability to don fracture boot on the L LE. Nurse Miladis and PT reinforced important safety tips to maximize mastery of putting on fracture boot. Assessment: Patient requires the use of a front-wheeled walker and the supervision of to maximize compliance to weight-bearing precaution and ensure safety all of indoor ambulation and stair negotiation. Patient presents with clinical signs and symptoms consistent with current/admitting diagnoses that have resulted to mobility limitations, gait instability, generalized weakness, and impairment of motor control as demonstrated by the following impairment level findings: 1. Decreased strength to left ankle major muscle groups 2. Impaired standing balance 3. Limitation of joint range of motion in left ankle due to post op status Impairments are contributing to the following functional limitations: 1. Inability to safely ambulate without assistive device 2. Increase completion time for mobility ADL performance 3. Increased fall risk Patient is assessed as a 23720 moderate complexity based on the following: History: 74-year-old male with impairment level findings, functional limitations, and past medical history as indicated above Examination: Demonstrable impairment in strength, balance, and mobility level with underlying impairments and functional limitations as documented above Presentation: Evolving Decision Makin moderate complexity Goals: N/A. PT evaluation and 1-2 treatment sessions only for functional mobility training using recommended AD and for HEP instruction. Plan of Care/Treatment Plan: N/A. PT evaluation and 1-2 treatment session only for functional mobility training using recommended AD and for HEP instruction. DISCHARGE RECOMMENDATIONS: Home when medically cleared by orthopedic surgeon. Recommend outpatient PT services in order to optimize functional mobility outcomes and facilitate return to independent community ambulation without an assistive device. TREATMENT CODE/TIME: 07236 x 20 minutes for 1 unit, 39231 x 17 minutes for 1 unit (16: 49?17: 26). Thank you for the opportunity to participate in the care of this patient. Please sign an return this page within 30 days if you agree with the above POC. Thank you! Physician Signature Date [facility] Thank you for the opportunity to participate in the care of this patient. Chela Kang PT, DPT, CLT [facility] [place], [place]
== END 2024-09-18 17:45 | disposition home or self-care (01) ==
PROVIDERS: PCP Nurse Practitioner Family; Visit Provider Student in an Organized Health Care Education/Training Program
PROC: (CPT 27792; principal; 2024-09-18 15:30)
DX: S82.62XA Displaced fracture of lateral malleolus of left fibula, initial encounter for closed fracture (principal); X50.1XXA Overexertion from prolonged static or awkward postures, initial encounter
CPT/HCPCS: 27792; C1889; 76000; 97162; 97530; 73600; J0690; J1100; J1805; J2003; J2405; J2704; J3010

== ENCOUNTER 2024-09-30 15:16 | Outpatient (CLI) | payer MEDICARE, SELFPAY ==
--- NOTE | 2024-09-30 10:30 | DI.RAD_ITS ---
Exam(s) XR ANKLE LT COMPLETE EXAM: XR ANKLE LT COMPLETE CLINICAL HISTORY: left ankle ORIF. TECHNIQUE: 2D digital imaging was performed. Three images were obtained. AP, lateral and oblique vi ews were obtained. COMPARISON: CR XR ANKLE LT COMPLETE from 09/16/2024 XA XR ANKLE LT 2V from 09/18/2024 FINDINGS: BONES: There are stable post operative changes of a sideplate and screws transfixing the distal fibul ar fracture present. The fracture line is still present. No new fracture or dislocation. There has been no change in alignment of the osseous fragment at the tip of the medial malleolus. There is a s mall plantar calcaneal spur. There is an enthesophyte at the posterior calcaneus. JOINTS: The joint spaces are well maintained. SOFT TISSUE: Normal. IMPRESSION: Stable postoperative changes. DATA REPOSITORY: RADIATION DOSE DELIVERED:
== END 2024-09-30 15:17 | disposition home or self-care (01) ==
LOC: DIORS 15:16
PROVIDERS: PCP Nurse Practitioner Family; Referring Provider Nurse Practitioner Family; Visit Provider Physician Assistant
DX: S82.892D Other fracture of left lower leg, subsequent encounter for closed fracture with routine healing; T81.31XD Disruption of external operation (surgical) wound, not elsewhere classified, subsequent encounter; W19.XXXD Unspecified fall, subsequent encounter; M25.472 Effusion, left ankle
CPT/HCPCS: 29515; 97605; 73610

== ENCOUNTER → 2024-10-03 14:12 | Outpatient (BNVA) | payer MEDICARE, SELFPAY | PROVIDERS: PCP Nurse Practitioner Family; Referring Provider Nurse Practitioner Family; Visit Provider Student in an Organized Health Care Education/Training Program | DX: T81.31XA Disruption of external operation (surgical) wound, not elsewhere classified, initial encounter (principal); X58.XXXA Exposure to other specified factors, initial encounter; S82.892A Other fracture of left lower leg, initial encounter for closed fracture | CPT/HCPCS: 99024 ==

== ENCOUNTER → 2024-10-07 12:51 | Outpatient (BNVA) | payer MEDICARE, SELFPAY | PROVIDERS: PCP Nurse Practitioner Family; Referring Provider Student in an Organized Health Care Education/Training Program; Visit Provider Physician Assistant | DX: S82.892A Other fracture of left lower leg, initial encounter for closed fracture (principal); T81.31XA Disruption of external operation (surgical) wound, not elsewhere classified, initial encounter; X58.XXXA Exposure to other specified factors, initial encounter | CPT/HCPCS: 99024 ==

== ENCOUNTER 2024-10-10 16:16 | Observation (INO) | payer MEDICARE, SELFPAY ==
[2024-10-10] VITALS (30 sets, daily range): BP systolic 104–143; BP diastolic 75–105; PULSE 84–120; RESP 14–24; TEMP 36–36.7; O2SAT 93–99; BMI 33.1
[2024-10-10] MEDS: Lactated Ringers 1,000 ML 80 ML IV (12:57)
--- NOTE | 2024-10-10 13:06 | W.ANESPRE ---
General Info Date of Service Date Performed: 10/10/24 Height: 5 ft 10 in Weight: 104.9 kg Body Mass Index (BMI): 33.1 Surgical Procedure: Operation Date: 10/10/24 14:40 Proposed Procedure Side Surgeon p I&D of Ankle, Possible Secondary Closure, +/- Wound VAC Placement Left Venkatesh Bansal MD Meds Allergies and Home Medications Allergies Allergy/AdvReac Type Severity Reaction Status Date / Time No Known Allergies Allergy Verified 10/10/24 12:29 Home Medication ?Medication ?Instructions ?Recorded acyclovir 400 mg tablet 400 mg PO BID 02/17/21 famotidine 20 mg tablet (Pepcid) 20 mg PO DAILY 02/17/21 metoprolol tartrate 100 mg tablet 50 mg (1/2 x 100 mg) PO BID #180 11/28/23 tabs Eliquis 5 mg tablet (apixaban) 5 mg PO BID #180 tabs 05/10/24 lorazepam 0.5 mg tablet 0.5 mg PO ONCE PRN 06/21/24 melatonin 5 mg capsule 5 mg PO HS 06/27/24 albuterol sulfate 90 mcg/actuation 2 puff inhalation Q6H PRN 07/29/24 aerosol inhaler shortness of breath or wheezing #8.5 grams acetaminophen 500 mg tablet 1,000 mg (2 x 500 mg) PO TID #90 09/18/24 tabs ibuprofen 600 mg tablet 600 mg PO TID PRN #90 tabs 09/18/24 torsemide 10 mg tablet 10 mg PO DAILY #60 tabs 09/18/24 tramadol 50 mg tablet 50 mg PO Q4H PRN #20 tabs 09/18/24 losartan 50 mg tablet 50 mg PO DAILY #90 tabs 09/20/24 ciprofloxacin HCl 750 mg tablet 750 mg PO BID #14 tabs 10/03/24 Current Visit Medications: Current Medications Generic Name Dose Route Start Last Admin Trade Name Freq PRN Reason Stop Dose Admin Cefazolin Sodium 3,000 mg/ 100 mls @ 200 mls/hr 10/10/24 06:00 Sodium Chloride IV 10/10/24 23:59 PREOP ARANZA Ringer's Solution 1,000 mls @ 80 mls/hr 10/10/24 12:10 10/10/24 12:57 IV 11/09/24 12:09 80 mls/hr INFUSION ARANZA Administration IV Miscellaneous Supplies 1 each 10/10/24 06:00 Iv Access IV 10/10/24 23:59 DIRECTED ARANZA Sodium Chloride 0 ml 10/10/24 06:00 Normal Saline Flush 10 Ml Syr IV 10/10/24 23:59 PRN PRN Sodium Chloride 0 ml 10/10/24 06:00 Normal Saline 10 Ml Vial IJ 10/10/24 23:59 DIRECTED PRN Sterile Water 0 ml 10/10/24 06:00 Water,Injection,Sterile 10 Ml Vial IJ 10/10/24 23:59 DIRECTED PRN PFSH Active Problems Active Problems: Problem Status Onset Code Wound dehiscence, surgical Acute T81.31XA Chronic kidney disease, stage 3 Acute N18.30 Fatigue Acute R53.83 Atrial fibrillation Chronic I48.91 Acute systolic CHF (congestive heart failure) Acute I50.21 Bronchospasm Acute J98.01 Cardiomyopathy Acute I42.9 Atrial fibrillation with rapid ventricular response Acute I48.91 Deep vein thrombosis (DVT) of left lower extremity Acute I82.402 CLL (chronic lymphocytic leukemia) Acute Acute kidney injury superimposed on chronic kidney disease Acute N17.9, N18.9 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 Hypertension Chronic I10 MCI (mild cognitive impairment) Acute G31.84 Elevated glucose Acute R73.09 Anosmia Chronic R43.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 Medical History Medical History Incisional hernia Cerebrovascular disease Leukoencephalopathy CKD (chronic kidney disease) CVA (cerebral vascular accident) Transient global amnesia Varicocele right Sexual function problem Incisional hernia of anterior abdominal wall without obstruction or gangrene (02/21/17) Essential hypertension (01/09/18) Depressive disorder Allergic rhinitis (06/02/15) Non-Hodgkin lymphoma Essential hypertension Surgical History Surgical History S/P autologous bone marrow transplantation History of stem cell transplant Ulnar Nerve Transposition Laparotomy After perforation from ERCP EGD - MAC (06/05/18) Tobacco Smoking/Tobacco Use Status: Former Tobacco Use Passive smoking exposure: No Second hand exposure: Yes Alcohol Alcohol Intake: former Substance Use Substance use: Never Substance use type: does not use Vital Signs and Lab Results Vital Signs Most Recent Vital Signs in EMR: Most Recent Vital Signs Temp Pulse Resp BP Pulse Ox 36.2 C L 120 H 18 128/76 98 10/10/24 12:20 10/10/24 12:20 10/10/24 12:20 10/10/24 12:20 10/10/24 12:20 Lab Results Blood Type / Crossmatch: No Data to Display Complete Blood Count: No Data to Display Complete Metabolic Panel: No Data to Display Liver Function Panel: No Data to Display Coagulation Panel: No Data to Display Cardiac Panel: No Data to Display Arterial Blood Gas: No Data to Display Venous Blood Gas: No Data to Display Pancreas Panel: No Data to Display Thyroid Panel: No Data to Display Infectious Disease: No Data to Display Blood Cultures: No Data to Display Toxicology Panel: No Data to Display Imaging and Studies Imaging and Studies Study information below may be from another EMR and interpreted by another provider. Please see original notes in EMR for more complete details. EKG Summary: 03/16/23: Exam: Resting ECG Reason for Exam: afib Patient Location: O HR:91 bpm ECG Measurements Heart Rate 91 [place] TX [id number] P [id number] QRSd 89 QRS -10 QT 365 T-28 QTc 450 Conclusion Atrial fibrillation...V-rate 65-122, irreg A-activity Low voltage, precordial leads...precordial leads <1.0mV Nonspecific T abnormalities, anterior leads...T <-0.10mV, V2-V4 Echocardiogram Summary: 09/17/24: Conclusion Normal left ventricular wall thickness and chamber size. Ejection fraction is 40 to 45%. There is global hypokinesis. Patient is in atrial fibrillation with [id number] variation which confounds assessment Mildly enlarged right ventricle Both atria are moderately dilated Aortic valve is sclerotic and trileaflet with trace regurgitation Mild to moderate mitral regurgitation There is a small pericardial effusion Carotid Artery Summary:: 02/26/20: Exam(s) a US:US carotid EXAM: US CAROTID CLINICAL HISTORY: tia TECHNIQUE: Ultrasound performed using standard protocol. COMPARISON: US US ECHOCARDIOGRAM from 02/26/2020 FINDINGS: Duplex evaluation of the carotid circulation was performed. There is minimal visible atheromatous plaque in the carotid bulbs bilaterally. Flow velocities in the common, internal, and external carotid arteries are within normal limits bilaterally. There is bilateral antegrade vertebral flow. IMPRESSION: No evidence of a hemodynamically significant carotid stenosis. Anesthesia Assessment and Plan Anesthesia History Personal History: No History of Anesthesia Complications Family History: No Family History of Anesthesia Complications Exercise Tolerance Exercise Tolerance: Metabolic Equivalents>4 Pertinent Negatives Pertinent Negatives: No Symptoms of GERD and No Major Pulmonary Symptoms or Complaints Cardiac & Pulmonary Exam Cardiac Exam: Normal S1/S2 Heart Sounds (Irregular) Pulmonary Exam: Clear Bilateral Breath Sounds Implantable Cardiac Device Does patient have a Pacemaker or an ICD?: No Airway Exam Known Difficult Airway: No Mallampati Class: 1 Mouth Opening: Normal (> 3cm) Thyromental Distance: Greater than 3 cm Neck Range of Motion: Full ROM Neck Circumference: Normal Teeth Condition: Normal Dentition ASA Classification ASA Score: ASA 3 Emergency Case?: No NPO Status NPO Status: NPO Clears >2 hours, Solids >8 hours Anesthesia Plan Resuscitation Status: Full Code Anesthesia Technique: General Anesthesia Airway Planned: Natural Airway (Converting to OETT if necessary) Monitors Used: Standard Monitors and SedLine
[2024-10-10] MEDS: ceFAZolin 3,000 MG in Normal Saline 100 ML 200 MG IV (14:16)
--- NOTE | 2024-10-10 14:45 | DI.RAD_ITS ---
Exam(s) XR ANKLE LT 2V EXAM: XR ANKLE LT 2V CLINICAL HISTORY: Fracture of left ankle. TECHNIQUE: 2D and realtime digital imaging was performed. COMPARISON: CR XR ANKLE LT COMPLETE from 09/30/2024 FINDINGS: Hard copy images again show fixation plate along the distal fibula as well as a distal fibular fract ure. Please see procedure note for details. Fluoro time: 3.6seconds RADIATION DOSE DELIVERED: logan Eng=0.16 mGy
[2024-10-10] MEDS: Bupivacaine 0.25% Pres-Free 30 ML VIAL (15:00)
[2024-10-10] MEDS: fentaNYL 100 MCG/2 ML VIAL IVP ×2 (15:55→16:04)
--- NOTE | 2024-10-10 16:21 | W.PM.OP ---
Operative Note Operative Note PRE-OP DIAGNOSIS: Surgical Wound Dehiscence - Left Ankle POST-OP DIAGNOSIS: same PROCEDURE: Irrigation and Debridement of Left Ankle Surgical Wound Dehiscence Secondary Closure - Left Ankle Wound Wound VAC placement - Left Ankle SURGEON: Venkatesh Bansal ANESTHESIA TYPE: General:No Airway Refer to Anesthesia Record ESTIMATED BLOOD LOSS: 20 PATHOLOGY: none sent TOURNIQUET TIME: 0 COMPLICATIONS: None Indications: Riley is a 74-year-old male who suffered an unstable left ankle fracture which was fixed with a sideplate. Unfortunately, he had progressive wound dehiscence despite a host of methods of wound treatment in the office. Therefore, I recommend we proceed to the operating room for irrigation debridement of the wound with attempted secondary closure and wound VAC placement. I discussed risk to include bleeding, infection, pain, stiffness, wound dehiscence, need for secondary surgeries. Despite these risk, he elected to proceed. Findings: There is no sign of infection. There was exposed plate. The wound measured approximately 10 cm x 2 and half centimeters at its widest and approximately 5 to 10 mm deep. There is no undermining. Full-thickness flaps were elevated and secondary closure was performed with a incisional wound VAC. Procedure Description: Riley was greeted in the preoperative holding area. His identity was confirmed the correct site was. The consent was reviewed the patient and signed. History and physical was updated. He was brought back to the operating room and placed in the supine position on the operating room table. The left leg was elevated and a bump was placed underneath the left hip. Prophylactic antibiotics in the form of cefazolin were given. A timeout performed for safe surgery. The left leg was then prepped with Betadine and draped in a standard fashion. A x-ray was performed to check the alignment of the fracture which showed no signs of malpositioning. The hardware was intact. A stress view was also performed and showed no change in the fracture alignment or the location of the talus. I then performed a debridement of the wound. Remnant suture was removed. Any fibrinous or necrotic tissue was debrided sharply. I then irrigated the wound with 1-1/2 L normal saline. This was taken around the wound completely. I utilized a lap pad for the plate to debride it. I also used a small curette for the screw holes and the soft tissue around the ankle. There is bleeding tissue everywhere. I then irrigated the tissue with another 1 L of normal saline. I then created some full-thickness skin flaps anteriorly and posteriorly. This was done with a knife. The wound was once again inspected and showed no signs of necrotic tissue. There is no signs of purulence or infection. The remaining 500 cc normal saline was also irrigated through the wound once again. There is healthy granulation tissue throughout. The wound measured approximately 10 cm in length by approximately 2 and half centimeters in width at its widest spot. He had variable depth between 5 to 10 mm. There is no undermining. There is no tunneling. I then performed a secondary closure. This was done in a very slow methodical fashion utilizing 0 and 2-0 Prolene. I used a tensionless type suture to grab the skin away from the wound itself. This was worked from the edges and then moved over to the widest portion of the wound. Full-thickness bites were obtained. The skin away from the incision site was able to hold the sutures without any pulled out. This was performed until the wound was fully closed. There was no gapping of the skin edges. There was some tension to the skin but all skin was blanchable. I then placed an incisional wound VAC. The skin away from the suture site was covered with Tegaderm. The sponge was placed on top of the incision followed by the clear barrier. The sponge was applied to suction without leaks. The leg was cleaned completely and covered with Kerlex followed by an Surendra wrap in a compressive manner. Riley was awakened from anesthesia. There is no notable complications. We will once again submit paperwork for outpatient wound VAC. We do not have one currently and therefore we will keep him in the hospital for observation to check labs, administer IV antibiotics and strictly keep the leg elevated. He will remain partial weightbearing on the left leg with bathroom privileges although he should keep the leg elevated all times. Eliquis to resume tomorrow morning. Date of Procedure: 10/10/24
--- NOTE | 2024-10-10 16:23 | W.ANESPOSTOP ---
Postoperative Evaluation Date, Time and Location Date Performed: 10/10/24 Time Performed: 16:10 Patient Location: Day Surgery Unit Vital Signs Most Recent Imported Vital Signs: Most Recent Vital Signs Temp Pulse Resp BP Pulse Ox 36.2 C L 86 14 125/86 95 10/10/24 16:17 10/10/24 16:16 10/10/24 16:16 10/10/24 16:16 10/10/24 16:16 Pain Score Most Recent Pain Score: Most Recent Pain Score Pain Level 4 10/10/24 16:17 Assessment Mental Status: Awake (Alert & Oriented to Patient Baseline) Airway and Respiratory Function: Patent airway with normal (patient baseline) respiratory exam Cardiovascular Function: Hemodynamically Stable Hydration Status: Adequately Hydrated Nausea & Vomiting: No Nausea or Vomiting Pain: Pain is tolerable per patient Peripheral Nerve Block: Patient did not receive a nerve block
--- NOTE | 2024-10-10 17:49 | W.PC.ACHO ---
Registration Status: Primary Language: Preferred Language: Medical / Surgical History (Last Reviewed 10/10/24 @ 12:21 by Lisa Juarez RN) Incisional hernia Cerebrovascular disease Leukoencephalopathy CKD (chronic kidney disease) CVA (cerebral vascular accident) Transient global amnesia Varicocele Sexual function problem Incisional hernia of anterior abdominal wall without obstruction or gangrene (02/21/17) Essential hypertension (01/09/18) Depressive disorder Allergic rhinitis (06/02/15) Non-Hodgkin lymphoma Essential hypertension (Last Reviewed 10/10/24 @ 12:21 by Lisa Juarez RN) S/P autologous bone marrow transplantation History of stem cell transplant Ulnar Nerve Transposition Laparotomy EGD - MAC (06/05/18) Most Recent Vital Signs Temperature 36.2 C L 10/10/24 17:15 Temperature Source Temporal Artery Scan 10/10/24 17:15 Pulse 108 H 10/10/24 17:15 Pulse Rhythm Regular 10/10/24 16:44 Pulse 109 H 10/10/24 16:16 Respiratory Rate 18 10/10/24 17:15 Respiratory Effort Normal, Non-Labored 10/10/24 16:44 Respiratory Depth Normal 10/10/24 16:44 Respiratory Pattern Normal 10/10/24 16:44 Blood Pressure 127/75 10/10/24 17:15 Blood Pressure Mean 95 10/10/24 16:16 Pulse Oximetry 96 10/10/24 17:15 Respiratory End-tidal CO2 33 10/10/24 16:17 Oxygen Delivery Method Room Air 10/10/24 17:15 Oxygen Flow Rate 0 10/10/24 17:15 Pain Level 4 10/10/24 16:44 Allergies No Known Allergies Allergy (Verified 10/10/24 12:29) Active Medications Generic Name Dose Route Start Last Admin Trade Name Freq PRN Reason Stop Dose Admin Cefazolin Sodium 3,000 mg/ 100 mls @ 200 mls/hr 10/10/24 06:00 10/10/24 14:46 Sodium Chloride IV 10/10/24 23:59 Infused PREOP ARANZA Infusion IV IV Catheter Type [Left Wrist] Peripheral IV IV Catheter Gauge [Left Wrist] 20 Diet Orders Category Date Time Status Regular/Normal [DIET] Nutrition 10/10/24 Dinner Active Intake and Output - 24 Hour Total 10/07/24 14:08 thru 10/10/24 16:44 Intake Total 700 Balance 700 Weight 106.594 kg Intake: IV 700 Other: Urine Appearance Clear Emesis Description None Falls Risk Assessment History of Falls Previous History 10/10/24 16:44 Contributing Factors No Factors 10/10/24 16:44 Ambulatory Aids Uses ambulatory device 10/10/24 16:44 Tubes/Lines W/no contributing factors 10/10/24 16:44 Gait Evaluation W/no contributing factors 10/10/24 16:44 Cognition Cognitive impairment 10/10/24 16:44 Fall Total Score 65 10/10/24 16:44 Level of Risk High Risk 10/10/24 16:44 v v v v v v v v v Sending and/or Receiving Nurses: Please use comment section below to note any information pertinent to the patient hand-off not included above. Information / Comments: Pt arrived on unit at 1623. I&D left ankle, wound vac placement. Report received from: Sudha Smith RN (PACU)
[2024-10-10] MEDS: traMADol 50 MG TAB PO (18:45)
[2024-10-10] MEDS: Protein Nutritional Supplement 16 GM 1 OUNCE PACKET PO (19:49)
[2024-10-10] MEDS: Acyclovir 400 MG TAB PO (19:50)
[2024-10-10] MEDS: Melatonin 3 MG TAB PO (19:50)
[2024-10-10] MEDS: Acetaminophen 500 MG TAB 1000 MG PO (19:50)
[2024-10-10] MEDS: Metoprolol 50 MG TAB PO (19:50)
[2024-10-10] MEDS: ceFAZolin 1 GM/50 ML BAG IVPB (19:50)
[2024-10-10] MEDS: Normal Saline Flush 10 ML SYR IV ×2 (19:51→21:10)
[2024-10-10] MEDS: HYDROmorphone 2 MG/ML SYR 0.5 MG IVP (21:10)
--- NOTE | 2024-10-10 23:04 | NUR.NOTE ---
ENIO notified this signwriter that patient was displaying signs of confusion and anxiety related to trying to find his boxers. She reassured him that they were in his bag and that he did not need them now. this signwriter went to observe pt and assess confusion but pt was sleeping at that time. will continue to monitor.
--- NOTE | 2024-10-10 23:39 | NUR.NOTE ---
this staff writer performed bedside rounding on pt. He was noted to be increasingly confused, asking where he was, stating that he needed to get home because his doesnt know where he is, attempting to get out of bed, unaware of the time of day or that it is dark out indicating nighttime. redirected and reassured pt that his is aware of where he is, that he was at [facility] and why he was here. after prompting he seemed to understand his situation but then immediately was confused and asking the same questions again. pt has hx of mild cognitive impairment and recently received IVP of 0.5mg dilaudid. charge nurse notified. will review chart for previous note from neurology about the cognitive impairment.
[2024-10-11] MEDS: Ibuprofen 600 MG TAB PO (01:58)
[2024-10-11] MEDS: ceFAZolin 1 GM/50 ML BAG IVPB ×2 (03:57→12:30)
--- NOTE | 2024-10-11 05:38 | NUR.NOTE ---
Addendum entered by Myrtle Torres LPN 10/11/24 05:52: spoke to provider. order for haldol placed, D/C diaudid Original Note: patient has been increasingly confused this shift with progressing agitation. Patient has attempted to get out of bed multiple time while trying to remove the tubing of the wound vac from his leg. following message sent to provider. awaiting reply at this time. Good morning Dr. Bansal, my patient in rm [address], , has had increased confusion throughout the night. he is now becoming agitated with the confusion. He is continually trying to get out of bed and has been found twice with his feet on the floor attempting to stand and trying to rip off the wound vac. Im wondering if there is anything we can do to help him calm down. we have tried to redirect him many times this shift with little effect. he will seem to understand where he is and what is happening but then immediately forgets and gets anxious and restless. he has not slept at all really.
[2024-10-11] MEDS: Haloperidol 1 MG TAB 0.5 MG PO (06:11)
[2024-10-11 06:53] LABS: HCT 37.3 % (40.0-50.0); MCH 32.2 pg (27.0-33.0); MCHC 32.2 % (32.0-36.0); MCV 100 fL (80-95); MPV 10.2 fL (8.0-11.0); Platelet Count 220 10^3/uL (130-400); RBC 3.73 10^6/uL (4.36-5.78); RDW 14.5 % (11.8-14.1); RDW-SD 52.6 fL; WBC 10.57 10^3/uL (4.4-10.8)
[2024-10-11 07:16] LABS: ALT 30 U/L (16-63); AST 26 U/L (15-37); Albumin 3.1 g/dL (3.4-5.0); Alkaline Phosphatase 187 U/L (46-116); Anion Gap 13.7 mmol/L (3-11); BUN 38 mg/dL (7-18); Bilirubin, Total 0.57 mg/dL (0.2-1.0); CO2 24.3 mmol/L (21.0-32.0); Calcium 9.6 mg/dL (8.5-10.1); Chloride 109 mmol/L (98-107); Estimated GFR 34.81 (mL/min/1.73m2); Glucose 156 mg/dL (74-106); Potassium 4.4 mmol/L (3.5-5.1); Sodium 147 mmol/L (136-145)
[2024-10-11 07:26] VITALS: BP 121/95; PULSE 129; RESP 15; TEMP 36.9; O2SAT 97
--- NOTE | 2024-10-11 08:00 | RT.EKG_ITS ---
APPROVED REPORT Exam: Resting ECG Reason for Exam: persistent tachycardia Patient Location: I HR:135 bpm ECG Measurements Heart Rate 135 AXIS LA [id number] P [id number] QRSd 61 QRS 25 QT 349 T -17 QTc 524 Conclusion Atrial fibrillation...V-rate 103-172, irreg A-activity Low voltage, extremity and precordial leads...extremity<0.5mV, precordial<1.0mV Prolonged QT interval...QTc >500mS
[2024-10-11] MEDS: Protein Nutritional Supplement 16 GM 1 OUNCE PACKET PO (08:15)
[2024-10-11] MEDS: Apixaban 5 MG TAB PO (08:16)
[2024-10-11] MEDS: Acetaminophen 500 MG TAB 1000 MG PO ×2 (08:16→14:20)
[2024-10-11] MEDS: Metoprolol 50 MG TAB PO (08:16)
[2024-10-11] MEDS: Normal Saline Flush 10 ML SYR IVP ×2 (08:16→12:30)
[2024-10-11] MEDS: Famotidine 20 MG TAB PO (08:16)
[2024-10-11] MEDS: Torsemide 10 MG TAB PO (08:16)
[2024-10-11] MEDS: Acyclovir 400 MG TAB PO (08:16)
[2024-10-11] MEDS: Losartan 50 MG TAB PO (08:16)
--- NOTE | 2024-10-11 09:32 | INITIAL_ITS ---
Date of service: 10/11/24 Time of Service: 09:32 Care Management Initial Assmt Initial Assessment Reason for Hospitalization: left ankle wound dehiscence Functional Status/Living Situation Patient Presentation: Riley was sitting up in bed when CM met with him. He was pleasant in interaction and engaged well with CM. Riley had surgery earlier this month on his left ankle and developed complications requiring surgery again yesterday. Riley shared that he anticipates being able to discharge home later today or tomorrow; he is waiting for a wound vac to be delivered. Riley is and lives in [place] with his Naomi. 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 Riley is independent at baseline and does not receive any community services. 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[place]) Instrumental Activities of Daily Living (ADLs): Independent Medications Medication Management: No Issues/Barriers identified Physical Functioning/Mobility Assistive Device: needs walker and a cane for ambulation since he broke his ankle Advance Directives Advance Directives: Do you have an Advance Directive: N 07/06/22 16:03 AD On File at [facility]: N 07/06/22 16:03 Date Asked 10/07/24 10/07/24 17:17 AD Date Reviewed COLST On File at [facility] COLST Date Scanned Code Status Resuscitation Status Full Code Insurance Coverage/Financial Issues Insurance: / Medicare Advantage Care Team Visit Care Team Role Provider Type Geovanni Luna NP Primary Care Provider NURSE PRACTITIONER Venkatesh Bansal MD Admit Provider [facility] STAFF PHYSICIAN Attending Provider Discharge Potential Discharge Needs: Surgical F/U Appt Anticipated Barriers to Discharge: None Identified Patient/Family Education Needs: Review discharge instructions, discuss Ask Me Three Transportation: Private vehicle Plan: Anticipate Riley will be discharged home with no new services when medically cleared. He will follow up with his PCP and plan of care and transport with family. CM will follow and continue to assess for discharge needs. 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 (Acute) Dealt with by [facility] Hypertension (Chronic) MCI (mild cognitive impairment) (Acute) Elevated glucose (Acute) Anosmia (Chronic) Since chemotherapy 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) Status post stem cell transplant 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) Medical History Incisional hernia Cerebrovascular disease Leukoencephalopathy CKD (chronic kidney disease) CVA (cerebral vascular accident) Transient global amnesia Varicocele right Sexual function problem Incisional hernia of anterior abdominal wall without obstruction or gangrene (02/21/17) Essential hypertension (01/09/18) Depressive disorder Allergic rhinitis (06/02/15) Non-Hodgkin lymphoma Essential hypertension Surgical History S/P autologous bone marrow transplantation History of stem cell transplant Ulnar Nerve Transposition Laparotomy After perforation from ERCP EGD - MAC (06/05/18) Family History Mother , 93 No problems noted. Father , 74 AML (acute myeloblastic leukemia) Sister No problems noted. Brother Hyperlipidemia Maternal Grandfather Stroke Paternal Grandfather , 55 Lymphoma Maternal Grandmother , 90 Essential hypertension Paternal Grandmother , 90 No problems noted. Brother No problems noted. Brother No problems noted. Son No problems noted. Son No problems noted. 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 Pets and animals: Yes Pets and animals: cat(s) Sexually active: No Do you think of yourself as: straight/heterosexual Current gender identity: male What is your relationship status?: How often do you talk on the phone with friends or family?: three or more times per week How often do you get together with friends or relatives?: once per week Do you belong to any clubs or organized social groups?: yes Panel score (0-1 are the most socially isolated patients): 3 What type of physical activity do you participate in: other Details: PT,Gardening Duration: 30-45 minutes/day Frequency: 3-4 times per week Erica/Yazidism: Pentecostal Special erica needs: No Seatbelt use: always Helmet use: Yes Helmet use: always Drive intox or ride w/intox semi driver: No Do you feel safe at home: Yes Do you feel safe in your relationship?: Yes Additional Social history: [facility] SDOH(Care Management) Screening Will the Patient Participate in the Screening?: Yes Do you worry about having a steady place to live?: no Problems where you live: no known problems In the past 12 months, have you had to go without electric, gas, oil or water in your home?: no Have you or anyone in your house had to go without enough food to eat?: no Has lack of transportation kept you from medical appointments or from doing things needed for daily living?: no Has anyone in your support network made you feel unsafe for any reason?: no
--- NOTE | 2024-10-11 14:37 | CHAPLAIN ---
Riley was resting in bed when I visited. He told me about his ankle surgery after falling on the snow and ice in a field near his house in [place] about a week ago. He mentioned that he thought he wasn't in the right room, and planned to ask the nurse to take him back to his room, but he's in the right room. I explained my role and offered support.
--- NOTE | 2024-10-11 15:13 | W.PM.DS.N ---
Date of service: 10/11/24 Time of Service: 15:14 DS: Diagnosis Discharge Diagnosis (1) Wound dehiscence, surgical: Status: Acute (2) Atrial fibrillation: Status: Chronic Discharge Plan Disposition Patient Disposition: Home W/Home Health Services Condition: Improving Discharge Details Reason For Visit: Left Ankle Surgical Wound Dehiscence Admit Date/Time: 10/10/24 16:16 Admit Provider: Venkatesh Bansal Attending Provider: Venkatesh Bansal Primary Care Provider: Geovanni Luna Hospital Course Hospital Course: Patient was admitted to the medical/surgical floor following the procedure. The surgery was tolerated well without any notable medical, surgical, or anesthetic complications. However, on the first night of admission Riley was fairly restless and agitated with some mild delirium, not particular oriented to place. 1 single dose of Haldol was utilized for his agitation which seemed to help out significantly and then he returned to his baseline during the day. He was voiding spontaneously. Vitals were stable. Pain was controlled on oral regimen. The wound VAC had minimal to no output and therefore, given insurance difficulties on obtaining an outpatient wound VAC, was transitioned to a stevie dressing. Home Meds and New Rx's Prescriptions: Continued melatonin 5 mg capsule 5 mg PO HS lorazepam 0.5 mg tablet 0.5 mg PO ONCE PRN Patient Comments: RX'd by [facility] Neu[facility]. -hb famotidine [Pepcid] 20 mg tablet 20 mg PO DAILY Patient Comments: per [facility] acyclovir 400 mg tablet 400 mg PO BID Patient Comments: per [facility] metoprolol tartrate 100 mg tablet 50 mg PO BID Qty: 180 3RF Eliquis 5 mg tablet 5 mg PO BID Qty: 180 3RF albuterol sulfate 90 mcg/actuation HFA aerosol inhaler 2 puff inhalation Q6H PRN (Reason: shortness of breath or wheezing) Qty: 8.5 1RF torsemide 10 mg tablet 10 mg PO DAILY Qty: 60 3RF losartan 50 mg tablet 50 mg PO DAILY Qty: 90 3RF ciprofloxacin HCl 750 mg tablet 750 mg PO BID Qty: 28 0RF acetaminophen 500 mg tablet 1,000 mg PO TID Qty: 90 3RF tramadol 50 mg tablet 50 mg PO Q4H PRNQty: 20 0RF ibuprofen 600 mg tablet 600 mg PO TID PRNQty: 90 3RF Discharge Instructions Additional Instructions: ACTIVITY: You may bear some weight on the left leg but always with support of crutches or a walker. You should minimize any time with the legs in a dependent position and minimize any walking. You should keep the leg elevated, ankle higher than knee higher than hip. You may move your ankle as tolerated. DRESSING: You have a STEVIE dressing over the wound. This will stay in place until changed by nursing or Dr. Bansal's staff. No daily dressing changes are required. FOLLOW-UP: We will arrange for weekly follow-up with Dr. Bansal's team. You also should get an appointment with your primary care practioner to discuss your ongoing tachycardia from atrial fibrillation. 1. Encounter Date and Reason I certify that Win Vega was seen by Venkatesh Bansal MD on 10/11/24 and that I had a [id number] encounter with this patient that meets the physician face to face encounter requirements. 2. Clinical Findings Supporting Skilled Need and Homebound Status I certify that home health services are medically necessary, include either intermittent senior care and/or physical/speech therapy, and that this patient is homebound in that absences from the home require considerable and taxing effort and are infrequent or of short duration, or are attributable to the need to receive medical care. [X] (a) Attached documentation from encounter provides clinical findings supporting skilled need and homebound status (including what assistance patient requires to leave the home). The encounter with the patient was in whole, or in part, for the following medical condition, which is the primary reason for home health care: Left Ankle Surgical Wound Dehiscence Custodial: Riley will benefit from senior care to assess his wound and make a dressing change. Riley had a wound dehiscence about the left ankle. The wound has been debrideded and closed albeit with some tension. He has a STEVIE wound vacuum system in place currently. This should be changed twice a week. Dr. Bansal's office will plan to make one of those changes most likely starting on Monday10/21/24. After the STEVIE is applied, place some padding over the lateral ankle and then a compressive HUMBERTO wrap. Physical Therapy: Speech Therapy: Homebound: Riley is unable to leave his home unassisted due to the wound and limitations from the ankle fracture. 3. Certification and Authentication I certify that I composed the above information based on my clinical judgement relating to this patient's medical condition and, if applicable, clinical findings communicated to me by the NPP or inpatient physician who performed the Home Health Referral. All further orders will be obtained through Dr. Bansal Referrals: Venkatesh Bansal MD [ [facility] STAFF PHYSICIAN] - Activity:: Elevate LLE Equipment/Supplies:: No Equipment Needed Diet:: As Tolerated Discharge Orders Discharge Orders: Discharge Order (Routine); Ordered 10/11/24 Ordered By: Venkatesh Bansal DS: Summary Time Spent with Patient providing and/or coordinating discharge services: Greater than 30 minutes Status at Discharge Functional status at discharge: uses cane/walker Overall status at discharge: patient is progressing back to baseline Mental Status: mental status grossly normal Speech and Movement: speech and movement normal Mood: congruent mood Affect: normal affect Quality:SDOH Health Related Social Needs: No Data to Display Exam Psych Mental Status: mental status grossly normal Speech and Movement: speech and movement normal Mood: congruent mood Affect: normal affect DS: Data Vitals/I&O Vitals and I&O: Vital Signs Temperature 36.9 C 10/11/24 07:26 Temperature Source Temporal Artery Scan 10/11/24 07:26 Pulse 129 H 10/11/24 07:26 Pulse Rhythm Regular 10/10/24 16:44 Pulse 109 H 10/10/24 16:16 Respiratory Rate 15 10/11/24 07:26 Respiratory Effort Normal, Non-Labored 10/10/24 16:44 Respiratory Depth Normal 10/10/24 16:44 Respiratory Pattern Normal 10/10/24 16:44 Blood Pressure 121/95 H 10/11/24 07:26 Blood Pressure Mean 95 10/10/24 16:16 Pulse Oximetry 97 10/11/24 07:26 Respiratory End-tidal CO2 33 10/10/24 16:17 Oxygen Delivery Method Room Air 10/11/24 07:26 Oxygen Flow Rate 0 12/27/24 07:26 Pain Level 0 10/11/24 07:39 Comment RN notified of vitals 10/11/24 07:26 Intake & Output 10/10/24 10/11/24 10/11/24 23:59 11:59 23:59 Intake Total 1760 / 1760 60 / 60 Output Total 300 / 300 275 / 450 175 / 450 Balance 1460 / 1460 -215 / -390 -175 / -390 Weight 106.594 kg Intake: IV 1160 / 1160 60 / 60 Oral 600 / 600 Output: Output, Wound Vac (mls) 0 / 0 Urine 300 / 300 275 / 450 175 / 450 Other: Urine Color Yellow Straw Straw Straw Urine Appearance Clear Clear Clear Urine Odor Strong Emesis Description None Data Completed and Pending Labs on day of discharge: Labs from last 24 hours 10/11/24 05:55 WBC 10.57 RBC 3.73 L Hgb 12.0 L Hct 37.3 L MCV 100 H MCH 32.2 MCHC 32.2 RDW 14.5 H Plt Count 220 MPV 10.2 Sodium 147 H Potassium 4.4 Chloride 109 H Carbon Dioxide 24.3 Anion Gap 13.7 H BUN 38 H Creatinine 2.0 H Est GFR (CKD-EPI 2020) 34.81 Glucose 156 H Calcium 9.6 Total Bilirubin 0.57 AST 26 ALT 30 Alkaline Phosphatase 187 H Total Protein 6.0 L Albumin 3.1 L PFSH All Active Problems Wound dehiscence, surgical (Acute) Chronic kidney disease, stage 3 (Acute) Fatigue (Acute) Atrial fibrillation (Chronic) Acute systolic CHF (congestive heart failure) (Acute) Bronchospasm (Acute) Cardiomyopathy (Acute) Atrial fibrillation with rapid ventricular response (Acute) Deep vein thrombosis (DVT) of left lower extremity (Acute) CLL (chronic lymphocytic leukemia) (Acute) Acute kidney injury superimposed on chronic kidney disease (Acute) 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 (Acute) Dealt with by [facility] Hypertension (Chronic) MCI (mild cognitive impairment) (Acute) Elevated glucose (Acute) Anosmia (Chronic) Since chemotherapy 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) Status post stem cell transplant 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) Medical History Incisional hernia Cerebrovascular disease Leukoencephalopathy CKD (chronic kidney disease) CVA (cerebral vascular accident) Transient global amnesia Varicocele right Sexual function problem Incisional hernia of anterior abdominal wall without obstruction or gangrene (02/21/17) Essential hypertension (01/09/18) Depressive disorder Allergic rhinitis (06/02/15) Non-Hodgkin lymphoma Essential hypertension Surgical History S/P autologous bone marrow transplantation History of stem cell transplant Ulnar Nerve Transposition Laparotomy After perforation from ERCP EGD - MAC (06/05/18) Family History Mother , 93 No problems noted. Father , 74 AML (acute myeloblastic leukemia) Sister No problems noted. Brother Hyperlipidemia Maternal Grandfather Stroke Paternal Grandfather , 55 Lymphoma Maternal Grandmother , 90 Essential hypertension Paternal Grandmother , 90 No problems noted. Brother No problems noted. Brother No problems noted. Son No problems noted. Son No problems noted. 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 Pets and animals: Yes Pets and animals: cat(s) Sexually active: No Do you think of yourself as: straight/heterosexual Current gender identity: male What is your relationship status?: How often do you talk on the phone with friends or family?: three or more times per week How often do you get together with friends or relatives?: once per week Do you belong to any clubs or organized social groups?: yes Panel score (0-1 are the most socially isolated patients): 3 What type of physical activity do you participate in: other Details: PT,Gardening Duration: 30-45 minutes/day Frequency: 3-4 times per week Erica/Evangelical: Mu-Ism Special erica needs: No Seatbelt use: always Helmet use: Yes Helmet use: always Drive intox or ride w/intox flatbed company driver: No Do you feel safe at home: Yes Do you feel safe in your relationship?: Yes Additional [facility] history[facility] Time Spent with Patient Time Spent with Patient: 45-69 minutes Time was spent: preparing to see the patient(eg.review tests), obtaining and/or reviewing separately otained hiistory, ordering medications,tests, procedures, referring, communicating with other health multi care technician, counseling the patient and care coordination
--- NOTE | 2024-10-11 15:44 | PGE_ITS ---
Date of Service Date of service: 10/11/24 Time of Service: 14:55 Assessment and Plan Assessment and plan (1) Wound dehiscence, surgical: Status: Acute Assessment and plan: Riley is postop day #1 status post irrigation and debridement and complex secondary closure of a left ankle wound, surgical dehiscence. There are no overt signs of infection. I will maintain him on prophylactic antibiotics. Given the difficulties with obtaining outpatient wound VAC I will transition him to a brooks dressing given that he has no significant output in the wound VAC canister today. I want this to be changed at least twice per week. He may be able to discharge to home today with the brooks dressing and I will arrange for home health services for dressing changes. (2) Atrial fibrillation: Status: Chronic Assessment and plan: Riley has persistent tachycardia with known atrial fibrillation. At this point, I do think that this should be looked at more closely. He has been persistently tachycardic. He is on 50 mg twice daily of metoprolol dosing and this could be increased although he has a history of congestive heart failure. Not sure if a second agent needs to be considered or the consideration of cardioversion. Either way, this should be discussed with his primary care team or team primary care physician. I encouraged him to have an appointment set up soon as possible. Subjective Subjective Interval history since last seen: Riley had significant agitation and disorientation last night. Multiple attempts at reorientation were performed by the nursing but he did become quite agitated towards the skilled nursing case manager hours. He received a single dose of 0.5 mg of Haldol which helped out. He does not recall much of the details of last night but seems to state that he is feeling well this morning. He reports some achy pain but overall well-tolerated. He has been able to void without difficulty. He denies fevers or chills. He denies any chest pain or shortness of breath. He has remained tachycardic which has been his baseline as of late. Attempts at obtaining an outpatient wound VAC have failed. I still have not received any confirmation from his insurance company is a still are evaluating medical need. Exam Narrative Exam Narrative: Sitting up in the hospital bed. No acute distress. Alert and orient x 3. The left leg is elevated on pillows. Incisional wound VAC is in place with no output in the canister. No signs of infection. At the bedside today I removed his previous dressing and inspected the wound which showed no signs of infection no signs of dehiscence. A brooks vacuum assisted dressing was then applied. Objective Last Vital Signs Temp 36.9 C 10/11/24 07:26 Pulse 129 H 10/11/24 07:26 Resp 15 10/11/24 07:26 BP 121/95 H 10/11/24 07:26 Pulse Ox 97 10/11/24 07:26 Laboratory Results - last 24 hr 10/11/24 05:55 WBC 10.57 RBC 3.73 L Hgb 12.0 L Hct 37.3 L MCV 100 H MCH 32.2 MCHC 32.2 RDW 14.5 H Plt Count 220 MPV 10.2 Sodium 147 H Potassium 4.4 Chloride 109 H Carbon Dioxide 24.3 Anion Gap 13.7 H BUN 38 H Creatinine 2.0 H Est GFR (CKD-EPI 2020) 34.81 Glucose 156 H Calcium 9.6 Total Bilirubin 0.57 AST 26 ALT 30 Alkaline Phosphatase 187 H Total Protein 6.0 L Albumin 3.1 L Time Spent with Patient Time Spent with Patient: 25-34 minutes Time was spent: preparing to see the patient(eg.review tests), indepentently interpreting results, counseling the patient and care coordination
--- NOTE | 2024-10-11 15:55 | PDOC.CMDIS ---
Date of service: 10/11/24 Time of Service: 15:55 LACE Index Scoring Tool Questions: Length of Stay (in days): 1 Was the patient admitted via the E.D.?: No Comorbidities: Cerebrovascular Disease, Congestive Heart Failure, Any Tumor and Liver or Renal Disease E.D. Visits: 1 Answers: Total Score: 7 Risk of Readmission: Low Risk Care Management Discharge Plan Reason for Hospitalization: wound dehiscence Discharge Plan: Riley will be discharged home with home health services for nursing for wound care. He will follow up with his PCP and plan of care and transport with family. Patient/Family Education Needs: Review discharge instructions, limitations, follow up plan and discuss Ask Me Three Services Needed at Discharge: Home Health Care Services SDOH Health Related Social Needs: No Data to Display
== END 2024-10-11 16:19 | disposition home health service (06) ==
LOC: MS 16:27
PROVIDERS: Admitting Provider Student in an Organized Health Care Education/Training Program; PCP Nurse Practitioner Family; Visit Provider Student in an Organized Health Care Education/Training Program
PROC: (CPT 13160; principal; 2024-10-10 14:30)
DX: T81.31XA Disruption of external operation (surgical) wound, not elsewhere classified, initial encounter (principal); I48.20 Chronic atrial fibrillation, unspecified; N18.30 Chronic kidney disease, stage 3 unspecified; I42.9 Cardiomyopathy, unspecified; C85.89 Other specified types of non-Hodgkin lymphoma, extranodal and solid organ sites; I13.0 Hypertensive heart and chronic kidney disease with heart failure and stage 1 through stage 4 chronic kidney disease, or unspecified chronic kidney disease; C91.91 Lymphoid leukemia, unspecified, in remission; F05 Delirium due to known physiological condition; I50.20 Unspecified systolic (congestive) heart failure; Z86.718 Personal history of other venous thrombosis and embolism; Z94.84 Stem cells transplant status; G31.84 Mild cognitive impairment of uncertain or unknown etiology; Y79.3 Surgical instruments, materials and orthopedic devices (including sutures) associated with adverse incidents; Z79.01 Long term (current) use of anticoagulants; Z79.899 Other long term (current) drug therapy
CPT/HCPCS: 13160; 36415; 76000; 80053; 85027; 96365; 96366; 96375; 73600; 93005; 93010; G0378; J0665; J0690; J1100; J1171; J2371; J2405; J2704; J3010

== ENCOUNTER → 2024-10-17 09:33 | Outpatient (BNVA) | payer MEDICARE, SELFPAY | PROVIDERS: PCP Nurse Practitioner Family; Referring Provider Nurse Practitioner Family; Visit Provider Student in an Organized Health Care Education/Training Program | DX: S82.892D Other fracture of left lower leg, subsequent encounter for closed fracture with routine healing (principal); T81.31XD Disruption of external operation (surgical) wound, not elsewhere classified, subsequent encounter; X58.XXXD Exposure to other specified factors, subsequent encounter | CPT/HCPCS: 99024 ==

== ENCOUNTER → 2024-10-24 14:50 | Outpatient (BNVA) | payer MEDICARE, SELFPAY | PROVIDERS: PCP Nurse Practitioner Family; Referring Provider Nurse Practitioner Family | DX: T81.31XD Disruption of external operation (surgical) wound, not elsewhere classified, subsequent encounter | CPT/HCPCS: 99024 ==

== ENCOUNTER → 2024-10-28 13:17 | Outpatient (BNVA) | payer MEDICARE, SELFPAY | PROVIDERS: PCP Nurse Practitioner Family; Visit Provider Registered Nurse | DX: I48.91 Unspecified atrial fibrillation (principal); I50.21 Acute systolic (congestive) heart failure | CPT/HCPCS: 99214 ==

== ENCOUNTER 2024-10-31 15:36 | Outpatient (CLI) | payer MEDICARE, SELFPAY ==
--- NOTE | 2024-10-31 15:15 | DI.RAD_ITS ---
Exam(s) XR ANKLE LT 2V EXAM: XR ANKLE LT 2V CLINICAL HISTORY: eval L ankle fracture TECHNIQUE: 2D digital imaging was performed of the left ankle. Two images were obtained. AP and la teral views were obtained. COMPARISON: CR XR ANKLE LT COMPLETE from 09/30/2024 FINDINGS: BONES: There is again seen a sideplate and screws transfixing the distal left fibular fracture. Ther e has been no change in alignment of the orthopedic hardware or fracture components. There is again seen an osseous fragment at the tip of the medial malleolus which is stable. No bony destructive les ion is seen. There is a small plantar calcaneal spur. JOINTS:The ankle mortise is normally aligned. SOFT TISSUE: Normal. IMPRESSION: Stable postoperative and traumatic changes in the left ankle. DATA REPOSITORY: RADIATION DOSE DELIVERED:
== END 2024-10-31 15:37 | disposition home or self-care (01) ==
LOC: DIORS 15:37
PROVIDERS: PCP Nurse Practitioner Family; Referring Provider Nurse Practitioner Family; Visit Provider Student in an Organized Health Care Education/Training Program
DX: S82.892D Other fracture of left lower leg, subsequent encounter for closed fracture with routine healing; T81.31XD Disruption of external operation (surgical) wound, not elsewhere classified, subsequent encounter; X58.XXXD Exposure to other specified factors, subsequent encounter
CPT/HCPCS: 99024; 73600

== ENCOUNTER → 2024-11-07 13:06 | Outpatient (BNVA) | payer MEDICARE, SELFPAY | PROVIDERS: PCP Nurse Practitioner Family; Referring Provider Nurse Practitioner Family; Visit Provider Student in an Organized Health Care Education/Training Program | DX: S82.892D Other fracture of left lower leg, subsequent encounter for closed fracture with routine healing (principal); T81.31XD Disruption of external operation (surgical) wound, not elsewhere classified, subsequent encounter | CPT/HCPCS: 29405; 97605 ==

== ENCOUNTER → 2024-11-14 12:45 | Outpatient (BNVA) | payer MEDICARE, SELFPAY | PROVIDERS: PCP Nurse Practitioner Family; Referring Provider Nurse Practitioner Family; Visit Provider Student in an Organized Health Care Education/Training Program | DX: S82.892G Other fracture of left lower leg, subsequent encounter for closed fracture with delayed healing (principal); T81.31XD Disruption of external operation (surgical) wound, not elsewhere classified, subsequent encounter; X58.XXXD Exposure to other specified factors, subsequent encounter | CPT/HCPCS: 99214 ==

== ENCOUNTER → 2024-11-15 13:41 | Outpatient (BNVA) | payer MEDICARE, SELFPAY | PROVIDERS: PCP Nurse Practitioner Family; Referring Provider Nurse Practitioner Family; Visit Provider Physical Therapy Assistant | DX: S82.892G Other fracture of left lower leg, subsequent encounter for closed fracture with delayed healing (principal); T81.31XD Disruption of external operation (surgical) wound, not elsewhere classified, subsequent encounter; X58.XXXD Exposure to other specified factors, subsequent encounter; I50.21 Acute systolic (congestive) heart failure | CPT/HCPCS: 97597 ==

== ENCOUNTER → 2024-11-19 07:49 | Outpatient (BNVA) | payer MEDICARE, SELFPAY | PROVIDERS: PCP Nurse Practitioner Family; Referring Provider Nurse Practitioner Family; Visit Provider Physical Therapy Assistant | DX: S82.892G Other fracture of left lower leg, subsequent encounter for closed fracture with delayed healing (principal); T81.31XD Disruption of external operation (surgical) wound, not elsewhere classified, subsequent encounter; X58.XXXD Exposure to other specified factors, subsequent encounter | CPT/HCPCS: 99215 ==

== ENCOUNTER → 2024-11-22 09:42 | Outpatient (BNVA) | payer MEDICARE, SELFPAY | PROVIDERS: PCP Nurse Practitioner Family; Referring Provider Nurse Practitioner Family; Visit Provider Physical Therapy Assistant | DX: S82.892G Other fracture of left lower leg, subsequent encounter for closed fracture with delayed healing (principal); T81.31XD Disruption of external operation (surgical) wound, not elsewhere classified, subsequent encounter; X58.XXXD Exposure to other specified factors, subsequent encounter | CPT/HCPCS: 97597 ==

== ENCOUNTER → 2024-11-26 12:47 | Outpatient (BNVA) | payer MEDICARE, SELFPAY | PROVIDERS: PCP Nurse Practitioner Family; Referring Provider Nurse Practitioner Family; Visit Provider Physical Therapy Assistant | DX: S82.892G Other fracture of left lower leg, subsequent encounter for closed fracture with delayed healing (principal); T81.31XD Disruption of external operation (surgical) wound, not elsewhere classified, subsequent encounter; X58.XXXD Exposure to other specified factors, subsequent encounter | CPT/HCPCS: 97597 ==

== ENCOUNTER → 2024-11-29 10:43 | Outpatient (BNVA) | payer MEDICARE, SELFPAY | PROVIDERS: PCP Nurse Practitioner Family; Referring Provider Nurse Practitioner Family; Visit Provider Physical Therapy Assistant | DX: S82.892G Other fracture of left lower leg, subsequent encounter for closed fracture with delayed healing (principal); T81.31XD Disruption of external operation (surgical) wound, not elsewhere classified, subsequent encounter; X58.XXXD Exposure to other specified factors, subsequent encounter | CPT/HCPCS: 97597 ==

== ENCOUNTER → 2024-12-03 12:43 | Outpatient (BNVA) | payer MEDICARE, SELFPAY | PROVIDERS: PCP Nurse Practitioner Family; Referring Provider Nurse Practitioner Family; Visit Provider Surgery | DX: S82.892G Other fracture of left lower leg, subsequent encounter for closed fracture with delayed healing (principal); T81.31XD Disruption of external operation (surgical) wound, not elsewhere classified, subsequent encounter; X58.XXXD Exposure to other specified factors, subsequent encounter | CPT/HCPCS: 97597 ==

== ENCOUNTER → 2024-12-06 10:39 | Outpatient (BNVA) | payer MEDICARE, SELFPAY | PROVIDERS: PCP Nurse Practitioner Family; Referring Provider Nurse Practitioner Family; Visit Provider Physical Therapy Assistant | DX: S82.892G Other fracture of left lower leg, subsequent encounter for closed fracture with delayed healing (principal); T81.31XD Disruption of external operation (surgical) wound, not elsewhere classified, subsequent encounter; X58.XXXD Exposure to other specified factors, subsequent encounter | CPT/HCPCS: 97597 ==

== ENCOUNTER → 2024-12-10 10:44 | Outpatient (BNVA) | payer MEDICARE, SELFPAY | PROVIDERS: PCP Nurse Practitioner Family; Referring Provider Nurse Practitioner Family; Visit Provider Physical Therapy Assistant | DX: S82.892G Other fracture of left lower leg, subsequent encounter for closed fracture with delayed healing (principal); T81.31XD Disruption of external operation (surgical) wound, not elsewhere classified, subsequent encounter; X58.XXXD Exposure to other specified factors, subsequent encounter | CPT/HCPCS: 99213 ==

== ENCOUNTER → 2024-12-13 10:45 | Outpatient (BNVA) | payer MEDICARE, SELFPAY | PROVIDERS: PCP Nurse Practitioner Family; Referring Provider Nurse Practitioner Family; Visit Provider Physical Therapy Assistant | DX: S82.892G Other fracture of left lower leg, subsequent encounter for closed fracture with delayed healing (principal); T81.31XD Disruption of external operation (surgical) wound, not elsewhere classified, subsequent encounter; X58.XXXD Exposure to other specified factors, subsequent encounter | CPT/HCPCS: 99213 ==

== ENCOUNTER → 2024-12-24 14:24 | Outpatient (BNVA) | payer MEDICARE, SELFPAY | PROVIDERS: PCP Nurse Practitioner Family; Referring Provider Nurse Practitioner Family; Visit Provider Surgery | DX: S82.892G Other fracture of left lower leg, subsequent encounter for closed fracture with delayed healing (principal); T81.31XD Disruption of external operation (surgical) wound, not elsewhere classified, subsequent encounter; X58.XXXD Exposure to other specified factors, subsequent encounter | CPT/HCPCS: 29580; 99213 ==

== ENCOUNTER → 2025-01-01 12:41 | Outpatient (BNVA) | payer MEDICARE, SELFPAY | PROVIDERS: PCP Nurse Practitioner Family; Referring Provider Nurse Practitioner Family; Visit Provider Physical Therapy Assistant | DX: S82.892G Other fracture of left lower leg, subsequent encounter for closed fracture with delayed healing (principal); T81.31XD Disruption of external operation (surgical) wound, not elsewhere classified, subsequent encounter; X58.XXXD Exposure to other specified factors, subsequent encounter | CPT/HCPCS: 99211 ==

== ENCOUNTER 2025-01-06 15:24 | Outpatient (CLI) | payer MEDICARE, SELFPAY ==
--- NOTE | 2025-01-06 11:00 | DI.RAD_ITS ---
Exam(s) XR ANKLE LT COMPLETE EXAM: XR ANKLE LT COMPLETE CLINICAL HISTORY: jaden ashford ORIF TECHNIQUE: 2D digital imaging was performed. Three views. COMPARISON: CR XR ANKLE LT 2V from 10/31/2024 FINDINGS: BONES: A fixation plate is again noted along the distal fibula for fracture fixation. There has been increased healing of the fracture. Small bony density again noted beneath the tip of the medial mal leolus no acute fracture is present. No bony destructive lesion is seen. Heel spurs. JOINTS:The ankle mortise is normally aligned. Ankle joint space is maintained. SOFT TISSUE: Normal. IMPRESSION: Continued healing of lateral malleolar fracture. DATA REPOSITORY: RADIATION DOSE DELIVERED:
== END 2025-01-06 15:25 | disposition home or self-care (01) ==
LOC: DIORS 15:25
PROVIDERS: PCP Nurse Practitioner Family; Referring Provider Nurse Practitioner Family; Visit Provider Student in an Organized Health Care Education/Training Program
DX: S82.892D Other fracture of left lower leg, subsequent encounter for closed fracture with routine healing (principal); X58.XXXD Exposure to other specified factors, subsequent encounter
CPT/HCPCS: 99213; 73610

== ENCOUNTER → 2025-01-08 13:12 | Outpatient (BNVA) | payer MEDICARE, SELFPAY | PROVIDERS: PCP Nurse Practitioner Family; Referring Provider Nurse Practitioner Family; Visit Provider Physical Therapy Assistant | DX: Z51.89 Encounter for other specified aftercare (principal); T81.31XD Disruption of external operation (surgical) wound, not elsewhere classified, subsequent encounter; S82.892G Other fracture of left lower leg, subsequent encounter for closed fracture with delayed healing; X58.XXXD Exposure to other specified factors, subsequent encounter | CPT/HCPCS: 99213 ==

== ENCOUNTER 2025-01-13 01:17 | Outpatient (CLI) | payer MEDICARE, SELFPAY ==
--- NOTE | 2025-01-13 | DI.MRI_ITS ---
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 CONTRAST MATERIAL: IV Contrast: 19 mL of Dotarem contrast administered. COMPARISON: MR MRI BRAIN WWO from 07/11/2024 FINDINGS: The examination is limited due to patient motion artifact. VENTRICLES AND EXTRA AXIAL SPACES: Normal in size and morphology for the patient's age. HEMORRHAGE: None. CEREBRAL PARENCHYMA: There are stable post therapeutic changes in the right frontal lobe. No enhance ment is seen to suggest recurrent or residual disease. There are areas of hyperintense signal seen i n the white matter on the FLAIR and T2 weighted images which may reflect therapy and/or chronic micro vascular ischemic change. MIDLINE SHIFT: None. BRAINSTEM/CEREBELLUM: Normal. CALVARIUM: Normal. ENHANCEMENT: No suspicious enhancement identified. VISUALIZED PARANASAL SINUSES/MASTOIDS: Clear. ENTERPRISE OF TINEO: Normal flow void. PITUITARY GLAND: Unremarkable. OTHER FINDINGS: IMPRESSION: 1. Stable appearance of the brain since 07/11/2024. 2. No evidence to suggest recurrent disease. DATA REPOSITORY:
[2025-01-13] MEDS: Normal Saline Flush 10 ML SYR IVP (12:22)
[2025-01-13] MEDS: Gadoterate meglumine 20 ML SYRINGE 19 ML IVP (12:22)
[2025-01-13 12:24] LABS: Abs Immature Grans 0.05 10^3/uL (0.0-0.06); Absolute Eosinophil Count 0.15 10^3/uL (0.0-0.7); Absolute Lymphocyte Count 3.34 10^3/uL (1.2-3.4); Basophils % 0.8 %; Eosinophils % 1.3 %; HCT 51.8 % (40.0-50.0); Immature Grans % 0.4 %; Lymphocytes % 28.2 %; MCHC 30.9 % (32.0-36.0); MCV 94 fL (80-95); MPV 9.6 fL (8.0-11.0); Monocytes % 7.8 %; Neutrophils % 61.5 %; Platelet Count 227 10^3/uL (130-400); RBC 5.51 10^6/uL (4.36-5.78); RDW 13.1 % (11.8-14.1); RDW-SD 45.4 fL; WBC 11.85 10^3/uL (4.4-10.8)
[2025-01-13 12:25] LABS: Absolute Basophil Count 0.09 10^3/uL (0.0-0.2); Absolute Monocyte Count 0.92 10^3/uL (0.1-0.8); Absolute Neutrophil Count 7.29 10^3/uL (1.2-6.7)
[2025-01-13 12:46] LABS: ALT 38 U/L (16-63); AST 44 U/L (15-37); Albumin 3.7 g/dL (3.4-5.0); Alkaline Phosphatase 181 U/L (46-116); Anion Gap 10.4 mmol/L (3-11); BUN 47 mg/dL (7-18); Bilirubin, Total 0.7 mg/dL (0.2-1.0); CO2 32.6 mmol/L (21.0-32.0); CREATININE 1.6 mg/dL (0.70-1.30); Calcium 9.7 mg/dL (8.5-10.1); Chloride 100 mmol/L (98-107); Glucose 97 mg/dL (74-106); LDH 294 U/L (85-227); Potassium 4.3 mmol/L (3.5-5.1); Sodium 143 mmol/L (136-145); Total Protein 6.7 g/dL (6.4-8.2)
== END 2025-01-13 01:37 ==
LOC: DI 01:17
PROVIDERS: PCP Nurse Practitioner Family; Visit Provider Internal Medicine Hematology & Oncology
DX: C83.38 Diffuse large B-cell lymphoma, lymph nodes of multiple sites (principal); Z94.81 Bone marrow transplant status
CPT/HCPCS: 70553; 80053; 83615; 85025

== ENCOUNTER → 2025-01-15 10:43 | Outpatient (BNVA) | payer MEDICARE, SELFPAY | PROVIDERS: PCP Nurse Practitioner Family; Referring Provider Nurse Practitioner Family; Visit Provider Physical Therapy Assistant | DX: Z51.89 Encounter for other specified aftercare (principal); S82.892G Other fracture of left lower leg, subsequent encounter for closed fracture with delayed healing; T81.31XD Disruption of external operation (surgical) wound, not elsewhere classified, subsequent encounter; X58.XXXD Exposure to other specified factors, subsequent encounter | CPT/HCPCS: 99212 ==

== ENCOUNTER → 2025-01-24 11:24 | Outpatient (BNVA) | payer MEDICARE, SELFPAY | PROVIDERS: PCP Nurse Practitioner Family; Visit Provider Physical Therapy Assistant | DX: Z51.89 Encounter for other specified aftercare (principal); T81.31XD Disruption of external operation (surgical) wound, not elsewhere classified, subsequent encounter | CPT/HCPCS: 99213 ==

== ENCOUNTER → 2025-02-05 08:39 | Outpatient (BNVA) | payer MEDICARE, SELFPAY | PROVIDERS: PCP Nurse Practitioner Family; Referring Provider Nurse Practitioner Family; Visit Provider Physical Therapy Assistant | DX: S82.892G Other fracture of left lower leg, subsequent encounter for closed fracture with delayed healing (principal); T81.31XD Disruption of external operation (surgical) wound, not elsewhere classified, subsequent encounter; X58.XXXD Exposure to other specified factors, subsequent encounter | CPT/HCPCS: 99213 ==

== ENCOUNTER 2025-02-07 16:32 | Outpatient (REF) | payer MEDICARE, SELFPAY | END 2025-02-07 16:33 | disposition home or self-care (01) | LOC: LBN 16:32 | PROVIDERS: PCP Nurse Practitioner Family; Visit Provider Physician Assistant Medical | DX: L03.012 Cellulitis of left finger (principal) | CPT/HCPCS: 87077; 87070; 87186; 87205 ==

== ENCOUNTER → 2025-03-03 09:42 | Outpatient (BNVA) | payer MEDICARE, SELFPAY | PROVIDERS: PCP Nurse Practitioner Family; Visit Provider Student in an Organized Health Care Education/Training Program | DX: S82.892D Other fracture of left lower leg, subsequent encounter for closed fracture with routine healing (principal); X58.XXXD Exposure to other specified factors, subsequent encounter | CPT/HCPCS: 99213 ==

== ENCOUNTER → 2025-05-07 13:35 | Outpatient (BNVA) | payer MEDICARE, SELFPAY | PROVIDERS: PCP Nurse Practitioner Family; Visit Provider Registered Nurse | DX: I48.91 Unspecified atrial fibrillation (principal); I42.8 Other cardiomyopathies; Z79.01 Long term (current) use of anticoagulants; Z79.899 Other long term (current) drug therapy | CPT/HCPCS: 99214 ==

== ENCOUNTER → 2025-05-21 12:42 | Outpatient (BNVA) | payer MEDICARE, SELFPAY | PROVIDERS: PCP Nurse Practitioner Family; Referring Provider Nurse Practitioner Family; Visit Provider Surgery | DX: T81.89XD Other complications of procedures, not elsewhere classified, subsequent encounter (principal) | CPT/HCPCS: 97597 ==

== ENCOUNTER → 2025-05-28 11:16 | Outpatient (BNVA) | payer MEDICARE, SELFPAY | PROVIDERS: PCP Nurse Practitioner Family; Referring Provider Nurse Practitioner Family; Visit Provider Surgery | DX: T81.89XD Other complications of procedures, not elsewhere classified, subsequent encounter (principal) | CPT/HCPCS: 99213 ==

== ENCOUNTER → 2025-06-04 14:09 | Outpatient (BNVA) | payer MEDICARE, SELFPAY | PROVIDERS: PCP Nurse Practitioner Family; Referring Provider Nurse Practitioner Family; Visit Provider Surgery | DX: T81.89XD Other complications of procedures, not elsewhere classified, subsequent encounter (principal); R22.42 Localized swelling, mass and lump, left lower limb | CPT/HCPCS: 99214 ==

== ENCOUNTER → 2025-06-11 14:02 | Outpatient (BNVA) | payer MEDICARE, SELFPAY | PROVIDERS: PCP Nurse Practitioner Family; Referring Provider Nurse Practitioner Family; Visit Provider Surgery | DX: T81.89XD Other complications of procedures, not elsewhere classified, subsequent encounter (principal); R60.0 Localized edema | CPT/HCPCS: 99214 ==

== ENCOUNTER → 2025-06-25 14:12 | Outpatient (BNVA) | payer MEDICARE, SELFPAY | PROVIDERS: PCP Nurse Practitioner Family; Referring Provider Nurse Practitioner Family; Visit Provider Surgery | DX: S81.802D Unspecified open wound, left lower leg, subsequent encounter (principal); X58.XXXD Exposure to other specified factors, subsequent encounter | CPT/HCPCS: 99213 ==

== ENCOUNTER → 2025-07-10 10:04 | Outpatient (BNVA) | payer MEDICARE, SELFPAY | PROVIDERS: PCP Nurse Practitioner Family; Referring Provider Nurse Practitioner Family; Visit Provider Surgery | DX: T81.89XD Other complications of procedures, not elsewhere classified, subsequent encounter (principal); S91.002D Unspecified open wound, left ankle, subsequent encounter; X58.XXXD Exposure to other specified factors, subsequent encounter | CPT/HCPCS: 99213 ==

== ENCOUNTER 2025-07-23 01:14 | Outpatient (CLI) | payer MEDICARE, SELFPAY ==
[2025-07-23 11:53] LABS: Abs Immature Grans 0.04 10^3/uL (0.0-0.06); HCT 47.2 % (40.0-50.0); HGB 15.1 g/dL (13.5-17.5); Immature Grans % 0.4 %; MCH 29.9 pg (27.0-33.0); MCHC 32.0 % (32.0-36.0); MCV 94 fL (80-95); MPV 9.9 fL (8.0-11.0); Platelet Count 216 10^3/uL (130-400); RBC 5.05 10^6/uL (4.36-5.78); RDW 13.5 % (11.8-14.1); RDW-SD 46.3 fL; WBC 10.78 10^3/uL (4.4-10.8)
[2025-07-23 12:19] LABS: ALT 32 U/L (16-63); AST 29 U/L (15-37); Albumin 3.4 g/dL (3.4-5.0); Alkaline Phosphatase 157 U/L (46-116); Anion Gap 9.2 mmol/L (3-11); BUN 41 mg/dL (7-18); Bilirubin, Total 0.8 mg/dL (0.2-1.0); CO2 28.8 mmol/L (21.0-32.0); Calcium 9.1 mg/dL (8.5-10.1); Chloride 103 mmol/L (98-107); Estimated GFR 39.50 (mL/min/1.73m2); Glucose 100 mg/dL (74-106); LDH 111 U/L (85-227); Potassium 3.6 mmol/L (3.5-5.1); Sodium 141 mmol/L (136-145); Total Protein 6.5 g/dL (6.4-8.2)
== END 2025-07-23 01:15 | disposition home or self-care (01) ==
LOC: LBO 01:14
PROVIDERS: PCP Nurse Practitioner Family; Visit Provider Nurse Practitioner Adult Health
DX: C83.38 Diffuse large B-cell lymphoma, lymph nodes of multiple sites (principal)
CPT/HCPCS: 36415; 80053; 82784; 83615; 85025

== ENCOUNTER 2025-07-31 15:57 | Outpatient (CLI) | payer MEDICARE, SELFPAY ==
--- NOTE | 2025-07-31 14:20 | DI.RAD_ITS ---
Exam(s) XR ANKLE LT COMPLETE EXAM: XR ANKLE LT COMPLETE CLINICAL HISTORY: DISCUSS HARDWARE REMOVAL TECHNIQUE: 2D digital imaging was performed. Three views. COMPARISON: CR XR ANKLE LT COMPLETE from 01/06/2025 FINDINGS: BONES: The fixation plate remains in place along the distal fibula. There is some cortical thickening medially. The fracture has healed. Small bony density again noted beneath the tip of the medial malleolus. No acute fracture is present. No bony destructive lesion is seen. Prominent heel spurs. JOINTS:The ankle mortise is normally aligned. Tibiotalar joint space is maintained. SOFT TISSUE: Normal. IMPRESSION: Healing of previously noted distal fibular fracture. DATA REPOSITORY: RADIATION DOSE DELIVERED:
== END 2025-07-31 15:58 | disposition home or self-care (01) ==
LOC: DIORS 15:57
PROVIDERS: PCP Nurse Practitioner Family; Referring Provider Nurse Practitioner Family; Visit Provider Student in an Organized Health Care Education/Training Program
DX: S82.892D Other fracture of left lower leg, subsequent encounter for closed fracture with routine healing (principal); X58.XXXD Exposure to other specified factors, subsequent encounter
CPT/HCPCS: 99213; 73610

== ENCOUNTER → 2025-08-14 10:27 | Outpatient (BNVA) | payer MEDICARE, SELFPAY | PROVIDERS: PCP Nurse Practitioner Family; Referring Provider Nurse Practitioner Family; Visit Provider Physical Therapy Assistant | DX: Z12.11 Encounter for screening for malignant neoplasm of colon (principal) | CPT/HCPCS: S0285 ==

== ENCOUNTER → 2025-09-18 13:53 | Outpatient (BNVA) | payer MEDICARE, SELFPAY | PROVIDERS: PCP Nurse Practitioner Family; Referring Provider Nurse Practitioner Family; Visit Provider Student in an Organized Health Care Education/Training Program | DX: S82.892G Other fracture of left lower leg, subsequent encounter for closed fracture with delayed healing (principal); T81.89XD Other complications of procedures, not elsewhere classified, subsequent encounter; X58.XXXD Exposure to other specified factors, subsequent encounter | CPT/HCPCS: 99214 ==

== ENCOUNTER → 2025-09-25 13:45 | Outpatient (BNVA) | payer MEDICARE, SELFPAY | PROVIDERS: PCP Nurse Practitioner Family; Referring Provider Nurse Practitioner Family; Visit Provider Student in an Organized Health Care Education/Training Program | DX: T81.89XD Other complications of procedures, not elsewhere classified, subsequent encounter (principal); S82.892D Other fracture of left lower leg, subsequent encounter for closed fracture with routine healing; X58.XXXD Exposure to other specified factors, subsequent encounter | CPT/HCPCS: 99214 ==

== ENCOUNTER → 2025-10-14 15:06 | Outpatient (CLI) | payer MEDICARE, SELFPAY ==
--- NOTE | 2025-10-14 15:36 | DI.US_ITS ---
APPROVED REPORT EXAM: Comprehensive 2D, Doppler, and color-flow Echocardiogram Patient Location: Out-Patient Indications: Cardiomyopathy, A Fib Other Information Study Quality: Fair. Technically limited study due to body habitus, arrhythmia . Conclusion Normal left ventricular wall thickness and chamber size. Ejection fraction is 35 to 40%. Patient is in atrial fibrillation with [id number] variation. No segmental wall motion abnormalities are identified Mildly enlarged and hypocontractile right ventricle Both atria are moderately dilated Aortic valve is sclerotic and trileaflet with trace to mild regurgitation Mild mitral annular calcification Mild mitral and tricuspid regurgitation Estimated right ventricular systolic pressure is 21 mmHg Wall motion Left Ventricle The left ventricle is normal size. Beat to beat variation throughout exam. Left ventricular systolic function is moderately decreased. There is normal left ventricular wall thickness. Regional wall motion abnormalities cannot be excluded. There is no ventricular septal defect visualized. LVEF is 35-40%. Right Ventricle Right ventricle is borderline dilated. Right ventricle is mildly hypokinetic. Atria The left atrium moderately dilated The right atrium is moderately dilated The interatrial septum is intact with no evidence for an atrial septal defect. Aortic Valve The Aortic valve is sclerotic. Aortic valve is trileaflet. There is no aortic valvular stenosis. Trace to mild aortic regurgitation. Mitral Valve Mild mitral annular calcification. No evidence of mitral valve stenosis. Mild mitral regurgitation. Tricuspid Valve The tricuspid valve is normal in structure. There is no tricuspid valve stenosis. Mild tricuspid regurgitation. The RVSP is 21.2 mmHg. Pulmonic Valve The pulmonary valve is normal in structure. There is no pulmonic valvular stenosis. Mild pulmonic regurgitation. Great Vessels The aortic root is normal in size. The ascending aorta is normal in size. Aortic arch is normal in caliber. IVC is normal in size and collapses >50% with inspiration. Pericardium There is no pericardial effusion. 2D Dimensions IVSD d PLAX 1.02 cm M: 0.6-1.2 Ao Root d 3.48 cm M: 3.1 - 3.7 LVPW d PLAX 1.00 cm M: 0.6 - 1.2 Ao Asc Diam d 3.12 cm M: 2.6 - 3.4 LVID d PLAX 4.24 cm M: 4.2 - 5.8 LVDs 3.33 cm M: 2.5 - 4.0 LV EF Teichholz 43.7 % FS 21.35 % LV EDV (Teich) 80.2 mL LV ESV (Teich) 45.2 mL M-Mode TAPSE 1.36 cm (M/F) >1.7 Auto EF LV EDV A4C 69.2 mL LV EDV A2C 67.4 mL LV EDV BP 67.7 mL LV ESV A4C 44.8 mL LV ESV A2C 43.1 mL LV ESV BP 43.4 mL LVEF(%) A4C 35.3 % LVEF(%) A2C 36.0 % LVEF(%) BP 35.9 % LV SV A4C 24.5 ml LV SV A2C 24.3 ml LV SV BP 24.3 ml LV CO A4C 2.4 L/min LV CO A2C 2.1 L/min LV CO BP 2.2 L/min HR A4C 98.37 BPM HR A2C 84.71 BPM LV EDV Index (BP) RV Strain Global Peak Long. Strain A4C FW 6.47 LA Volume LA Length A4C 5.3 cm LA Length A2C 5.3 cm LA Area A4C s 19.43 cm2 LA Area A2C s 18.44 cm2 LA Vol A4C A-L 60.21 mL LA Vol A2C A-L 54.11 mL LA Vol Biplane A-L 57.1 mL LA Vol/BSA A4C A-L LA Vol/BSA A2C A-L LA Vol/BSA BP A-L 26.8 mL/m2 LA Vol A4C MOD 55.0 mL LA Vol A2C MOD 50.5 mL LA Vol BP MOD 52.7 mL RA Volume RA Area A4C 22.6 cm2 RA ESV A4C (A-L) 67.2mL RA Vol/BSA A4C A-L RA Length A4C 6.4 cm RA ESV A4C (MOD) 62.6mL LV Diastology MV E' medial 0.082 (>0.07 m/s) MV E Vmax 0.78 (0.4-1.3 m/s) MV E' lateral 0.056 (>0.1 m/s) Aortic Valve AoV Vmax 0.93 m/s LVOT Vmax 0.75 m/s AoV Peak Grad 3.5 mmHg LVOT Peak Grad 2.3 mmHg AoV Area (Vmax) 2.52 cm2 LVOT VTI 0.132 m AoV VTI 0.158 m LVOT Mean Grad 1.1 mmHg AoV Mean Brad. 0.73 m/s LVOT SV 41.52 mL AoV Mean Grad 2.2 mmHg LVOT Diam s 1.95 cm AoV Area (VTI) 2.63 cm2 AV Regurg Peak Gr. 3.50 mmHg Velocity Ratio 0.81 Mitral Valve MV Vmax TIPS 0.68 m/s MV Mean Grad 0.7 (<2mmHg) MV Area PHT 4.23 cm2 MV VTI 0.114 m Pulmonary Valve PV Vmax 0.84 (0.5-1.5 m/s) RVOT Vmax 0.41 m/s PV Peak Grad 2.8 mmHg RVOT Peak Gr. 0.7 mmHg PV Mean Brad 0.60 m/s RVOT VTI 0.081 m PV Mean Grad 1.6 mmHg RVOT Mean Gr. 0.4 mmHg Tricuspid Valve RA Pressure 3.00 mmHg TR Vmax 2.13 m/s TV S' 0.08 m/s TR Peak Grad 18.2 mmHg RVSP (TR) 21.2 mmHg
== END ==
LOC: DI 15:06
PROVIDERS: PCP Nurse Practitioner Family; Visit Provider Registered Nurse
DX: I42.9 Cardiomyopathy, unspecified (principal)
CPT/HCPCS: 93306